=== PATIENT | female | born 1985 | race Caucasian/White ===

== ENCOUNTER 2019-09-21 09:35 | Outpatient (CLI) | payer OTHER, SELFPAY ==
--- NOTE | ~2019-09-21 | US_ITS ---
EXAMINATION: US pelvic complete w TV DATE: 09/21/2019 10:19 INDICATION: Possible ovarian cyst. Right pelvic pain. Mass seen on the right ovary on outside facilit y in 2008. Comparison:No prior studies for comparison. TECHNIQUE: Multiple transabdominal and endovaginal sonographic images of the pelvis performed. FINDINGS: The uterus is surgically absent. The left ovary is surgically absent. Right ovary measures 5.4 x 3.6 x 2.3 cm with normal vascularity. There is a complex mass of the right ovary with areas of increased echogenicity measuring 2.6 x 2.2 x 2.1 cm. There is no free fluid in the pelvis. There are no abnormal masses seen on either side. IMPRESSION: 1. Complex 2.6 cm right ovarian mass. Differential diagnosis includes complicated/hemorrhagic cyst, d ermoid, fibroma/thecoma and less likely malignant serous epithelial tumor. Reviewed, dictated and finalized at location A. IMPRESSION: 1. Complex 2.6 cm right ovarian mass. Differential diagnosis includes complicat ed/hemorrhagic cyst, dermoid, fibroma/thecoma and less likely malignant serous epithelial tumor.
== END 2019-09-21 09:36 | disposition home or self-care (01) ==
LOC: CHSIMG 09:42
PROVIDERS: PCP Physician Assistant
DX: N83.209 Unspecified ovarian cyst, unspecified side (principal)
CPT/HCPCS: 76830; 76856

== ENCOUNTER 2020-01-06 11:56 | Observation (INO) | payer OTHER, SELFPAY ==
--- NOTE | ~2020-01-06 | CT_ITS ---
EXAMINATION: CT chest abdomen pelvis wo con DATE: 01/07/2020 08:38 INDICATION: Cough. Nausea and vomiting. TECHNIQUE: Computed tomography (CT) of the chest, abdomen, and pelvis was performed without intraveno us contrast. Automated exposure control and iterative reconstruction technique were employed. The dos e-length product was 624.72 mGy-cm. COMPARISON: CT abdomen and pelvis 05/08/2018 FINDINGS: CHEST CT: There is mild atelectasis in right lower lobe. There is a 3 mm nodule left lower lobe, likely benign. Calcified left hilar lymph nodes are consistent with old granulomatous disease. No pleural effusion. The heart size is normal. No pericardial effusion. There is a small volume of pneumomediastinum. The re are nodules in the thyroid measuring up to 9 mm, likely not clinically significant. Peripherally c alcified masses in the breasts are likely benign. ABDOMEN/PELVIS CT: The liver and gallbladder are normal. Calcifications in the spleen are consistent with old granulomat ous disease. The pancreas, adrenal glands, and kidneys are normal. There is no urolithiasis. There ar e no dilated loops of bowel. The appendix is normal. There are no pathologically enlarged lymph nodes . There is no free intraperitoneal fluid. 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 There is mild lumba r spondylosis. Lumbar levoscoliosis is noted. IMPRESSION: 1. Small volume of pneumomediastinum. Reviewed, dictated and finalized at location A.
[2020-01-06 12:10] VITALS: BP 108/90; PULSE 84; RESP 18; TEMP 36.4; O2SAT 100
[2020-01-06 12:34] LABS: Hematocrit 40.1 % (35.0-49.0); Hemoglobin 13.7 g/dL (12.0-15.0); Mean Corpuscular HGB Conc 34.2 g/dL (32.0-36.0); Mean Corpuscular Hemoglobin 30.3 pg (27.0-31.0); Mean Corpuscular Volume 88.7 fL (78.0-102.0); Mean Platelet Volume 10.5 fl (9.2-11.8); Platelet Count Result 555 K/mm3 (150-420); Red Blood Count 4.52 M/mm3 (4.20-5.40); Red Cell Distribution Width 12.8 % (11.6-14.4); White Blood Count 13.3 K/mm3 (4.8-10.8)
[2020-01-06] MEDS: ONDANSETRON INJ 4 MG/2 ML VIAL IV PUSH (12:38)
[2020-01-06] MEDS: KETOROLAC 30 MG/ML VIAL (*BKC) IV PUSH (12:38)
[2020-01-06] MEDS: SODIUM CHLORIDE 0.9% IV 1,000 ML 999 ML IV CONT (12:38)
[2020-01-06 12:51] LABS: Alanine Aminotransferase 13 U/L (14-59); Albumin Level 4.3 g/dL (3.4-5.0); Alkaline Phosphatase 46 U/L (46-116); Anion Gap 19.4 mmol/L (7-16); Aspartate Amino Transferase 12 U/L (15-37); Bilirubin,Total 0.4 mg/dL (0.00-1.00); Blood Urea Nitrogen 59 mg/dL (7-18); Calcium 10.1 mg/dL (8.5-10.1); Carbon Dioxide 22 mmol/L (21-32); Chloride 98 mmol/L (98-108); Estimated CRCL calculation 25 ml/min; Estimated Glomerular Filt Rate 22; Glucose 110 mg/dL (70-99); Osmolality Calculated 297 mOsm/kg (285-295); Potassium 4.4 mmol/L (3.5-5.1); Sodium 135 mmol/L (136-145); Total Protein 8.6 g/dL (6.4-8.2)
--- NOTE | 2020-01-06 13:04 | ED.NAVMDI ---
HPI - Nausea/Vomiting/Diarrhea General Chief complaint: Nausea/Vomiting/Diarrhea Stated complaint: vomiting Source: patient Mode of arrival: ambulatory Limitations: no limitations History of Present Illness HPI Narrative: this is a 34-year-old female that presents with a 2 week history of nausea with vomiting has increased over the last 2 to 3 days with decreased oral intake secondary to the vomiting, has been vomiting more which is more mucus and watery emesis, with some epigastric discomfort secondary to retching and vomiting. The patient currently has chills with no fever, has a history of fibromyalgia. Has a not been able to drink in and eat that well over the last 2 to 3 days with the nausea and vomiting persisting for the last 2 weeks. Currently there is no diarrhea no fever chills no chest pain no shortness of breath no abdominal pain no dysuria. Patient also has a history of hypertension, currently blood pressure 108/90. MD elicited complaint: nausea and vomiting Onset (ago): week(s) Description of vomiting: watery Associated nausea: Yes Associated abdominal pain: No Location of pain: none Related Data Home Medications Medication Instructions Recorded Confirmed alprazolam 1 mg PO TID 06/16/19 01/06/20 diclofenac sodium 75 mg PO BID 06/16/19 01/06/20 gabapentin 600 mg PO TID 06/16/19 01/06/20 lisinopril 20 mg PO DAILY 06/16/19 01/06/20 nadolol 40 mg PO DAILY 06/16/19 01/06/20 tramadol 50 mg PO TID PRN 06/16/19 01/06/20 Allergies Allergy/AdvReac Type Severity Reaction Status Date / Time ampicillin Allergy Unknown Rash Verified 06/16/19 16:36 morphine Allergy Unknown Rash Verified 06/16/19 16:36 amoxicillin [From Augmentin] Allergy Rash Verified 06/16/19 16:36 clavulanic acid Allergy Rash Verified 06/16/19 16:36 [From Augmentin] metoclopramide [From Reglan] Allergy Unknown Verified 01/06/20 12:09 Review of Systems Review of Systems: All systems reviewed & are unremarkable except as noted in HPI and below PMFSH Past Medical History Medical History Fibromyalgia HTN (hypertension) Family History Family History Father Family history of cardiovascular disease Sibling Family history of malignant neoplasm of bone Social History Social History Smoking status: Never smoker Alcohol intake: never Exam Const: General: no acute distress Orientation/consciousness: patient oriented x3 HENMT: Head: normal to inspection Eyes: Pupils: Equal, round and reactive pupils present EOM: EOMs intact bilaterally Neck: Neck: normal visual inspection, no lymphadenopathy and no meningeal signs Chest: Chest palpation & inspection: normal inspection of the chest Resp: Effort & Inspection: normal respiratory effort Cardio: Rate: regular rate Rhythm: regular rhythm GI: GI Palp: Yes Soft to palpation : General: Yes no CVA tenderness Back/Spine/Pelvis: Back: no CVA tenderness Skin: General skin exam: normal color Rashes: no rashes Neuro: General: patient oriented x3 and moves all extremities Extrem: General: normal to inspection Psych: Mental Status: mental status grossly normal Course Course Emergency Course: reassessment of patient after she received IV Zofran and IV Toradol patient continues to have some retching vomiting has improved patient feels chilled, and advised that her creatinine is elevated showing that she has acute renal insufficiency on top of a dehydration and will admit patient under observation. With hydration and nausea and vomiting control. Vital Signs Vital signs: Vital Signs Temperature 36.4 C L 01/06/20 12:10 Pulse Rate 84 01/06/20 12:10 Respiratory Rate 18 01/06/20 12:10 Blood Pressure 108/90 01/06/20 12:10 Pulse Oximetry 100 01/06/20 12:10 Temperature 36.4 C L 01/06/20 12:10 P
[2020-01-06 13:13] VITALS: BP 139/78; PULSE 67; RESP 16; O2SAT 99
[2020-01-06 13:14] LABS: Add Urine Microscopic? YES; Appearance Urine Clear (Clear); Bilirubin Urine 2+ (Negative); Blood Urine Negative (Negative); Color Urine Yellow (Yellow); Glucose Urine UA Negative (Negative); Ketones Urine 1+ (Negative); Leukocyte Esterase Ur Negative (Negative); Nitrate Urine Negative (Negative); Protein Urine Trace (Negative); Specific Grav Ur >= 1.030 (1.010-1.020); Urobilinogen Urine 0.2 mg/dL (0.2-1.0)
[2020-01-06 13:19] LABS: Bacteria Urine 4+ /hpf; RBC Urine 0-2 /hpf (0-2); Squamous Epithelial Cell Urine Few /hpf (Few); WBC Urine 0-3 /hpf (0-3)
[2020-01-06 13:20] LABS: Mucus Urine Few /lpf
[2020-01-06 13:35] LABS: Lactic Acid Reflex 1.6 mmol/L (0.4-2.0)
[2020-01-06 13:50] VITALS: BMI 26.1
[2020-01-06 14:00] VITALS: BP 143/86; PULSE 63; RESP 18; TEMP 36.6; O2SAT 99
--- NOTE | 2020-01-06 14:09 | ADMGEN ---
This patient, Rubi Huber, was admitted to 2nd Floor Room 227-2. Patient/family oriented to hospital policies and general routines including ID bracelet, bed and alarms, visiting hours, pain management, procedures, bathroom and other care routines, personal items, smoking policy, room service/diet, and visiting hours. Valuables list has been completed. Information on how to activate the Rapid Response Team has been discussed. Patient/Family are encouraged to report perceived risks to care and to ask questions if they do not understand what they are told or what they should do.
[2020-01-06] MEDS: SODIUM CHLORIDE 0.9% IV 1,000 ML 100 ML IV CONT (15:11)
[2020-01-06] MEDS: GABAPENTIN 300 MG CAPSULE 600 MG PO (17:41)
[2020-01-06] MEDS: traMADol HCL 50 MG TABLET PO (17:41)
[2020-01-06] MEDS: ALPRAZolam 0.5 MG TABLET 1 MG PO (17:41)
--- NOTE | 2020-01-06 19:32 | PC.NURSE ---
Patient in bed resting. Alert and oriented x3. Call light in reach. Drinking water and eating saltine crackers.
[2020-01-06 20:00] VITALS: BP 105/67; PULSE 63; RESP 14; TEMP 36.3; O2SAT 98
--- NOTE | 2020-01-06 20:30 | PC.NURSE ---
Patient reports pain level at 2-acceptable level. Able to eat saltine crackers without nausea occuring.
--- NOTE | 2020-01-06 22:27 | PC.NURSE ---
Patient in bed. Pain level at 1 call light in reach.
--- NOTE | 2020-01-06 23:56 | PC.NURSE ---
Pt asleep and no signs of discomfort noted.
[2020-01-07] VITALS (9 sets, daily range): BP systolic 84–118; BP diastolic 50–76; PULSE 56–78; RESP 18–20; TEMP 36.3–37.2; O2SAT 96–99
--- NOTE | 2020-01-07 00:33 | PC.NURSE ---
Pt up to the bathroom and voided 100 ml of clear, yellow urine. Pt back to bed per self.
[2020-01-07] MEDS: SODIUM CHLORIDE 0.9% IV 1,000 ML 100 ML IV CONT ×2 (01:40→16:24)
--- NOTE | 2020-01-07 02:09 | PC.NURSE ---
0140 New bag of IV fluid hung and infusing as ordered.
--- NOTE | 2020-01-07 03:04 | PC.NURSE ---
Pt asleep and no signs of discomfort noted. IV fluid continues to infuse as ordered.
--- NOTE | 2020-01-07 04:39 | PC.NURSE ---
Pt asleep and no signs of nausea noted. IV fluid continues to infuse as ordered.
--- NOTE | 2020-01-07 04:59 | PC.NURSE ---
Notified Dr. Quijano of pt's low blood pressure; Orders received and noted.
[2020-01-07] MEDS: SODIUM CHLORIDE 0.9% IV 500 ML IV CONT (05:28)
[2020-01-07 05:55] LABS: Basophils Absolute Auto 0.04 K/mm3 (0.00-0.10); Basophils Percent Auto 0.6 % (0.0-1.0); Eosinophils Absolute Auto 0.26 K/mm3 (0.02-0.50); Eosinophils Percent Auto 3.6 % (1.0-6.0); Hematocrit 28.9 % (35.0-49.0); Hemoglobin 9.5 g/dL (12.0-15.0); Immature Granulocyte Absolute 0.02 K/mm3 (0.00-0.00); Immature Granulocyte Percent A 0.3 % (0.0-0.0); Lymphocytes Absolute Auto 2.68 K/mm3 (1.10-4.50); Lymphocytes Percent Auto 37.4 % (18.0-42.0); Mean Corpuscular HGB Conc 32.9 g/dL (32.0-36.0); Mean Corpuscular Hemoglobin 30.3 pg (27.0-31.0); Mean Platelet Volume 9.9 fl (9.2-11.8); Monocytes Absolute Auto 0.41 K/mm3 (0.10-0.90); Monocytes Percent Auto 5.7 % (2.0-11.0); Neutrophils Absolute Auto 3.8 K/mm3 (1.7-7.2); Neutrophils Percent Auto 52.4 % (50.0-70.0); Platelet Count Result 249 K/mm3 (150-420); Red Blood Count 3.14 M/mm3 (4.20-5.40); White Blood Count 7.2 K/mm3 (4.8-10.8)
[2020-01-07 06:11] LABS: Alanine Aminotransferase 8 U/L (14-59); Albumin Level 2.9 g/dL (3.4-5.0); Alkaline Phosphatase 32 U/L (46-116); Anion Gap 12.9 mmol/L (7-16); Aspartate Amino Transferase 12 U/L (15-37); Bilirubin,Total 0.3 mg/dL (0.00-1.00); Blood Urea Nitrogen 51 mg/dL (7-18); Carbon Dioxide 25 mmol/L (21-32); Chloride 103 mmol/L (98-108); Estimated CRCL calculation 32 ml/min; Estimated Glomerular Filt Rate 30; Glucose 79 mg/dL (70-99); Osmolality Calculated 296 mOsm/kg (285-295); Potassium 3.9 mmol/L (3.5-5.1); Sodium 137 mmol/L (136-145)
--- NOTE | 2020-01-07 06:28 | PC.NURSE ---
Pt resting quietly in bed and watching t.v. Pt voided 250 ml of clear, yellow urine. Pt doesnt voice any c/o nausea and IV fluid continues to infuse as ordered.
[2020-01-07] MEDS: ONDANSETRON INJ 4 MG/2 ML VIAL IV PUSH (07:20)
--- NOTE | 2020-01-07 07:24 | ECG_ITS ---
Measurements Intervals [place] Rate: 64 P: 79 [place]: 162 QRS: 62 QRSD: 92 T: 29 QT: 424 QTc: 440 Interpretive Statements SINUS RHYTHM BORDERLINE ST ABNORMALITY- INFERIOR LEADS BORDERLINE ECG Electronically Signed On 01-07-2020 8:23:05 CDT by Arthur Nick D.O.
[2020-01-07 07:46] LABS: Creatine Kinase 32 U/L (26-192); Lipase 203 U/L (73-393); Phosphorus 3.4 mg/dL (2.6-4.7)
[2020-01-07 07:47] LABS: Lactate Dehydrogenase 112 U/L (81-234); Magnesium 1.7 mg/dL (1.8-2.4)
[2020-01-07 07:48] LABS: Thyroid Stimulating Hormone Reflex 0.44 u/IU/mL (0.36-3.74); Troponin I < 0.02 ng/mL (0.00-0.056)
[2020-01-07] MEDS: PANTOPRAZOLE SODIUM IV 40 MG VIAL IV PUSH ×2 (08:09→21:33)
[2020-01-07] MEDS: diphenhydrAMINE HCl INJ 50 MG/ML VIAL IV PUSH (09:45)
[2020-01-07] MEDS: MAGNESIUM SULF 2 GM/WATER 50ML 2 GM/50 ML BAG IVPB (10:47)
[2020-01-07 11:19] LABS: Amphetamine Screen Urine Negative (Negative); Barbiturate Screen Urine Negative (Negative); Benzodiazepines Screen Urine Negative (Negative); Cannabinoid Screen Urine Negative (Negative); Cocaine Screen Urine Negative (Negative); Methadone Screen Urine Negative (Negative); Opiate Screen Urine Negative (Negative); Phencyclidine Screen Urine Negative (Negative)
--- NOTE | 2020-01-07 12:24 | PM.IMHP ---
H&P: HPI History of Present Illness Chief complaint: vomiting <Lisha Machuca, LINE FISHER - Last Filed: 01/07/20 15:25> Narrative: Rubi Huber is a 34 year old female admitted with Acute renal failure, dehydration, Nausea, and Vomiting. She has had a 2 week history of nausea with vomiting; increased over the last 2 to 3 days with decreased oral intake secondary to the vomiting. Her vomiting is more mucus and watery emesis, with some epigastric discomfort secondary to retching and vomiting. The patient currently has chills with no fever, has a history of fibromyalgia. She has not been able to drink or eat that well over the last 2 to 3 days. The nausea and vomiting persisted for the last 2 weeks. Today, she denies, diarrhea, fever, chills, chest pain , shortness of breath, abdominal pain, but did admit to dysuria. Patient also has a history of hypertension, currently blood pressure 108/90 at admission. She takes lisinopril and nadolol for HTN. Rubi has been taking oral Cipro for the last week due to her having a tooth abscessed. She had phoned in to her dentist and received a prescription for the oral Cipro. She stated that she probably got in about 4-5 days of the oral Cipro without vomiting it back up, but doubted that she absorbed the last 2-3 days of her Cipro. She did state that the few days she could keep her Cipro down did bring her great relief to her to his. She stated that the pain and swelling was much reduced and improved. She now only has jaw or gum or dental pain with deep palpation or biting down on the tooth. She stated that she was unable to get an appointment with her dentist because of the backup of appointments due to COVID. In the ED, she received IV Zofran, and IV Toradol. Her PCP is RADHA Carlin. This morning she continued to have strong retching and vomiting episodes. Ordered her to have an NPO except meds diet. She denies any anxiety at this time, denies chest pain or shortness of breath or nausea, denies any back pain or persistent abdominal pain. She states that she feels a squeezing-type pressure near her belly button area and feels like the only way she can get relief is to vomit. She does not get any relief with bowel movements or with passing gas or with burping. She is not having any excessive flatulence or burping at this time. She is not having diarrhea at this time. She states that she did have 1 episode of emesis with a very small amount of coffee-grounds, and 1 episode of a stool that had been darkened. We have ordered occult stool sample. Her hemoglobin and hematocrit on her CBC is stable and she is currently not having an active GI bleed per assessment, upper or lower. I have ordered Continuous cardiac telemetry monitoring, IV Benadryl, IV Ativan p.r.n., IV Protonix b.i.d., IV bactrim, and IV Zofran. Her CT scan Chest/abd/pelvis did show Small volume of pneumomediastinum. I did telephone and speak to the radiologist Dr. Travis, Aidan Cain MD and he stated that he would not transfer this patient due to that finding. Dr. Travis stated the pneumomediastinum was mild and a small amount, and would resolve spontaneously on his own without any intervention, and that it was likely from her prolonged and multiple episodes of retching and vomiting over the last many days. Both Dr. Boyle and I examined the patient extensively for any concerns that might be related to pneumomediastinum, she is not having any difficulty swallowing pills or medications or breathing, she is not having any dyspnea or shortness of breath or chest pain or hypotension or tachycardia or fever, she does not have any subcutaneous air in her neck or upper chest or shoulders , no distended neck veins, and no abnormal heart sounds at this time. I educated the patient about the urgency of letting us know if anything changes. This afternoon her nausea and vomiting had improved enough that she was requesting some crackers. Changed h
[2020-01-07] MEDS: GABAPENTIN 300 MG CAPSULE 600 MG PO ×2 (13:48→17:09)
[2020-01-07] MEDS: traMADol HCL 50 MG TABLET PO ×2 (13:48→21:39)
--- NOTE | 2020-01-07 16:26 | PM.EVENT ---
Event Note Event Note Event Note: Nausea and vomiting for several weeks, recently worse assoc. with intermittent lower abdominal pain. Has been on Cipro for a tooth abscess. About 3 weeks ago was on nitrofurantoin for UTI and dysuria. Pt. states dysuria recurred today. Pt developed hypotenstion this AM which has resolved. She has pyuria, acute kidney disease, and drop in hgb from 13.7 to 9.[address] abdomen gives no clues on etiology. I spoke with patient who states she had one episode of dark emesis and one episode of dark stools. Pt. has epigastric tenderness without guarding or rebound. I reviewed case with Lisha Hsu NP. and reviewed note. UTI: Will tx with IV Bactrim (If UTI organism sens. to fluoroquinolone Cipro should have treated it). Abd pain: treat for gastritis. Could be ms. tenderness from vomiting; possibly g.b. sludge and biliary colic. Acute kidney disease: suspect prerenal azotemia. Will follow BUN/Cr. Continue po and IV fluids. Drop in hemoglobin likely related to hemoconcentration and fluid replacement. Cause of anemia has not been identified. May need upper endoscopy.Follow stool for blood. Tx. with PPI, follow CBC.
[2020-01-07] MEDS: PHENAZOPYRIDINE HCL 100 MG TABLET 200 MG PO (17:08)
--- NOTE | 2020-01-07 18:20 | PC.NURSE ---
Patient resting in bed with hob elevated. IV fluids cont. per order. Patient states pyridium is helping with bladder spasms/pain. Reports no needs at this time. call light at side.
--- NOTE | 2020-01-07 19:35 | PC.NURSE ---
pt resting in bed watching tv, denies any pain or needs at this time, iv fluids infusing per order
--- NOTE | 2020-01-07 21:30 | PC.NURSE ---
pt resting in bed watching tv, c/o bladder pain, medication given see MAR, iv fluids infusing per order, denies any other needs at this time.
--- NOTE | 2020-01-07 22:46 | PC.NURSE ---
pt sleeping, no evidence of distress noted at this time, iv fluids infusing per order
--- NOTE | 2020-01-08 00:47 | PC.NURSE ---
pt sleeping, no evidence of distress noted at this time, iv fluids infusing per order
--- NOTE | 2020-01-08 02:24 | PC.NURSE ---
pt sleeping, no evidence of distress noted at this time
[2020-01-08] MEDS: SODIUM CHLORIDE 0.9% IV 1,000 ML 100 ML IV CONT (04:29)
[2020-01-08 04:45] VITALS: BP 92/48; PULSE 58; RESP 18; TEMP 36.5; O2SAT 97
--- NOTE | 2020-01-08 04:45 | PC.NURSE ---
pt resting in bed, denies any pain, iv fluids infusing per order
[2020-01-08 06:04] LABS: Basophils Absolute Auto 0.04 K/mm3 (0.00-0.10); Basophils Percent Auto 0.7 % (0.0-1.0); Eosinophils Absolute Auto 0.22 K/mm3 (0.02-0.50); Eosinophils Percent Auto 3.8 % (1.0-6.0); Hematocrit 27.2 % (35.0-49.0); Hemoglobin 9.1 g/dL (12.0-15.0); Immature Granulocyte Absolute 0.02 K/mm3 (0.00-0.00); Immature Granulocyte Percent A 0.3 % (0.0-0.0); Lymphocytes Percent Auto 37.8 % (18.0-42.0); Mean Corpuscular HGB Conc 33.5 g/dL (32.0-36.0); Mean Corpuscular Hemoglobin 30.5 pg (27.0-31.0); Mean Corpuscular Volume 91.3 fL (78.0-102.0); Monocytes Absolute Auto 0.33 K/mm3 (0.10-0.90); Monocytes Percent Auto 5.7 % (2.0-11.0); Neutrophils Percent Auto 51.7 % (50.0-70.0); Platelet Count Result 210 K/mm3 (150-420); Red Blood Count 2.98 M/mm3 (4.20-5.40); Red Cell Distribution Width 12.9 % (11.6-14.4); White Blood Count 5.8 K/mm3 (4.8-10.8)
[2020-01-08 06:22] LABS: Alanine Aminotransferase 8 U/L (14-59); Albumin Level 2.6 g/dL (3.4-5.0); Alkaline Phosphatase 27 U/L (46-116); Aspartate Amino Transferase 11 U/L (15-37); Bilirubin,Total 0.2 mg/dL (0.00-1.00); Blood Urea Nitrogen 25 mg/dL (7-18); Calcium 7.9 mg/dL (8.5-10.1); Carbon Dioxide 23 mmol/L (21-32); Chloride 106 mmol/L (98-108); Estimated CRCL calculation 38 ml/min; Estimated Glomerular Filt Rate 36; Glucose 82 mg/dL (70-99); Osmolality Calculated 289 mOsm/kg (285-295); Sodium 138 mmol/L (136-145); Total Protein 5.6 g/dL (6.4-8.2)
[2020-01-08 08:00] VITALS: BP 106/64; PULSE 70; RESP 18; TEMP 36.7; O2SAT 96
--- NOTE | 2020-01-08 08:39 | PM.DS ---
DS: Admitting Diagnosis Admitting Diagnosis Admitting Diagnosis: Acute kidney failure, unspecified DS: Discharge Diagnosis Discharge Diagnosis (1) Acute renal failure: Qualifiers: Acute renal failure type: unspecified Qualified Code(s): N17.9 - Acute kidney failure, unspecified Code(s): N17.9 - Acute kidney failure, unspecified Status: Acute Assessment and Plan: slowly improving creatinine level Creatinine level now 1.6 patient stated that a history of having renal insufficiency before. her May 2019 creatinine was 1.25 at her last ER visit when she had a UTI at that time. Her creatinine at ER admission for this visit was 2.48, with an improved creatinine this morning of 1.92. she is able to keep fluids down and has been instructed to continue oral hydration at home continue to monitor with lab work she was also educated about avoiding nephrotoxic medications she will need to follow-up with her primary care physician for further lab work and monitoring (2) Nausea & vomiting: Qualifiers: Vomiting Intractability: non-intractable Vomiting type: unspecified Qualified Code(s): R11.2 - Nausea with vomiting, unspecified Code(s): R11.2 - Nausea with vomiting, unspecified Status: Acute Assessment and Plan: resolved retching and vomiting episodes. bland diet ordered denies any anxiety at this time, denies abdominal pain now, states its more like bladder cramps with urination not having diarrhea at this time. ordered occult stool sample. hemoglobin and hematocrit on her CBC is stable and she is currently not having an active GI bleed per assessment, upper or lower. D/C'd continuous IV fluids PRN IV Benadryl, IV Ativan p.r.n., IV Protonix b.i.d., IV bactrim, and IV Zofran. NO s/s of Concerns of pneumomediastinum on Exam. Nausea and vomiting has much improved overnight and this morning. (3) UTI (urinary tract infection): Code(s): N39.0 - Urinary tract infection, site not specified Status: Acute Assessment and Plan: her May 2019 creatinine was 1.25 at her last ER visit when she had a UTI at that time. Her creatinine at ER admission for this visit was 2.48, with an improved creatinine this morning of 1.92. Improved further to 1.61 urinalysis shows evidence of a urinary tract infection but urine culture and blood cultures show no growth (possible colonizers) checked for Trichamonas - negative. continued her Bactrim from IV to oral at discharge for a full course her creatinine clearance has improved since her admission adquately rehydrated will need to f/u with PCP may get urine culture AFTER all antibiotics are done DS: Summary Time Spent with Patient Time attestation: Total time spent providing and/or coordinating discharge services:>90 Exam Const: General: no acute distress; No confusion Orientation/consciousness: patient oriented x3 and No confusion HENMT: Head: normal to inspection Eyes: Pupils: Equal, round and reactive pupils present EOM: EOMs intact bilaterally Direct Ophthalmoscopy: No photophobia Neck: Neck: normal visual inspection, no lymphadenopathy and no meningeal signs Chest: Chest palpation & inspection: normal inspection of the chest Resp: Effort & Inspection: normal respiratory effort Cardio: Rate: regular rate Rhythm: regular rhythm : General: Yes no CVA tenderness Back/Spine/Pelvis: Back: no CVA tenderness Skin: General skin exam: normal color Rashes: no rashes Neuro: General: patient oriented x3, moves all extremities, no meningeal signs and No confusion Cranial nerves: Yes Equal, round and reactive pupils present and Yes Normal hearing present Speech: No Abnormal speech present Extrem: General: normal to inspection Psych: Mental Status: mental status grossly normal DS: Data Data Completed and Pending Labs on day of discharge: Labs from last 24 hours 01/08/20 0
[2020-01-08 08:46] LABS: Magnesium 1.8 mg/dL (1.8-2.4)
[2020-01-08] MEDS: PHENAZOPYRIDINE HCL 100 MG TABLET 200 MG PO ×2 (10:15→13:14)
[2020-01-08] MEDS: GABAPENTIN 300 MG CAPSULE 600 MG PO ×2 (10:15→13:48)
[2020-01-08] MEDS: PANTOPRAZOLE SODIUM IV 40 MG VIAL IV PUSH (10:16)
[2020-01-08] MEDS: ONDANSETRON INJ 4 MG/2 ML VIAL IV PUSH (11:39)
[2020-01-08 12:00] VITALS: BP 110/77; PULSE 70; PULSE 72; RESP 18; TEMP 36.8; O2SAT 100
[2020-01-08 13:05] VITALS: BP 110/77; PULSE 70
[2020-01-08 13:06] VITALS: BP 138/81; PULSE 72
[2020-01-08 13:07] VITALS: BP 121/92; PULSE 80
[2020-01-08 15:40] LABS: Occult Blood Negative (Negative)
[2020-01-08 15:46] LABS: Trichomonas Negative (Negative); Trichomonas Source Vaginal (Female)
== END 2020-01-08 16:40 | disposition home or self-care (01) ==
LOC: CHSED 13:32 → CHS2ND 13:33
PROVIDERS: Nurse Practitioner; Admitting Provider Emergency Medicine; Emergency Provider Emergency Medicine; PCP Physician Assistant; Visit Provider Emergency Medicine
DX: E86.0 Dehydration (principal); R11.2 Nausea with vomiting, unspecified; N17.9 Acute kidney failure, unspecified; N39.0 Urinary tract infection, site not specified; M79.7 Fibromyalgia; I10 Essential (primary) hypertension
CPT/HCPCS: 36415; 71250; 74176; 80053; 80307; 81001; 82272; 82550; 82553; 83605; 83615; 83690; 83735; 84100; 84443; 84484; 85025; 85027; 87040; 87086; 87088; 87210; 93005; 96361; 96365; 96366; 96367; 96374; 96375; 96376; 99283; 99285; A9270; C9113; G0378; G0379; J1200; J1885; J1956; J2060; J2405; J3475; J7030; J7040; J7060

== ENCOUNTER 2020-04-04 14:22 | Emergency (ER) | payer OTHER, SELFPAY ==
--- NOTE | ~2020-04-04 | CT_ITS ---
EXAMINATION: CT abdomen pelvis w con INDICATION: Nausea, vomiting, and diarrhea TECHNIQUE: Computed tomographic images of the abdomen and pelvis were obtained after the administrati on of 100 cc of Omnipaque 350 intravenous contrast. The dose-length product (DLP) was 695.87 mGy-cm. Automated exposure control and iterative reconstruction technique were employed. COMPARISON: 01/07/2020, 05/08/2018 FINDINGS: The lung bases are clear. The heart size is normal. Peripherally calcified masses of the ri ght breast with fat necrosis. Punctate calcification of the otherwise normal spleen is consistent wit h old granulomatous disease. The liver, pancreas, gallbladder, and adrenal glands are normal. The kid neys are unremarkable. No pathologically enlarged abdominal or pelvic lymph nodes are identified. The re is no free intraperitoneal gas or evidence of bowel obstruction. The appendix is normal. IMPRESSION: 1. No CT correlate for the patient's symptoms. Reviewed, dictated and finalized at location A.
--- NOTE | 2020-04-04 14:26 | ED.NAVMDI ---
HPI - Nausea/Vomiting/Diarrhea General Chief complaint: Nausea/Vomiting/Diarrhea Stated complaint: nausea vomiting diarrhea Source: patient and RN notes reviewed Mode of arrival: ambulatory Limitations: no limitations History of Present Illness MD elicited complaint: nausea, vomiting and diarrhea Onset (ago): hour(s) (8) Description of vomiting: food contents and bilious Description of diarrhea: watery Associated nausea: Yes Associated abdominal pain: No Exacerbating factors: eating Relieving factors: none Associated symptoms: denies other symptoms Treatment prior to arrival: other ( Reglan) Related Data Home Medications Medication Instructions Recorded Confirmed alprazolam 1 mg PO TID 06/16/19 04/04/20 diclofenac sodium 75 mg PO BID 06/16/19 04/04/20 gabapentin 600 mg PO TID 06/16/19 04/04/20 lisinopril 20 mg PO DAILY 06/16/19 04/04/20 nadolol 40 mg PO DAILY 06/16/19 04/04/20 tramadol 50 mg PO TID PRN 06/16/19 04/04/20 ondansetron 8 mg PO TID PRN 04/04/20 04/04/20 Allergies Allergy/AdvReac Type Severity Reaction Status Date / Time ampicillin Allergy Unknown Rash Verified 04/04/20 14:52 morphine Allergy Unknown Rash Verified 04/04/20 14:52 amoxicillin [From Augmentin] Allergy Rash Verified 04/04/20 14:52 clavulanic acid Allergy Rash Verified 04/04/20 14:52 [From Augmentin] metoclopramide [From Reglan] Allergy Unknown Verified 04/04/20 14:52 sulfamethoxazole Allergy Unknown Verified 04/04/20 14:52 [From Septra] trimethoprim [From Septra] Allergy Unknown Verified 04/04/20 14:52 Review of Systems Review of Systems: All systems reviewed & are unremarkable except as noted in HPI and below PMFSH Past Medical History Medical History Fibromyalgia HTN (hypertension) Family History Family History Father Family history of cardiovascular disease Sibling Family history of malignant neoplasm of bone Social History Social History Years smoked: 8 Smoking status: Former smoker Tobacco type: cigarettes Smoking end date: 06/30/11 Alcohol intake: never Substance use: never Gender identity (if verbalized by the patient): Female Spiritual care concerns: No Exam Const: General: no acute distress and ill appearing acutely Nutritional Appearance: well nourished Other: female nurse in room during examination. HENMT: Head: normal to inspection Ears: external ears normal Eyes: Cornea: corneas normal Pupils: Equal, round and reactive pupils present EOM: EOMs intact bilaterally Resp: Effort & Inspection: normal respiratory effort Auscultation: clear to auscultation bilaterally Cardio: Rate: regular rate Rhythm: regular rhythm GI: GI Palp: Yes Soft to palpation, Yes Tenderness to palpation present (GI) ( Mild, generalized), No Guarding due to palpation present (GI) and No Rebound tenderness present Auscultation: normal bowel sounds : General: Yes no CVA tenderness Back/Spine/Pelvis: Cervical Spine: cervical ROM normal Thoracic/Lumbar Spine: thoraco-lumbar ROM normal Skin: General skin exam: normal color Rashes: no rashes Neuro: General: patient oriented x3, moves all extremities and no focal motor deficits Speech: normal speech Gait exam (Neuro): Normal gait present Extrem: General: normal to inspection and no clubbing, cyanosis or edema Psych: Appearance: grossly normal and well kempt Mental Status: mental status grossly normal Affect: normal affect Attitude: cooperative Thought content: Yes Normal thought content present Course Vital Signs Vital signs: Vital Signs Temperature 36.4 C 04/04/20 14:41 Pulse Rate 77 04/04/20 14:41 Respiratory Rate 20 04/04/20 14:41 Blood Pressure 125/91 H 04/04/20 14:41 Pulse Oximetry 97 04/04/20 14:41 Temperature 36.4 C 04/04/20 14:41 Pulse Rate 72 10
[2020-04-04 14:41] VITALS: BP 125/91; PULSE 77; RESP 20; TEMP 36.4; O2SAT 97
[2020-04-04 14:48] LABS: Basophils Absolute Auto 0.06 K/mm3 (0.00-0.10); Basophils Percent Auto 0.4 % (0.0-1.0); Eosinophils Absolute Auto 0.56 K/mm3 (0.02-0.50); Eosinophils Percent Auto 3.8 % (1.0-6.0); Hematocrit 42.4 % (35.0-49.0); Hemoglobin 14.6 g/dL (12.0-15.0); Immature Granulocyte Absolute 0.05 K/mm3 (0.00-0.00); Immature Granulocyte Percent A 0.3 % (0.0-0.0); Lymphocytes Absolute Auto 2.32 K/mm3 (1.10-4.50); Lymphocytes Percent Auto 15.9 % (18.0-42.0); Mean Corpuscular HGB Conc 34.4 g/dL (32.0-36.0); Mean Corpuscular Hemoglobin 30.5 pg (27.0-31.0); Mean Corpuscular Volume 88.5 fL (78.0-102.0); Monocytes Percent Auto 3.4 % (2.0-11.0); Neutrophils Absolute Auto 11.1 K/mm3 (1.7-7.2); Neutrophils Percent Auto 76.2 % (50.0-70.0); Platelet Count Result 471 K/mm3 (150-420); Red Blood Count 4.79 M/mm3 (4.20-5.40); Red Cell Distribution Width 12.3 % (11.6-14.4); White Blood Count 14.6 K/mm3 (4.8-10.8)
[2020-04-04 14:50] LABS: Add Urine Microscopic? YES; Appearance Urine Clear (Clear); Bilirubin Urine 1+ (Negative); Blood Urine Negative (Negative); Color Urine Yellow (Yellow); Glucose Urine UA Negative (Negative); Ketones Urine Negative (Negative); Leukocyte Esterase Ur Negative LEU/UL (Negative); Nitrate Urine Negative (Negative); Protein Urine Trace (Negative); Specific Grav Ur >= 1.030 (1.010-1.020); Urobilinogen Urine 0.2 mg/dL (0.2-1.0)
[2020-04-04] MEDS: PROMETHAZINE HCL 25 MG/ML AMPUL IM (14:55)
[2020-04-04 14:56] LABS: Bacteria Urine 3+ /hpf; RBC Urine 0-2 /hpf (0-2); Squamous Epithelial Cell Urine Moderate /hpf (Few); WBC Urine 0-3 /hpf (0-3)
[2020-04-04 15:04] LABS: Alanine Aminotransferase 27 U/L (14-59); Albumin Level 4.2 g/dL (3.4-5.0); Alkaline Phosphatase 62 U/L (46-116); Anion Gap 11 mmol/L (8-16); Aspartate Amino Transferase 14 U/L (15-37); Bilirubin,Total 0.4 mg/dL (0.00-1.00); Blood Urea Nitrogen 16 mg/dL (7-18); CRP 0.7 mg/dL (0.0-0.9); Calcium 9.4 mg/dL (8.5-10.1); Carbon Dioxide 24 mmol/L (21-32); Chloride 103 mmol/L (98-108); Estimated CRCL calculation 51 ml/min; Estimated Glomerular Filt Rate 52; Glucose 110 mg/dL (70-99); Lipase 117 U/L (73-393); Osmolality Calculated 288 mOsm/kg (285-295); Potassium 4.3 mmol/L (3.5-5.1); Sodium 138 mmol/L (136-145); Total Protein 8.3 g/dL (6.4-8.2)
[2020-04-04 16:51] VITALS: PULSE 72; RESP 20; O2SAT 98
== END 2020-04-04 16:53 | disposition home or self-care (01) ==
PROVIDERS: Emergency Provider Emergency Medicine; PCP Physician Assistant
DX: K52.9 Noninfective gastroenteritis and colitis, unspecified (principal)
CPT/HCPCS: 36415; 74177; 80053; 81001; 83690; 85025; 86140; 96372; 99283; 99284; J2550; Q9965

== ENCOUNTER 2020-10-04 09:11 | Outpatient (CLI) | payer OTHER, SELFPAY ==
--- NOTE | ~2020-10-04 | US_ITS ---
EXAMINATION: US pelvic complete w TV EXAM DATE: 10/04/2020 10:26 INDICATION: Cyst of ovary . TECHNIQUE: Pelvic transabdominal and transvaginal sonogram was performed. There are multiple graysca le and Doppler images available for interpretation. Comparison is made to prior examination from 09/20. FINDINGS: Uterus is not identified. The vaginal cuff is unremarkable. Left ovary not identified. No f ree pelvic fluid. Right ovary measures 4.0 x 2.0 x 2.1 cm with low resistance vascular flow confirmed. Scattered small follicles are present up to 1.9 cm in size. These measurements are smaller than on previous examinati on. IMPRESSION: Unremarkable right ovary. Reviewed, dictated and finalized at location A. IMPRESSION: Unremarkable right ovary.
== END 2020-10-04 09:12 | disposition home or self-care (01) ==
PROVIDERS: PCP Physician Assistant; Visit Provider Nurse Practitioner Family
DX: N83.209 Unspecified ovarian cyst, unspecified side (principal)
CPT/HCPCS: 76830; 76856

== ENCOUNTER 2021-06-21 16:25 | Outpatient (CLI) | payer OTHER, SELFPAY ==
[2021-06-21 16:42] LABS: Basophils Percent Auto 0.8 % (0.0-1.0); Eosinophils Absolute Auto 0.94 K/mm3 (0.02-0.50); Eosinophils Percent Auto 7.2 % (1.0-6.0); Hematocrit 44.8 % (35.0-49.0); Hemoglobin 15.2 g/dL (12.0-15.0); Immature Granulocyte Absolute 0.04 K/mm3 (0.00-0.00); Immature Granulocyte Percent A 0.3 % (0.0-0.0); Lymphocytes Absolute Auto 4.05 K/mm3 (1.10-4.50); Mean Corpuscular HGB Conc 33.9 g/dL (32.0-36.0); Mean Corpuscular Hemoglobin 30.8 pg (27.0-31.0); Mean Corpuscular Volume 90.7 fL (78.0-102.0); Mean Platelet Volume 9.5 fl (9.2-11.8); Monocytes Absolute Auto 1.01 K/mm3 (0.10-0.90); Monocytes Percent Auto 7.7 % (2.0-11.0); Neutrophils Absolute Auto 6.9 K/mm3 (1.7-7.2); Platelet Count Result 331 K/mm3 (150-420); Red Blood Count 4.94 M/mm3 (4.20-5.40); Red Cell Distribution Width 13.7 % (11.6-14.4); White Blood Count 13.1 K/mm3 (4.8-10.8)
[2021-06-21 16:50] LABS: Monoscreen Negative (Negative); Negative Monotest Control Negative (Negative); Positive Monotest Control Positive (Positive)
== END 2021-06-21 16:26 | disposition home or self-care (01) ==
LOC: CHSIMG 16:27 → CHSLAB 16:31
PROVIDERS: PCP Physician Assistant; Visit Provider Physician Assistant
DX: B27.90 Infectious mononucleosis, unspecified without complication (principal)
CPT/HCPCS: 36415; 85025; 86308

== ENCOUNTER 2021-09-15 08:52 | Outpatient (CLI) | payer OTHER, SELFPAY ==
--- NOTE | ~2021-09-15 | MR_ITS ---
EXAMINATION: MR hip LT wo con DATE: 09/15/2021 09:46 INDICATION: Left hip pain TECHNIQUE: Magnetic resonance imaging (MRI) of the affected hip was performed without intravenous co ntrast. Sequences included full-field axial PD-weighted FS FSE and T1-weighted FSE, coronal of the pe lvis with PD-weighted FS FSE, small field of view of the affected hip with axial PD-weighted FS FSE, sagittal PD-weighted FS FSE and coronal PD weighted FS FSE. COMPARISON: None FINDINGS: Bones/labrum/cartilage: Partially visualized mild lumbar levocurvature and severe disc height loss at L5-S1. Alignment is oth erwise normal. No fracture, avascular necrosis or pathologic marrow replacing process. Labrum is norm al. Articular cartilage is normal. Fluid: Symmetric physiologic amount of fluid within both hip joints. Asymmetric mild increased fluid signal overlying the left greater trochanter cyst with mild trochanteric bursitis. Soft tissues: Normal and symmetric muscle bulk and signal in the pelvis and visualized proximal thighs. Mild tendin opathy of the left gluteus medius tendon. The right gluteus medius and bilateral gluteus minimus tend ons are normal. The iliopsoas and proximal hamstring tendons are normal. 2.3 cm right ovarian cyst. T he uterus and left ovary are not identified and have likely been surgically resected. No pathological ly enlarged pelvic/inguinal lymphadenopathy. IMPRESSION: 1. Mild left trochanteric bursitis and mild left gluteus medius tendinopathy without discrete tear. 2. Mild lumbar levocurvature with severe disc height loss at L5-S1. Reviewed, dictated and finalized at location A. IMPRESSION: 1. Mild left trochanteric bursitis and mild left gluteus medius tendinopathy wi thout discrete tear. 2. Mild lumbar levocurvature with severe disc height loss at L5-S1.
== END 2021-09-15 08:53 | disposition home or self-care (01) ==
LOC: CHSIMG 08:55
PROVIDERS: PCP Physician Assistant; Visit Provider Physician Assistant
DX: M25.552 Pain in left hip (principal)
CPT/HCPCS: 73721

== ENCOUNTER 2022-02-27 10:58 | Outpatient (RCR) | payer OTHER, SELFPAY ==
--- NOTE | 2022-02-27 12:53 | PTOPEVAL1 ---
Evaluation Information Assessment Status Evaluation Diagnosis lumbar, bilateral shoulder, bilateral hip pain Onset 01/29/22 Subjective Information Pt. has been experiences pain at multiple joints. She reports that her main area of pain is her low back. She states that she can general inspector 1 location or sit in one location for extended periods of time. She reports that she has been through physical therapy multiple times. She reports that she does not do much physical activity. She currently works from home and sit the majority of the day. She reports that she can walk for a couple of blocks or approximately 15 minutes before having to sit. She has young daughters and is not able to participate in much physical activity due to pain. She reports that her goal is to decrease her low back pain. Reported Pain Level Pain Score 5: Self Report Assessment PT Clinical Summary Pt. is a 37 year old female who enters the clinic due to multiple areas of pain. She presents with indication of core/lumbar instability. She currently presents with impaired trunk mobility, impaired u.e. and l.e. strength, impaired postural awareness, and functional decline. Continued treatment is indicated in order to improve these areas to allow the pt. to be able to complete all IADL's and particpate in recreational activities with family with improved comfort and efficiency. Plan of Care Interventions Electrical Stimulation,Hot Pack/Cold Pack,Manual Therapy,Therapeutic Activities,Therapeutic Exercise PT Services Indicated Yes Treatment Frequency and 1x/week x 6 visits Duration These treatments will address the objective and functional deficits as defined above. The patient will be advanced safely and appropriately in order for the patient to progress towards his/her prior level of function. Additional exercises will be introduced and as well as a comprehensive home exercise program upon discharge, if needed, ?to ensure carryover of functional gains achieved in the clinic. This treatment plan has been reviewed and agreement upon by the patient.
--- NOTE | 2022-04-17 16:12 | PTOPPROG ---
Assessment and note entered by JT File, PT Evaluation Information Assessment Status Progress Diagnosis lumbar, bilateral shoulder, bilateral hip pain Onset 01/29/22 Subjective Information patient reports she has been doing her exercises independently at home. however, she did take a 4.5 mile hike in hey dud tennis shoes this past weekend and her legs and back have been sore and tight since. Assessment PT Clinical Summary mrs. nelson presents to skilled PT with increased pain in the lower back and soreness/ tightness in ther LE's. she has had a flare up of pain since a long walk a few days ago. she continues to display weakness in the hips, core, and decreased flexibility of the LE's. she would do well to continue skilled PT to achieve her objective/functional goals. Plan of Care Interventions Electrical Stimulation,Gait Training,Manual Therapy,Neuro Re-education,Patient/Caregiver Educati,Therapeutic Activities,Therapeutic Exercise Treatment Frequency and 2x weekly for 4 more visits after today. Duration These treatments will address the objective and functional deficits as defined above. The patient will be advanced safely and appropriately in order for the patient to progress towards his/her prior level of function. Additional exercises will be introduced and as well as a comprehensive home exercise program upon discharge, if needed, ?to ensure carryover of functional gains achieved in the clinic. This treatment plan has been reviewed and agreement upon by the patient.
--- NOTE | 2022-05-31 17:20 | BUPTOPEVAL1 ---
Assessment and note entered by JT File, PT Evaluation Information Assessment Status Re-evaluation Diagnosis lumbar, bilateral shoulder, bilateral hip pain Onset 01/29/22 Subjective Information patient reports she has been away from therapy due to illness this past month. she reports she is better now, and will be more consistent as she is bringing her daughter to therapy as well. she reports she continues to have pain in the lower back, but no pain down the legs. nshe reports she has not been as consistent with her HEP as she has been sick, and her whole family has been sick. Reported Pain Level Pain Score 6: Self Report Assessment PT Clinical Summary mrs. nelson presents to skilled PT roughly 1 month since her last re-evaluation. she has not been able to attend therapy due to illness of herself and family. she continues to display deficits in hip strength, core stability, and funcitonal activity performance. she would do well to continue skilled PT with new POC below. she will be increased in frequency to allow for greater attention to objective/funcitonal deficits with more frequent skilled education to achieve goals. Plan of Care Interventions Electrical Stimulation,Gait Training,Manual Therapy,Neuro Re-education,Patient/Caregiver Educati,Therapeutic Activities,Therapeutic Exercise PT Services Indicated Yes Treatment Frequency and 2x weekly for 6 more visits Duration These treatments will address the objective and functional deficits as defined above. The patient will be advanced safely and appropriately in order for the patient to progress towards his/her prior level of function. Additional exercises will be introduced and as well as a comprehensive home exercise program upon discharge, if needed, ?to ensure carryover of functional gains achieved in the clinic. This treatment plan has been reviewed and agreement upon by the patient.
== END 2022-05-14 23:59 | disposition home or self-care (01) ==
LOC: CHSPT 10:58
PROVIDERS: Visit Provider Nurse Practitioner Family
DX: R10.2 Pelvic and perineal pain (principal)
CPT/HCPCS: 97014; 97110; 97140; 97161; 97530; G0283

== ENCOUNTER 2022-06-10 11:57 | Outpatient (CLI) | payer OTHER, SELFPAY ==
[2022-06-10 12:43] LABS: Basophils Absolute Auto 0.11 K/mm3 (0.00-0.10); Basophils Percent Auto 0.7 % (0.0-1.0); Eosinophils Absolute Auto 0.32 K/mm3 (0.02-0.50); Hematocrit 49.3 % (35.0-49.0); Immature Granulocyte Absolute 0.04 K/mm3 (0.00-0.00); Immature Granulocyte Percent A 0.2 % (0.0-0.0); Lymphocytes Absolute Auto 4.54 K/mm3 (1.10-4.50); Mean Corpuscular HGB Conc 34.5 g/dL (32.0-36.0); Mean Corpuscular Hemoglobin 31.3 pg (27.0-31.0); Mean Corpuscular Volume 90.8 fL (78.0-102.0); Mean Platelet Volume 9.6 fl (9.2-11.8); Monocytes Absolute Auto 0.81 K/mm3 (0.10-0.90); Neutrophils Absolute Auto 10.4 K/mm3 (1.7-7.2); Neutrophils Percent Auto 64.1 % (50.0-70.0); Platelet Count Result 371 K/mm3 (150-420); Red Blood Count 5.43 M/mm3 (4.20-5.40); Red Cell Distribution Width 13.6 % (11.6-14.4); White Blood Count 16.2 K/mm3 (4.8-10.8)
[2022-06-10 12:56] LABS: Add Urine Microscopic? YES; Appearance Urine Clear (Clear); Bilirubin Urine 1+ (Negative); Blood Urine Negative (Negative); Color Urine Yellow (Yellow); Glucose Urine UA Negative (Negative); Ketones Urine Negative (Negative); Leukocyte Esterase Ur Negative LEU/UL (Negative); Nitrate Urine Negative (Negative); Protein Urine 2+ (Negative); Specific Grav Ur >= 1.030 (1.010-1.020); Urobilinogen Urine 0.2 mg/dL (0.2-1.0)
[2022-06-10 13:02] LABS: Bacteria Urine 2+ /hpf; RBC Urine None seen /hpf (0-2); Squamous Epithelial Cell Urine Occasional /hpf (Few); WBC Urine 0-3 /hpf (0-3)
[2022-06-10 15:24] LABS: Alanine Aminotransferase 30 U/L (14-59); Alkaline Phosphatase 75 U/L (46-116); Anion Gap 10 mmol/L (8-16); Aspartate Amino Transferase 18 U/L (15-37); Bilirubin,Total 0.4 mg/dL (0.00-1.00); Blood Urea Nitrogen 8 mg/dL (7-18); Calcium 9.3 mg/dL (8.5-10.1); Carbon Dioxide 26 mmol/L (21-32); Chloride 101 mmol/L (98-108); Estimated Glomerular Filt Rate > 60; Glucose 78 mg/dL (70-99); Osmolality Calculated 281 mOsm/kg (285-295); Potassium 4.3 mmol/L (3.5-5.1); Sodium 137 mmol/L (136-145); Total Protein 7.8 g/dL (6.4-8.2)
[2022-06-10 15:41] LABS: Erythrocyte Sedimentation Rate 1 mm/hr (0-15)
[2022-06-10 16:14] LABS: Rheumatoid Factor Screen Negative (Negative)
[2022-06-12 12:13] LABS: NIL 0.02 IU/mL; Quantiferon TB Plus, 1T NEGATIVE (NEGATIVE)
[2022-06-13 21:46] LABS: Cyclic Citrullinated Peptide <16 Units (<20)
[2022-06-14 15:01] LABS: SS-A <1.0; SS-B <1.0
[2022-06-16 03:15] LABS: Hepatitis B Core Ab Total Nonreactive (Nonreactive)
[2022-06-16 19:44] LABS: Hepatitis B Surface Antigen Nonreactive (Nonreactive); Hepatitis C Signal to Cutoff 0.01 ratio (<1.00); Hepatitis C Virus Antibody Nonreactive (Nonreactive)
[2022-06-17 22:55] LABS: Estradiol, Ultrasensitive 293 pg/mL
[2022-06-18 06:05] LABS: HLA B27 Negative (Negative)
== END 2022-06-10 11:58 | disposition home or self-care (01) ==
LOC: CHSLAB 12:10
DX: M13.0 Polyarthritis, unspecified (principal); R23.2 Flushing; R30.0 Dysuria
CPT/HCPCS: 36415; 80053; 81001; 82670; 85025; 85652; 86038; 86140; 86235; 86430; 86480; 86704; 86812

== ENCOUNTER 2022-06-17 08:07 | Outpatient (CLI) | payer OTHER, SELFPAY ==
--- NOTE | ~2022-06-17 | XR_ITS ---
Right Hand Technique: PA, oblique, and lateral views were obtained. Clinical History: Polyarthritis Findings: No acute fracture or dislocation is seen. Osseous alignment is anatomic. Joint spaces are p reserved. Soft tissues are unremarkable. Impression: Unremarkable right hand. Reviewed, dictated and finalized at location [] INE OPERATIONS SUPERVISOR Impression: Unremarkable right hand.
--- NOTE | ~2022-06-17 | XR_ITS ---
AP and oblique views of the SI joints CLINICAL HISTORY: Polyarthritis FINDINGS: SI joints are unremarkable. No sclerosis, erosive change, or joint space narrowing. Visuali zed hip joints are unremarkable. Soft tissues are unremarkable. IMPRESSION: Unremarkable exam. Reviewed, dictated and finalized at location [] ALLMENT LOAN COLLECTOR IMPRESSION: Unremarkable exam.
--- NOTE | ~2022-06-17 | XR_ITS ---
Left foot Technique: AP, oblique, and lateral weightbearing views were obtained. Clinical History: Polyarthritis Findings: No acute fracture or dislocation is seen. Osseous alignment is anatomic. Joint spaces are p reserved without erosive or degenerative change. Soft tissues are unremarkable. Impression: Unremarkable left foot radiographs. Reviewed, dictated and finalized at location [] HYSICS PROFESSOR Impression: Unremarkable left foot radiographs.
--- NOTE | ~2022-06-17 | XR_ITS ---
Left Hand Technique: PA, oblique, and lateral views were obtained. Clinical History: Polyarthritis Findings: No acute fracture or dislocation is seen. Osseous alignment is anatomic. Joint spaces are p reserved. Soft tissues are unremarkable. Impression: Unremarkable left hand. Reviewed, dictated and finalized at location [] SEALER Impression: Unremarkable left hand.
--- NOTE | ~2022-06-17 | XR_ITS ---
Right wrist Technique: PA, oblique, lateral, and ulnar deviation views were obtained. Clinical History: Arthritis Findings: No acute fracture or dislocation is seen. Osseous alignment is anatomic. Joint spaces are p reserved. Soft tissues are unremarkable. Impression: Unremarkable right wrist radiographs. Reviewed, dictated and finalized at location [] CT CONTROL AIDE Impression: Unremarkable right wrist radiographs.
--- NOTE | ~2022-06-17 | XR_ITS ---
Right foot Technique: AP, oblique, and lateral weightbearing views were obtained. Clinical History: Polyarthritis Findings: No acute fracture or dislocation is seen. Osseous alignment is anatomic. Joint spaces are p reserved without erosive or degenerative change. Soft tissues are unremarkable. Impression: Unremarkable right foot radiographs. Reviewed, dictated and finalized at location [] TAL SERVICE ENGINEER Impression: Unremarkable right foot radiographs.
--- NOTE | ~2022-06-17 | XR_ITS ---
Left wrist Technique: PA, oblique, lateral, and ulnar deviation views were obtained. Clinical History: Polyarthritis Findings: No acute fracture or dislocation is seen. Osseous alignment is anatomic. Joint spaces are p reserved. Soft tissues are unremarkable. Impression: Unremarkable left wrist radiographs. Reviewed, dictated and finalized at location [] H SHEARER Impression: Unremarkable left wrist radiographs.
[2022-06-17 09:21] LABS: Cholesterol 180 mg/dL (0-200); HDL Direct 33 mg/dL (40-60); LDL Cholesterol Calculated 108 mg/dL (<130); Thyroid Stimulating Hormone 2.96 uIU/mL (0.36-3.74); Triglycerides 193 mg/dL (0-150)
[2022-06-21 11:52] LABS: Insulin Level Total 5.8 uIU/mL (<=19.6)
[2022-06-24 06:45] LABS: C-Peptide 3.28 ng/mL (0.80-3.85); FSH 5.6 mIU/mL (***)
== END 2022-06-17 08:08 | disposition home or self-care (01) ==
LOC: CHSIMG 08:16
DX: Z00.00 Encounter for general adult medical examination without abnormal findings (principal); R63.5 Abnormal weight gain; R23.2 Flushing; M13.0 Polyarthritis, unspecified
CPT/HCPCS: 36415; 72202; 73110; 73130; 73630; 80061; 83001; 83525; 84443; 84681

== ENCOUNTER 2023-09-03 14:00 | Outpatient (RCR) | payer OTHER, SELFPAY ==
--- NOTE | 2023-09-03 15:00 | OPREHPOC ---
Outpatient Therapy Plan of Care This is a Multidisciplinary Plan of Care that may contain components documented by all disciplines (PT, OT, and ST.) PT Problem 1 PT Problem #1 Knowledge Deficit PT Goal 1 Goal 1. independent and compliant with HEP Target Visit 6 PT Problem 2 PT Problem #2 Pain PT Goal 1 Goal 1. decrease pain at worst to 3/10 or less in the lower back 2. centralization of all radicular symptoms in the L LE to not past the hip. Target Visit 12 PT Problem 3 PT Problem #3 Impaired Strength PT Goal 1 Goal 1. patient to hold bridge in neutral spine position for 30 seconds 2. improve bilateral hip strength to 5/5 without pain Target Visit 12 PT Problem 4 PT Problem #4 Impaired Range of Motion PT Goal 1 Goal 1. patient to achieve active flexion to the mid rodriguez or lower 2. patient to achieve equal side bending to 30 degrees or better bilat Target Visit 12 PT Problem 5 PT Problem #5 Impaired Functional Mobil PT Goal 1 Goal 1. oswestry to display less than 30% functional decline 2. patient to squat and safely lift 30lbs from floor to waist without pain 3. patient to tolerate sitting in chair for 2 hours at a time without pain to tolerate work 4. patient to stand and walk for 1 hour or more without pain to allow for participation in functional activities/workout regimen Target Visit 12
--- NOTE | 2023-09-03 15:00 | PTOPEVAL1 ---
Assessment and note entered by JT File, PT Evaluation Information Assessment Status Evaluation Diagnosis low back pain Onset 07/16/23 Subjective Information patient reports she pinched a nerve at L5/S1. she reports it has gotten better since it began in June. she reports she can walk now, but she still gets pinching/severe pain with changing positions. she reports she has been seeing [facility] since injury. she reports she was told she cannot have an MRI until she tried PT due to having one 2 years ago. she reports she has also not had any recent xrays. she reports she also has increased pain with standing and walking. she reports she does get pain down the L LE. she reports it was initially all the way down to the ankle, but now is to the knee. she reports she developed this pain after sitting on a hard chair for 5 hours. she reports this was not an injury related to bending or lifting. Reported Pain Level Pain Score 7: Self Report Assessment PT Clinical Summary mrs. nelson is a 38 yo woman who presents to skilled PT services for evaluation and treatment of lower back pain. she presents this date with signs and symptoms consistent with a discoid injury of the lower back. she presents with decreased lumbar rom, core weakness, pain, and special test indicating a flexion injury of the lumbar spine. she would benefit from continued skilled PT to address her objective/functional deficits and return to her prior level functional activity performance and quality of life. Plan of Care Interventions Electrical Stimulation,Gait Training,Hot Pack/Cold Pack,Manual Therapy,Mechanical Traction,Neuro Re- education,Patient/Caregiver Educati,Therapeutic Activities,Therapeutic Exercise PT Services Indicated Yes Treatment Frequency and 3x weekly for 12 visits Duration These treatments will address the objective and functional deficits as defined above. The patient will be advanced safely and appropriately in order for the patient to progress towards his/her prior level of function. Additional exercises will be introduced and as well as a comprehensive home exercise program upon discharge, if needed, ?to ensure carryover of functional gains achieved in the clinic. This treatment plan has been reviewed and agreement upon by the patient.
--- NOTE | 2023-09-09 16:36 | PCPTNOTE ---
no call no show
--- NOTE | 2023-09-10 09:09 | PCPTNOTE ---
09/10/23: Pt cancelled today's appointment due to a conflict with a doctor's appointment. -Elena Rahman, PT
--- NOTE | 2023-10-08 14:30 | OPREHPOC ---
Outpatient Therapy Plan of Care This is a Multidisciplinary Plan of Care that may contain components documented by all disciplines (PT, OT, and ST.) PT Problem 1 PT Problem #1 Knowledge Deficit PT Goal 1 Goal 1. independent and compliant with HEP Target Visit 6 Progress Met PT Problem 2 PT Problem #2 Pain PT Goal 1 Goal 1. decrease pain at worst to 3/10 or less in the lower back 2. centralization of all radicular symptoms in the L LE to not past the hip. Target Visit 12 Progress Partially Met Comment progressing, continue PT Problem 3 PT Problem #3 Impaired Strength PT Goal 1 Goal 1. patient to hold bridge in neutral spine position for 30 seconds. met 2. improve bilateral hip strength to 5/5 without pain. met Target Visit 12 Progress Met PT Problem 4 PT Problem #4 Impaired Range of Motion PT Goal 1 Goal 1. patient to achieve active flexion to the mid rodriguez or lower 2. patient to achieve equal side bending to 30 degrees or better bilat Target Visit 12 Progress Met PT Problem 5 PT Problem #5 Impaired Functional Mobil PT Goal 1 Goal 1. oswestry to display less than 30% functional decline 2. patient to squat and safely lift 30lbs from floor to waist without pain 3. patient to tolerate sitting in chair for 2 hours at a time without pain to tolerate work 4. patient to stand and walk for 1 hour or more without pain to allow for participation in functional activities/workout regimen Target Visit 12 Progress Not Met
--- NOTE | 2023-10-08 14:30 | PTOPREEVAL ---
Assessment and note entered by JT File, PT Evaluation Information Assessment Status Re-evaluation Diagnosis low back pain Onset 07/16/23 Subjective Information patient reports she is a bit better. she reports she stood at a track meet yesterday for 2.5 hours and had pain with movement out of this position. she reports she has not had severe pain for nearly 3 weeks. she reports this is the first time PT has made a significant improvement. she reports she has symptoms down the back of the L LE still, but only now to the back of the mid thigh and not down to the knee. she reports it is no as constant either, and is now more of a quick jolt. she would like to continue therapy as it is helping her this time. Reported Pain Level Pain Score 3: Self Report Assessment PT Clinical Summary mrs. nelson presents to skilled PT services for her 10th skilled PT visit. she displays decreased pain at rest and at worst in the past week. she displays improve hip and core strength, and less radicular symptoms. as of this date, she has met goals for HEP performance, LE and core strength, and rom. however, she continues to have not met her goals for pain and functional performance. she reports this being the best therapy has ever helped her with back pain, and she would like to continue. due to her significant objective/ functional improvements, but continued lack of achievement of goals, patient would benefit from continued skilled PT. Plan of Care Interventions Electrical Stimulation,Gait Training,Hot Pack/Cold Pack,Manual Therapy,Mechanical Traction,Neuro Re- education,Patient/Caregiver Educati,Therapeutic Activities,Therapeutic Exercise PT Services Indicated Yes Treatment Frequency and continue skilled PT 3x weekly for 9 more visits Duration These treatments will address the objective and functional deficits as defined above. The patient will be advanced safely and appropriately in order for the patient to progress towards his/her prior level of function. Additional exercises will be introduced and as well as a comprehensive home exercise program upon discharge, if needed, ?to ensure carryover of functional gains achieved in the clinic. This treatment plan has been reviewed and agreement upon by the patient.
--- NOTE | 2023-10-24 17:18 | PTOPDC ---
Assessment and note entered by Xochitl Ríos DPT Evaluation Information Assessment Status Re-evaluation Diagnosis low back pain Onset 07/16/23 Subjective Information patient reports she is changing insurance and is not sure if she will have a lapse in coverage. she reports she is able to sit in a chair for about 25 minutes before pain sets in. she reports overall since starting PT her pain has decreased and that has never happened with PT. standing in one place increases pain but does report increased ability to walk. Reported Pain Level Pain Score 8: Self Report Assessment PT Clinical Summary Mrs. Navarrete attended 12 visits of skilled PT with some progress towards goals. Overall she reports she has decreased pain levels. She reports improvement in ability to walk prolonged distances. She reports continued pain with sitting and standing for long periods of time. She reports she is needing to stop therapy at this time due to change in insurance. She is independent with HEP and is agreeable to DC at this time. Plan of Care PT Services Indicated No
== END 2023-12-02 23:59 | disposition home or self-care (01) ==
LOC: CHSPT 14:00
PROVIDERS: Visit Provider Nurse Practitioner Family
DX: M54.50 Low back pain, unspecified (principal)
CPT/HCPCS: 97014; 97110; 97140; 97161; G0283

== ENCOUNTER 2023-11-13 08:11 | Outpatient (CLI) | payer OTHER, SELFPAY ==
--- NOTE | ~2023-11-13 | MR_ITS ---
MRI of the lumbar spine Clinical History: Back pain Technique: Axial T2-weighted images, and sagittal T1-weighted, T2-weighted, and T2 fat-sat images wer e acquired. Findings: There is no fracture or subluxation of the lumbar spine. Vertebral bodies maintain normal h eight and alignment. No suspicious bone marrow signal abnormality seen. At L1-L2, there is no disc bulge or herniation. There is mild facet arthropathy. No central canal kellen nosis or neural foraminal narrowing. At L2-L3 and L3-L4, there is minimal degenerative disc change with moderate facet arthropathy but no disc bulge or herniation. No spinal canal stenosis or neural foraminal narrowing at these levels. At L4-L5, there is left paracentral disc protrusion with moderate facet arthropathy. There may be foc al impingement of the descending left-sided L5-S1 level nerve root. No alecia spinal canal stenosis. T here is minimal left neural foraminal narrowing. Right neural foramen preserved. At L5-S1, there is moderate degenerative disc narrowing. There is a left paracentral disc protrusion with moderate facet arthropathy. No alecia central canal stenosis. Neural foramina are preserved. Paravertebral soft tissues are unremarkable. Impression: Left paracentral to foraminal disc protrusion at L4-L5, which may focally impinge the descending left -sided L5-S1 level nerve root. Additional mild degenerative changes, as above. Reviewed, dictated and finalized at [facility]. Impression: Left paracentral to foraminal disc protrusion at L4-L5, which may focally impin ge the descending left-sided L5-S1 level nerve root. Additional mild degenerative changes, as above.
== END 2023-11-13 08:12 | disposition home or self-care (01) ==
PROVIDERS: Visit Provider Nurse Practitioner Family
DX: M51.26 Other intervertebral disc displacement, lumbar region (principal); M47.896 Other spondylosis, lumbar region; M47.897 Other spondylosis, lumbosacral region
CPT/HCPCS: 72148

== ENCOUNTER 2024-04-29 07:26 | Outpatient (CLI) | payer OTHER, SELFPAY ==
--- NOTE | ~2024-04-29 | MR_ITS ---
EXAMINATION: MR thoracic spine wo con DATE: 04/29/2024 08:25 INDICATION: Thoracic spine pain. TECHNIQUE: Magnetic resonance imaging (MRI) of the thoracic spine was performed without intravenous c ontrast. COMPARISON: None FINDINGS: There is 4 degrees dextrocurvature of thoracic spine. Vertebral body heights are normal. In tervertebral disc heights are normal. The discs do not extend beyond the endplate margins. There is m ultilevel mild facet joint osteoarthritis. At T10-T11, there is mild bilateral neural foraminal steno sis. No central canal stenosis. The spinal cord signal intensity is normal. IMPRESSION: 1. Mild thoracic spondylosis. Reviewed, dictated and finalized at location B.
== END 2024-04-29 07:27 | disposition home or self-care (01) ==
PROVIDERS: Visit Provider Nurse Practitioner Family
DX: M54.6 Pain in thoracic spine (principal); M43.04 Spondylolysis, thoracic region
CPT/HCPCS: 72146

== ENCOUNTER 2025-04-20 09:16 | Emergency (ER) | payer MEDICAID, SELFPAY ==
[2025-04-20 09:16] VITALS: BP 150/102; PULSE 94; RESP 18; TEMP 36.6; O2SAT 100
--- NOTE | 2025-04-20 09:26 | ED.WOUNDLAC ---
HPI - Wound/Laceration General Chief Complaint: Skin/Abscess/Foreign Body Stated Complaint: wound check Time Seen by Provider: 04/20/25 09:21 Source: patient Mode of arrival: ambulatory Limitations: no limitations History of Present Illness HPI narrative: 40 year old female presents to the Emergency Department for wound check. Patient had a neurostimulator placed 04/08/25. She had suture pop yesterday. Here for wound check. Denies any purulent drainage, no fever, no pain. Onset (ago): day(s) (1) Location: back Place: home Patient tetanus UTD: Yes Context: other (post op wound ) Associated symptoms: none Treatments prior to arrival: bandage Related Data Home Medications ?Medication ?Instructions ?Recorded ?Confirmed ?Last Taken ?Type diclofenac sodium 75 mg 75 mg PO BID 06/16/19 04/20/25 Unknown History tablet,delayed release gabapentin 300 mg capsule 600 mg PO TID 06/16/19 04/20/25 Unknown History lisinopril 20 mg tablet 20 mg PO DAILY 06/16/19 04/20/25 04/04/20 History Held on 01/08/20. Instructions: Resume on 01/28/20. Hold per Discharge instructions and/or until you see your Primary Care Provider. tramadol 50 mg tablet 50 mg PO TID PRN Pain 06/16/19 04/20/25 04/04/20 History ondansetron 8 mg disintegrating 8 mg PO TID PRN Nausea 04/04/20 04/20/25 04/04/20 History tablet atorvastatin 10 mg tablet mg 04/20/25 Unknown History baclofen 10 mg tablet mg 04/20/25 Unknown History bupropion HCl 300 mg 24 hr tablet, mg PO 04/20/25 Unknown History extended release ergocalciferol (vitamin D2) 1,250 04/20/25 Unknown History mcg (50,000 unit) capsule escitalopram oxalate 10 mg tablet mg 04/20/25 Unknown History famotidine 20 mg tablet mg 04/20/25 Unknown History hydrocodone 5 mg-acetaminophen 325 tablet 04/20/25 Unknown History mg tablet meclizine 12.5 mg tablet mg 04/20/25 Unknown History montelukast 10 mg tablet mg 04/20/25 Unknown History nebivolol 10 mg tablet mg 04/20/25 Unknown History nortriptyline 10 mg capsule mg 04/20/25 Unknown History ropinirole 0.5 mg tablet mg 04/20/25 Unknown History tofacitinib 11 mg tablet,extended mg PO 04/20/25 Unknown History release 24 hr (Xeljanz XR) varenicline tartrate 0.5 mg (11)-1 ea 04/20/25 Unknown History mg (42) tablets in a dose pack Allergies Allergy/AdvReac Type Severity Reaction Status Date / Time ampicillin Allergy Unknown Rash Verified 04/20/25 09:19 morphine Allergy Unknown Rash Verified 04/20/25 09:19 amoxicillin (From Augmentin) Allergy Rash Verified 04/20/25 09:19 clavulanic acid (From Allergy Rash Verified 04/20/25 09:19 Augmentin) metoclopramide (From Reglan) Allergy Unknown Verified 04/20/25 09:19 sulfamethoxazole (From Allergy Unknown Verified 04/20/25 09:19 Septra) trimethoprim (From Septra) Allergy Unknown Verified 04/20/25 09:19 Review of Systems Review of Systems: All systems reviewed & are unremarkable except as noted in HPI and below Constitutional: Constitutional: Reports as per HPI Eyes: Eyes: Reports as per HPI ENT: Reports as per HPI Cardiovascular: Cardiovascular: Reports as per HPI Respiratory: Respiratory: Reports as per HPI Gastrointestinal: Gastrointestinal: Reports as per HPI Genitourinary: Genitourinary: Reports as per HPI Musculoskeletal: Musculoskeletal: Reports no additional musculoskeletal complaints and Reports as per HPI Integumentary/Breasts: Skin/Breast: Reports system reviewed and no additional complaints, except as docu and Reports as per HPI Neurologic: Reports as per HPI Psychiatric: Psychiatric: Reports as per HPI Endocrine: Endocrine: Reports as per HPI Hematologic/Lymphatic: Hematologic/Lymphatic: Reports as per HPI Allergic/Immunologic: Allergic/Immunologic: Reports as per HPI PMFSH Past Medical History Medical History (Updated 04/20/25 @ 09:34 by Trev Smith MD) HTN (hypertension) Fibromyalgia Family History Family History Father Family history of cardiovascular disease Sibling Family history of malignant neoplasm of bone Social History Social History Years smoked: 8 Smoking status: Former smoker Tobacco type: cigarettes Smoking end date: 06/30/11 Alcohol intake: never Substance use: never Gender identity (if verbalized by the patient): Female Spiritual care concerns: No Exam Const: General: healthy appearing Nutritional Appearance: well nourished Orientation/consciousness: patient oriented x3 Limitations: no limitations HENMT: Head: normal to inspection Ears: external ears normal Face/Nose/Sinus: Normal external nose present Face and sinus: normal facial exam Eyes: Pupils: Equal, round and reactive pupils present EOM: EOMs intact bilaterally Direct Ophthalmoscopy: no photophobia Neck: Neck: normal visual inspection Chest: Chest palpation & inspection: normal inspection of the chest Resp: Effort & Inspection: normal respiratory effort Cardio: Rate: regular rate GI: Inspection: non-distended Back/Spine/Pelvis: Back: no CVA tenderness Skin: General skin exam: normal color Rashes: no rashes Other: 2 post operative incision sites to back. No evidence of infection. Sutures in place and wounds healing well. No drainage. Neuro: General: patient oriented x3 Other: grossly normal Extrem: General: normal to inspection Psych: Mental Status: mental status grossly normal Course Course Emergency Course: 40 y/o female presents to the ED for post op wound check. Patient had neurostimulator placed 04/08/25. Had suture pop yesterday. PE: wound appear clean, healing well, no evidence of infection Instructions Vital Signs Vital signs: Vital Signs Temperature 36.6 C 04/20/25 09:16 Pulse Rate 94 04/20/25 09:16 Respiratory Rate 18 04/20/25 09:16 Blood Pressure 150/102 H 04/20/25 09:16 Pulse Oximetry 100 04/20/25 09:16 Oxygen Delivery Room Air 04/20/25 09:16 Temperature 36.6 C 04/20/25 09:16 Pulse Rate 94 04/20/25 09:16 Respiratory Rate 18 04/20/25 09:16 Blood Pressure 150/102 H 04/20/25 09:16 Pulse Oximetry 100 04/20/25 09:16 Oxygen Delivery Room Air 04/20/25 09:16 Discharge Plan Discharge Clinical Impression: Encounter for post surgical wound check Patient Disposition: Home Condition: Stable Instructions: Cellulitis (ED) Additional Instructions: Monitor wounds for signs of infection Follow up your surgeon as directed Return as needed Patient Language: Guamanian Prescriptions: No Action lidocaine [Lidoderm] 5 % Adhesive Patch,Medicated 3 patch transdermal DAILY PRN (Reason: aches) 14 Days 0RF sucralfate [Carafate] 1 gram tablet 1 gm PO QID PRN (Reason: Gastric erosion) 14 Days Qty: 56 0RF Rx Instructions: Take approximately 1 hour BEFORE meals. pantoprazole [Protonix] 40 mg tablet,delayed release (DR/EC) 40 mg PO QAM 28 Days Qty: 28 0RF ondansetron 8 mg tablet,disintegrating 8 mg PO TID PRN (Reason: Nausea) metronidazole 500 mg tablet 500 mg PO Q8H Qty: 30 0RF lisinopril 20 mg tablet 20 mg PO DAILY tramadol 50 mg tablet 50 mg PO TID PRN (Reason: Pain) gabapentin 300 mg capsule 600 mg PO TID diclofenac sodium 75 mg tablet,delayed release (DR/EC) 75 mg PO BID atorvastatin 10 mg tablet hydrocodone-acetaminophen 5-325 mg tablet meclizine 12.5 mg tablet famotidine 20 mg tablet baclofen 10 mg tablet nortriptyline 10 mg capsule ropinirole 0.5 mg tablet montelukast 10 mg tablet ergocalciferol (vitamin D2) 1,250 mcg (50,000 unit) capsule escitalopram oxalate 10 mg tablet bupropion HCl 300 mg tablet extended release 24 hr PO varenicline tartrate 0.5 mg (11)- 1 mg (42) tablets,dose pack nebivolol 10 mg tablet Xeljanz XR 11 mg tablet extended release 24 hr PO Follow-up/Referrals: UNKNOWN,DOCTOR [Primary Care Provider] Time of Disposition: 09:34
--- OUTSIDE RECORDS SUMMARY | 2025-04-20 10:16 | XMS_ITS | Clinical Summary ---
Author Organization [facility] Address [address] [place] [address] Phone Care Team Providers Care Account Executive Healthcare Name Role Phone LIN PATEL MD Unavailable Unavailable Reason for Visit and Chief Complaint NO SHOW Problems Includes: Problems addressed during this encounter and other active Problems All Visits Onset Date Resolved Date Provider Condition S tatus History of Tubal Ligation 02/07/2015 DAVID GOLDEN RN [facility] Active Last Documented On 02/07/2015 1:11PM ; [facility] Note: Unchanged Essential Hypertension 02/07/2015 DAVID GOLDEN RN [facility] Active Last Documented On 02/07/2015 1:11PM ; [facility] Note: Unchanged Dysfunctional Uterine Bleeding 02/07/2015 ADVID GOLDEN RN [facility] Active Last Documented On 02/07/2015 1:11PM ; [facility] Note: Unchanged Plan of Treatment No Plan of Treatment Recorded Assessments Includes: Assessments from this encounter No Assessments Recorded Medical Equipment - Implanted Devices Includes: Current Devices No Medical Equipment Recorded Medications Includes: Medications discussed during this encounter and other current Medications Current Medications (continue as prescribed) Reglan 10MG Oral Tablet 03/20/2018 Provider: Diagnosis: 1 tab QID prn Last Documented On 8 11:25AM By QUAN COYLE ; [facility] BuPROPion HCl ER (XL) 150MG Oral Tablet Extended Release 24 Hour 03/20/2018 Provider: Diagnosis: 1 tab BID Last Documented On 8 11:25AM By QUAN COYLE ; [facility] CloNIDine HCl 0.2MG Oral Tablet 03/20/2018 Provider: Diagnosis: 1 tab daily Last Documented On 8 11:25AM By QUAN COYLE ; [facility] Citalopram Hydrobromide 20MG Oral Tablet 03/20/2018 Provider: Diagnosis: 1 tab daily Last Documented On 8 11:25AM By QUAN COYLE ; [facility] gabapentin 300mg Oral Capsule 03/20/2018 Provider: Diagnosis: 2 pills TID Last Documented On 8 11:23AM By QUAN COYLE ; [facility] Diclofenac Sodium 75MG Oral Tablet Delayed Release Provider: Diagnosis: 1 pill BID Last Documented On 8 11:23AM By QUAN COYLE ; [facility] Lisinopril 20MG Oral Tablet 03/20/2018 Provider: Diagnosis: 1 tab once daily Last Documented On 8 11:24AM By QUAN COYLE ; [facility] TiZANidine HCl 4MG Oral Tablet 03/20/2018 Provider: Diagnosis: 1 tab TID prn Last Documented On 8 11:24AM By QUAN COYLE ; [facility] Nadolol 40MG Oral Tablet 03/20/2018 Provider: Diagnosis: 1 tab once daily Last Documented On 8 11:24AM By QUAN COYLE ; [facility] ALPRAZolam 0.5MG Oral Tablet 03/20/2018 Provider: Diagnosis: 1 tab TID Last Documented On 8 11:24AM By QUAN COYLE ; [facility] clonazePAM 1 MG OR TABS 08/10/2014 Provider: Diagnosis: Last Documented On 08/19/2014 9:18AM By KARI COYLE ; [facility] TraMADol HCl 50 MG Tablet 05/24/2014 Provider: Diagnosis: Last Documented On 11/10/2014 8:26AM By KARI COYLE ; [facility] Medications Administered Includes: Administered Medications from this encounter No Administered Medications Recorded Results Includes: Results discussed during this encounter No Results Recorded For Specified Dates History of Present Illness Includes: History of Present Illness from this encounter No History of Present Illness Recorded Social History No Social History Recorded - Smoking Status Unknown Medical History Includes: Medical History addressed during this encounter No Medical History Recorded Family History Includes: Family History addressed during this encounter No Family History Recorded Review of Systems Includes: Review of Systems from this encounter No Review of Systems Recorded Mental Status Includes: Mental Status from this encounter No Mental Status Recorded Functional Status Includes: Functional Status from this encounter No Functional Status Recorded Physical Exam Includes: Physical Exam from this encounter No Physical Exam Recorded Allergies Includes: Active Allergies Substance Type Reaction Onset Date Resolved Date Statu s Morphine Sulfate Allergy Nausea, Vomitin g, Diarrhea / Diarrheal disorder 08/19/2014 Active Last Documented On 8 11:22AM ; [facility] Encounters Encounter Provider Location Date Check-In Time Check-Out Time Diagnosis NO SHOW LEILA DE LA CRUZ-ROBINSON [facility] 04/30/2018 2:53PM 11:59PM Insurance Includes: Active Insurance Policies Plan Name Member ID Group # Subscriber Relationship Effect demetra Dates - [facility] [id number] JOSE FERRELL Self Clinical Notes Includes: Clinical Notes from this encounter No Clinical Notes Recorded
--- OUTSIDE RECORDS SUMMARY | 2025-04-20 10:16 | XMS_ITS | Clinical Summary ---
Author Organization [facility] Address [address] [place] [address] Phone Care Team Providers Care Time Analysis Clerk Name Role Phone Danish Gibbs Primary Care Provider [phone] Airam Simpson PAC Unavailable [phone] Bhargav Jefferson MD Unavailable [phone] Manish Hassan DO Unavailable Unavailabl e Allergies Active Allergy Reactions Criticality Noted Date Comments Adhesive Tape Hives High 06/05/2016 Ampicillin Hives,Rash,Itching 06/05/2016 Morphine Vomiting 05/24/2015 Wound Dressing Adhesive Hives High 06/05/2016 Medications diclofenac (VOLTAREN) 75 MG Tablet Delayed Response Take 75 mg by mouth 2 times daily. Active traMADol (ULTRAM) 50 MG Tablet Take 50 mg by mouth every 6 hours. Reported on 06/28/2016 Active ALPRAZolam (XANAX) 0.25 MG Tablet Take 0.25 mg by mouth 3 times daily as needed for Anxiety. Active gabapentin (NEURONTIN) 300 MG Capsule Take 300 mg by mouth 3 times daily. Active Active Problems Problem Noted Date Diagnosed Date Lumbosacral radiculopathy 06/16/2017 Open wound of left female breast 05/31/2016 Acute mastitis of left breast 05/28/2016 Psoriasis 05/19/2016 Protein calorie malnutrition 05/19/2016 Leukocytosis 05/19/2016 Cellulitis of left breast 05/18/2016 Hypokalemia 05/18/2016 Acute kidney injury 05/18/2016 Generalized anxiety disorder 08/02/2015 Lumbar degenerative disc disease 07/26/2015 Lumbar facet arthropathy 07/26/2015 Fibromyalgia affecting multiple sites 07/26/2015 Essential hypertension 05/24/2015 Immunizations Immunization Administration Dates Next Due Influenza Vaccine, Quadrivalent, PF 05/19/2016 Family History Medical History Relation Name Comments Cancer Brother TJ Diabetes Father Stew Attention Deficit Hyperactivity Disorder Maternal Aunt Jeremi Breast Cancer Maternal Aunt Jeremi Breast Cancer Maternal Grandmother Asthma Mother Lilia Depression Mother Lilia Relation Name Status Comments Brother TJ Alive Father Stew Alive Maternal Aunt Jeremi Alive Maternal Grandmother Mother Lilia Alive Social History Tobacco Use Types Packs/Day Years Used Date Smoking Tobacco: Former Cigarettes 1 15 1 07/24/2000 - 05/23/2016 Smokeless Tobacco: Former Tobacco Cessation:Counseling Given: No Alcohol Use Standard Drinks/Week Comments Yes 0 (1 standard drink = 0.6 oz pur e alcohol) Once a year Sexually Active Control Partners Comments Not Currently Male Comments No Sex and Gender Information Value Date Recorded Sex Assigned at Not on file Legal Sex Female 10:38 PM CDT Gender Identity Not on file Sexual Orientation Not on file Last Filed Vital Signs Vital Sign Reading Time Taken Comments Blood Pressure 132/89 06/05/2017 8:15 AM HUMIDIFIER OPERATOR Pulse 60 06/05/2017 8:15 AM HUMIDIFIER OPERATOR Temperature 36.9 C (98.4 F) 06/05/2017 8:15 AM HUMIDIFIER OPERATOR Respiratory Rate 17 06/05/2017 8:15 AM HUMIDIFIER OPERATOR Oxygen Saturation 100% 06/05/2017 8:15 AM HUMIDIFIER OPERATOR Inhaled Oxygen Concentration - - Weight 83 kg (183 lb) 12/17/2016 9:47 AM CDT Height 162.6 cm (5' 4) 12/17/2016 9:47 AM CDT Body Mass Index 31.41 12/17/2016 9:47 AM CDT Plan of Treatment Health Maintenance Due Date Last Done Comments Hepatitis C Virus (HCV) Screening 1984 TdaP Immunization 1984 Hepatitis B Immunization (1 of 3 - 19+ 3-dose series) 02/02/2003 Human Papillomavirus (HPV) Immunization (1 - 3-dose SCDM series) 02/02/2011 Influenza Immunization (#1) 2025 05/19/2016 SARS-COV-2 Immunization ( season) 2025 07/27/2021, 10/05/2020 Respiratory Syncytial Virus (RSV) Immunization (Adult) (1 - 1-dose 75+ series) 02/02/2059 Discussion re Starting/Frequency of Mammograms Discontinued 06/04/2017, 12/09/2016, 11/19/2016 Mammogram Discontinued 06/04/2017, 11/19/2016 Meningococcal Immunization (ACWY) Aged Out No longer eligible based on patient's age to complete this topic Pneumococcal Immunization Combined Aged Out No longer eligible based on patient's age to complete this topic Rotavirus Immunization Aged Out No lo nger eligible based on patient's age to complete this topic Procedures Procedure Name Priority Date/Time Associated Diagnosis Comments JERRELL SCREENING BILATERAL DIGITAL W CAD Routine 06/04/2017 Encounter for screening mammogram for malignant neoplasm of breast from Last 3 Months or Most Recently Relevant to Health Maintenance Results * JERRELL SCREENING BILATERAL DIGITAL W CAD (06/04/2017) Anatomical Region Laterality Modality breast Bilateral Mammography Hawa Villarreal APRN, FOUNTAIN CLERK IMG MAMMO ORDERABLES Ana l Result from Last 3 Months or Most Recently Relevant to Health Maintenance Insurance MEDICAID [employer] Advance Directives * Full Code (Latest Code Status on File) Date Activated Date Inactivated Comments 06/06/2016 2:23 PM * Full Code Date Activated Date Inactivated Comments 05/27/2016 11:26 AM 05/29/2016 7:51 PM CPR-Full Treatment: FULL ARREST: Attempt Resuscitation/CPR wit intubation and mechanical ventilation. PRE-ARREST: Use entire range of life support measures to stabilize the patient. * Full Code Date Activated Date Inactivated Comments 05/18/2016 12:23 PM 05/19/2016 4:31 PM CPR-Full Treatment: FULL ARREST: Attempt Resuscitation/CPR wit intubation and mechanical ventilation. PRE-ARREST: Use entire range of life support measures to stabilize the patient. Care Teams Time Analysis Clerk Relationship Specialty Start Date End Date Danish Gibbs, [facility] [address] [place] [id number] PCP - General Physician Diesel Locomotive Firer/Fireman 05/24/15 Airam Simpson PAC [address] [place] [address] Physician Diesel Locomotive Firer/Fireman Physician Diesel Locomotive Firer/Fireman 05/24/15 Bhargav Jefferson MD [address] [place] [address] General Surgery 05/22/16 Manish Hassan DO [address] [place] [address] Undersea & Hyperbaric Medicine 06/04/16
--- OUTSIDE RECORDS SUMMARY | 2025-04-20 10:16 | XMS_ITS | Clinical Summary ---
Author Organization [facility] Address [address] [place] [address] Phone Care Team Providers Care Associate Professor Physician Name Role Phone LIN PATEL MD Unavailable Unavailable Reason for Visit and Chief Complaint [Patient Encounter] Problems Includes: Problems addressed during this encounter and other active Problems All Visits Onset Date Resolved Date Provider Condition S tatus History of Tubal Ligation 02/07/2015 DAVID GOLDEN RN [facility] Active Last Documented On 02/07/2015 1:11PM ; [facility] Note: Unchanged Essential Hypertension 02/07/2015 DAVID GOLDEN RN [facility] Active Last Documented On 02/07/2015 1:11PM ; [facility] Note: Unchanged Dysfunctional Uterine Bleeding 02/07/2015 DAVID GOLDEN RN [facility] Active Last Documented On 02/07/2015 1:11PM ; [facility] Note: Unchanged Plan of Treatment No [...] On 8 11:25AM By QUAN COYLE ; [facility] BuPROPion HCl ER (XL) 150MG Oral Tablet Extended Release 24 Hour 03/20/2018 Provider: Diagnosis: 1 tab BID Last Documented On 8 11:25AM By QUAN COYLE ; [facility] CloNIDine HCl 0.2MG Oral Tablet 03/20/2018 Provider: Diagnosis: 1 tab daily Last Documented On 8 11:25AM By QUAN COYLE ; [facility] Citalopram Hydrobromide 20MG Oral Tablet 03/20/2018 Provider: Diagnosis: 1 tab daily Last Documented On 8 11:25AM By QUAN COYLE ; [facility] gabapentin 300mg Oral Capsule 03/20/2018 Provider: Diagnosis: 2 pills TID Last Documented On 8 11:23AM By QUAN COYLE ; [facility] Diclofenac Sodium 75MG Oral Tablet Delayed Release Provider: Diagnosis: 1 pill BID Last Documented On 8 11:23AM By QUAN COYLE ; [facility] Lisinopril 20MG Oral Tablet 03/20/2018 Provider: Diagnosis: 1 tab once daily Last Documented On 8 11:24AM By QUAN COYLE ; [facility] TiZANidine HCl 4MG Oral Tablet 03/20/2018 Provider: Diagnosis: 1 tab TID prn Last Documented On 8 11:24AM By QUAN COYLE ; [facility] Nadolol 40MG Oral Tablet 03/20/2018 Provider: Diagnosis: 1 tab once daily Last Documented On 8 11:24AM By QUAN COYLE ; [facility] ALPRAZolam 0.5MG Oral Tablet 03/20/2018 Provider: Diagnosis: 1 tab TID Last Documented On 8 11:24AM By QUAN COYLE ; [facility] clonazePAM 1 MG OR TABS 08/10/2014 Provider: Diagnosis: Last Documented On 08/19/2014 9:18AM By KARI COYLE ; [facility] TraMADol HCl 50 MG Tablet 05/24/2014 Provider: Diagnosis: Last Documented On 11/10/2014 8:26AM By KARI COYLE ; [facility] Medications Administered Includes: Administered Medications [...] Active Last Documented On 8 11:22AM ; [facility] Encounters Encounter Provider Location Date Check-In Time Check- Out Time Diagnosis [Patient Encounter] BREA MG MD [facility] MECHANIC FOREMAN 5 3:54PM 11:59PM Insurance Includes: Active Insurance Policies Plan Name Member ID Group # Subscriber Relationship Effect demetra Dates - [facility] [id number] JOSE Yoon Clinical Notes Includes: Clinical Notes from this encounter No Clinical Notes Recorded
--- OUTSIDE RECORDS SUMMARY | 2025-04-20 10:17 | XMS_ITS | Clinical Summary ---
Author Organization [facility] Address [address] [place] [address] Phone Care Team Providers Care Box Maker Wood Name Role Phone LIN PATEL MD Unavailable Unavailable Reason for Visit and Chief Complaint NO SHOW Problems Includes: Problems addressed during this encounter and other active Problems All Visits Onset Date Resolved Date Provider Condition S tatus History of Tubal Ligation 02/07/2015 DAVID GOLDEN RN [facility] Active Last Documented On 02/07/2015 1:11PM ; [facility] Note: Unchanged Essential Hypertension 02/07/2015 DAVID GOLDEN RN [facility] Active Last Documented On 02/07/2015 1:11PM ; [facility] Note: Unchanged Dysfunctional Uterine Bleeding 02/07/2015 DAVID GOLDEN RN [facility] Active Last Documented On 02/07/2015 1:11PM ; [facility] Note: Unchanged Plan of Treatment No Plan [...] On 8 11:25AM By QUAN COYLE ; [facility] BuPROPion HCl ER (XL) 150MG Oral Tablet Extended Release 24 Hour 03/20/2018 Provider: Diagnosis: 1 tab BID Last Documented On 8 11:25AM By QUAN COYLE ; [facility] CloNIDine HCl 0.2MG Oral Tablet 03/20/2018 Provider: Diagnosis: 1 tab daily Last Documented On 8 11:25AM By QUAN COYLE ; [facility] Citalopram Hydrobromide 20MG Oral Tablet 03/20/2018 Provider: Diagnosis: 1 tab daily Last Documented On 8 11:25AM By QUAN COYLE ; [facility] gabapentin 300mg Oral Capsule 03/20/2018 Provider: Diagnosis: 2 pills TID Last Documented On 8 11:23AM By QUAN COYLE ; [facility] Diclofenac Sodium 75MG Oral Tablet Delayed Release Provider: Diagnosis: 1 pill BID Last Documented On 8 11:23AM By QUAN COYLE ; [facility] Lisinopril 20MG Oral Tablet 03/20/2018 Provider: Diagnosis: 1 tab once daily Last Documented On 8 11:24AM By QUAN COYLE ; [facility] TiZANidine HCl 4MG Oral Tablet 03/20/2018 Provider: Diagnosis: 1 tab TID prn Last Documented On 8 11:24AM By QUAN COYLE ; [facility] Nadolol 40MG Oral Tablet 03/20/2018 Provider: Diagnosis: 1 tab once daily Last Documented On 8 11:24AM By QUAN COYLE ; [facility] ALPRAZolam 0.5MG Oral Tablet 03/20/2018 Provider: Diagnosis: 1 tab TID Last Documented On 8 11:24AM By QUAN COYLE ; [facility] clonazePAM 1 MG OR TABS 08/10/2014 Provider: Diagnosis: Last Documented On 08/19/2014 9:18AM By KARI COYLE ; [facility] TraMADol HCl 50 MG Tablet 05/24/2014 Provider: Diagnosis: Last Documented On 11/10/2014 8:26AM By KARI COYLE ; [facility] Medications Administered Includes: Administered Medications [...] Active Last Documented On 8 11:22AM ; [facility] Insurance Includes: Active Insurance Policies Plan Name Member ID Group # Subscriber Relationship Effect demetra Dates 1 - [facility] [id number] JOSE FERRELL Self Clinical Notes Includes: Clinical Notes from this encounter No Clinical Notes Recorded
--- OUTSIDE RECORDS SUMMARY | 2025-04-20 10:17 | XMS_ITS ---
Author Organization [facility] Address [address] [place] [address] Phone Care Team Providers Care Entomology Professor Name Role Phone LIN PATEL MD Unavailable Unavailable Problems Includes: Active, inactive, and resolved Problems All Visits Onset Date Resolved Date Provider Condition S tatus History of Tubal Ligation 02/07/2015 DAVID GOLDEN RN [facility] Active Last Documented On 02/07/2015 1:11PM ; [facility] Note: Unchanged Essential Hypertension 02/07/2015 DAVID GOLDEN RN [facility] Active Last Documented On 02/07/2015 1:11PM ; [facility] Note: Unchanged Dysfunctional Uterine Bleeding 02/07/2015 DAVID GOLDEN RN [facility] Active Last Documented On 02/07/2015 1:11PM ; [facility] Note: Unchanged Plan of Treatment Findings Encounter Date Ordered Clinical summary pro vided to patient CONSULTATION with DAVID GOLDEN RN [facility] 04/20/2015 Last Documented On 5 2:39PM ; [facility] Ordered Clinical summary pro vided to patient PROBLEM VISIT with DAVID GOLDEN RN [facility] 02/07/2015 Last Documented On 5 1:12PM ; [facility] Instructions to patient Instructions for patient : B reast Self Exam discussed Last Documented On 5 8:36AM ; [facility] Education and Decision Aids were provided during visit for: Patient education :DISCUSSED NEED FOR SEROLOGY AND U/S AFTER PT IS EVALUATED IN [facility] TODAY FOR HTN. PT STATES B/P FLUCTUATES SO MUCH THAT PCP WON'T TX. CV PRECAUTIONS GIVEN AND PT AGREES TO GO TO ER FOR EVAL. AND MGT OF HTN. PT WILL BE CONTACTED AFTER SEROLOGY AND U/S REVIEW FOR PLAN OF CARE. PT HAS BEEN INSTRUCTED TO DC COCP IMMEDIATELY AND ALL QUESTIONS ANSWERED. REPORT CALLED TO TRIAGE NURSE KUNAL AT [facility] Last Documented On 5 1:10PM ; [facility] Patient counseling : Use of oral contraceptives discussed in detail including rare occurrence of heart attack, stroke, and leg clots. Patient understands that smoking increases the risk of serious side effects with any steroid-based contraceptive method Last Documented On 5 8:47AM ; [facility] STD screening offered and de clined Last Documented On 5 8:36AM ; [facility] Patient counseling : Use of oral contraceptives discussed in detail including rare occurrence of heart attack, stroke, and leg clots. 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 03/08/2015 Last Documented On 5 4:39PM ; [facility] Dysfunctional uterine bleeding PROBLEM VISIT wit h DAVID GOLDEN RN [facility] 02/07/2015 Last Documented On 5 1:12PM ; [facility] Essential hypertension PROBLEM VISIT with DAVID GOLDEN RN [facility] 02/07/2015 Last Documented On 5 1:12PM ; [facility] Routine pelvic exam AUTOMATION TENDER EXAM with BREA MG MD 11/10/2014 Last Documented On 5 8:48AM ; [facility] POST OP VISIT POST OP VISIT with BREA MG MD 09/27/2014 Last Documented On 5 2:55PM ; [facility] Female pelvic pain NEW AUTOMATION TENDER EXAM with BREA OLIVERA MD 08/19/2014 Last Documented On 5 10:07AM ; [facility] Ovarian cyst NEW AUTOMATION TENDER EXAM with BREA MG MD 08/19/2014 Last Documented On 5 10:07AM ; [facility] Instructions Includes: Instructions for all patient encounters Instructions to patient Instructions for patient : B reast Self Exam discussed Last Documented On 5 8:36AM ; [facility] Education and Decision Aids were provided during visit for: Patient education :DISCUSSED NEED FOR SEROLOGY AND U/S AFTER PT IS EVALUATED IN [facility] ER TODAY FOR HTN. PT STATES B/P FLUCTUATES SO MUCH THAT PCP WON'T TX. CV PRECAUTIONS GIVEN AND PT AGREES TO GO TO ER FOR EVAL. AND MGT OF HTN. PT WILL BE CONTACTED AFTER SEROLOGY AND U/S REVIEW FOR PLAN OF CARE. PT HAS BEEN INSTRUCTED TO DC COCP IMMEDIATELY AND ALL QUESTIONS ANSWERED. REPORT CALLED TO TRIAGE NURSE KUNAL AT [facility] Last Documented On 5 1:10PM ; [facility] Patient counseling : Use of oral contraceptives discussed in detail including rare occurrence of heart attack, stroke, and leg clots. Patient understands that smoking increases the risk of serious side effects with any steroid-based contraceptive method Last Documented On 5 8:47AM ; [facility] STD screening offered and de clined Last Documented On 5 8:36AM ; [facility] Patient counseling : Use of oral contraceptives discussed in detail including rare occurrence of heart attack, stroke, and leg clots. Patient understands that smoking increases the risk of serious side effects with any steroid-based contraceptive method Last Documented On 5 2:55PM ; [facility] Medical Equipment - Implanted Devices Includes: Current and historical Devices No Medical Equipment Recorded Medications Includes: Current and historical Medications Current Medications (continue as prescribed) Reglan 10MG Oral Tablet 03/20/2018 Provider: Diagnosis: 1 tab QID prn Last Documented On 8 11:25AM By QUAN COYLE ; [facility] BuPROPion HCl ER (XL) 150MG Oral Tablet Extended Release 24 Hour 03/20/2018 Provider: Diagnosis: 1 tab BID Last Documented On 8 11:25AM By QUAN COYLE ; [facility] CloNIDine HCl 0.2MG Oral Tablet 03/20/2018 Provider: Diagnosis: 1 tab daily Last Documented On 8 11:25AM By QUAN COYLE ; [facility] Citalopram Hydrobromide 20MG Oral Tablet 03/20/2018 Provider: Diagnosis: 1 tab daily Last Documented On 8 11:25AM By QUAN COYLE ; [facility] gabapentin 300mg Oral Capsule 03/20/2018 Provider: Diagnosis: 2 pills TID Last Documented On 8 11:23AM By QUAN COYLE ; [facility] Diclofenac Sodium 75MG Oral Tablet Delayed Release Provider: Diagnosis: 1 pill BID Last Documented On 8 11:23AM By QUAN COYLE ; [facility] Lisinopril 20MG Oral Tablet 03/20/2018 Provider: Diagnosis: 1 tab once daily Last Documented On 8 11:24AM By QUAN COYLE ; [facility] TiZANidine HCl 4MG Oral Tablet 03/20/2018 Provider: Diagnosis: 1 tab TID prn Last Documented On 8 11:24AM By QUAN COYLE ; [facility] Nadolol 40MG Oral Tablet 03/20/2018 Provider: Diagnosis: 1 tab once daily Last Documented On 8 11:24AM By QUAN COYLE ; [facility] ALPRAZolam 0.5MG Oral Tablet 03/20/2018 Provider: Diagnosis: 1 tab TID Last Documented On 8 11:24AM By QUAN COYLE ; [facility] clonazePAM 1 MG OR TABS 08/10/2014 Provider: Diagnosis: Last Documented On 08/19/2014 9:18AM By KARI COYLE ; [facility] TraMADol HCl 50 MG Tablet 05/24/2014 Provider: Diagnosis: Last Documented On 11/10/2014 8:26AM By KARI COYLE ; [facility] Past Medications on file CloNIDine HCl 0.1 MG Tablet 04/20/2015 - 03/20/2018 Pr ovider: Diagnosis: Last Documented On 8 11:23AM By QUAN COYLE ; [facility] Aviane 0.1-20 MG-MCG Tablet 11/10/2014 - 02/07/2015 Pr ovider: BREA MG MD Diagnosis: One tablet daily Last Documented On 5 12:17PM By DAVID PALM ; [facility] Gabapentin 600 MG Tablet 10/19/2014 - 03/20/2018 Provi aashish: Diagnosis: Last Documented On 8 11:23AM By QUAN COYLE ; [facility] Bactrim DS 800-160 MG Tablet 10/03/2014 - 11/10/2014 P rovider: Diagnosis: Last Documented On 11/10/2014 8:25AM By KARI COYLE ; [facility] Aviane 0.1-20 MG-MCG Tablet 09/27/2014 - 11/10/2014 Pr ovider: BREA MG MD Diagnosis: One tablet daily Last Documented On 11/10/2014 8:47AM By BREA MG MD ; [facility] Clarinex-D 12 Hour 2.5-120 M G Tablet, extended-release 12 hour 09/27/2014 - 11/10/2014 Provider: Diagnosis: Last Documented On 11/10/2014 8:25AM By KARI COYLE ; [facility] Hydrocodone-Acetaminophen 5- 325 MG Tablet 09/22/2014 - 09/29/2014 Provider: BREA MG MD Diagnosis: 1 every 4 - 6 hours as needed Last Documented On 09/22/2014 11:46AM By BREA MG MD ; [facility] HYDROcodone-Acetaminophen 5- 325 MG OR TABS 09/01/2014 - 09/04/2014 Provider: BREA MG MD Diagnosis: Last Documented On 09/01/2014 5:01PM By BREA MG MD ; [facility] Amoxicillin 250 MG OR CAPS 08/19/2014 - 09/27/2014 Pro vider: Diagnosis: Last Documented On 09/27/2014 2:38PM By KARI COYLE ; [facility] Sudafed PE Severe Cold 12.5-5-325 MG OR TABS 5 - 11/10/2014 Provider: Diagnosis: Last Documented On 11/10/2014 8:25AM By KARI COYLE ; [facility] Gabapentin 600 MG OR TABS 08/02/2014 - 09/27/2014 Prov ider: Diagnosis: Last Documented On 09/27/2014 2:39PM By KARI COYLE ; [facility] Medications Administered Includes: Administered Medications in patient's chart No Administered Medications Recorded Results Includes: Results from 04/20/2024 through 04/20/2025 No Results Recorded For Specified Dates History of Present Illness History of Present Illness not supported for this document type No History of Present Illness Recorded Social History Description Last Updated Currently 03/20/2018 Last Documented On 8 9:10AM ; [facility] No consumption of alcohol 03/20/2018 Last Documented On 8 9:10AM ; [facility] No tobacco use 03/20/2018 Last Documented On 8 9:10AM ; [facility] Not using drugs 03/20/2018 Last Documented On 8 9:10AM ; [facility] In monogamous relationship 04/20/2015 Last Documented On 5 2:39PM ; [facility] Sexually active 04/20/2015 Last Documented On 5 2:39PM ; [facility] Smoking status : Former smoker 5 Last Documented On 5 2:39PM ; [facility] Procedures and Surgical History Surgical History Last Updated History of tubal ligation 09/27/2014 Last Documented On 5 2:55PM ; [facility] Surgical / procedural history knee surge ry -2000 ~breast reduction -200608/19/2014 Last Documented On 5 10:07AM ; [facility] Medical History Includes: Medical History in patient's chart Description Last Updated 1 miscarriage(s) 03/20/2018 Last Documented On 8 9:10AM ; [facility] Currently wearing eyeglasses 03/20/2018 Last Documented On 8 9:10AM ; [facility] Previously 3 time(s) 03/20/2018 Last Documented On 8 9:10AM ; [facility] History of arthritis 03/20/2018 Last Documented On 8 9:10AM ; [facility] History of hypertension 03/20/2018 Last Documented On 8 9:10AM ; [facility] Reported recurrent infections 03/20/2018 Last Documented On 8 9:10AM ; [facility] Status post tubal ligation 02/07/2015 Last Documented On 5 1:12PM ; [facility] L OOPHORECTOMY/LYSIS OF ADHESIONS 09/11 O VARIAN CYSTS 02/07/2015 Last Documented On 5 1:12PM ; [facility] Contraception: pt says she hasn't been t aking correctly 02/07/2015 Last Documented On 5 1:12PM ; [facility] Para 2 twins 11/10/2014 Last Documented On 5 8:48AM ; [facility] LMP: 10/23/2014 11/10/2014 Last Documented On 5 8:48AM ; [facility] Last pap smear date 201211/10/2014 Last Documented On 5 8:48AM ; [facility] Result: normal 11/10/2014 Last Documented On 5 8:48AM ; [facility] Aborta 2 11/10/2014 Last Documented On 5 8:48AM ; [facility] 4 11/10/2014 Last Documented On 5 8:48AM ; [facility] Family History Includes: Family History in patient's chart Description Last Updated Family history of cancer 03/20/2018 Last Documented On 8 9:10AM ; [facility] Family history of heart disease 03/20/20 18 Last Documented On 8 9:10AM ; [facility] Maternal history of malignant female amee ast neoplasm 11/10/2014 Last Documented On 5 8:48AM ; [facility] Family history of diabetes mellitus dad 08/19/2014 Last Documented On 5 10:07AM ; [facility] Family history of malignant female breas t neoplasm maternal grandma 08/19/2014 Last Documented On 5 10:07AM ; [facility] Review of Systems Review of Systems not supported for this document type No Review of Systems Recorded Mental Status No Mental Status Recorded Functional Status No Functional Status Recorded Physical Exam Physical Exam not supported for this document type No Physical Exam Recorded Allergies Includes: Active, inactive, and resolved Allergies Substance Type Reaction Onset Date Resolved Date Statu s Morphine Sulfate Allergy Nausea, Vomitin g, Diarrhea / Diarrheal disorder 08/19/2014 Active Last Documented On 8 11:22AM ; [facility] Insurance Includes: Active Insurance Policies Plan Name Member ID Group # Subscriber Relationship Effect demetra Dates 1 - [facility] [id number] JOSE Yoon Clinical Notes Includes: Signed Clinical Notes starting from 07/19/2022 No Clinical Notes Recorded
--- OUTSIDE RECORDS SUMMARY | 2025-04-20 10:17 | XMS_ITS | Clinical Summary ---
Author Organization [facility] Address [address] [place] [address] Phone Care Team Providers Care Harness Tier Name Role Phone LIN PATEL MD Unavailable Unavailable Reason for Visit and Chief Complaint NO SHOW Problems Includes: Problems addressed during this encounter and other active Problems All Visits Onset Date Resolved Date Provider Condition S tatus History of Tubal Ligation 02/07/2015 DAVID GOLDEN RN [facility] Active Last Documented On 02/07/2015 1:11PM ; [facility] Note: Unchanged Essential Hypertension 02/07/2015 DAVID GOLDEN RN [facility] Active Last Documented On 02/07/2015 1:11PM ; [facility] Note: Unchanged Dysfunctional Uterine Bleeding 02/07/2015 DAVID GOLDEN RN [facility] Active Last Documented On 02/07/2015 1:11PM ; [facility] Note: Unchanged Plan of Treatment No Plan [...] On 8 11:25AM By QUAN COYLE ; [facility] BuPROPion HCl ER (XL) 150MG Oral Tablet Extended Release 24 Hour 03/20/2018 Provider: Diagnosis: 1 tab BID Last Documented On 8 11:25AM By QUAN COYLE ; [facility] CloNIDine HCl 0.2MG Oral Tablet 03/20/2018 Provider: Diagnosis: 1 tab daily Last Documented On 8 11:25AM By QUAN COYLE ; [facility] Citalopram Hydrobromide 20MG Oral Tablet 03/20/2018 Provider: Diagnosis: 1 tab daily Last Documented On 8 11:25AM By QUAN COYLE ; [facility] gabapentin 300mg Oral Capsule 03/20/2018 Provider: Diagnosis: 2 pills TID Last Documented On 8 11:23AM By QUAN COYLE ; [facility] Diclofenac Sodium 75MG Oral Tablet Delayed Release Provider: Diagnosis: 1 pill BID Last Documented On 8 11:23AM By QUAN COYLE ; [facility] Lisinopril 20MG Oral Tablet 03/20/2018 Provider: Diagnosis: 1 tab once daily Last Documented On 8 11:24AM By QUAN COYLE ; [facility] TiZANidine HCl 4MG Oral Tablet 03/20/2018 Provider: Diagnosis: 1 tab TID prn Last Documented On 8 11:24AM By QUAN COYLE ; [facility] Nadolol 40MG Oral Tablet 03/20/2018 Provider: Diagnosis: 1 tab once daily Last Documented On 8 11:24AM By QUAN COYLE ; [facility] ALPRAZolam 0.5MG Oral Tablet 03/20/2018 Provider: Diagnosis: 1 tab TID Last Documented On 8 11:24AM By QUAN COYLE ; [facility] clonazePAM 1 MG OR TABS 08/10/2014 Provider: Diagnosis: Last Documented On 08/19/2014 9:18AM By KARI COYLE ; [facility] TraMADol HCl 50 MG Tablet 05/24/2014 Provider: Diagnosis: Last Documented On 11/10/2014 8:26AM By KARI COYLE ; [facility] Medications Administered Includes: Administered [...] Active Last Documented On 8 11:22AM ; [facility] Insurance Includes: Active Insurance Policies Plan Name Member ID Group # Subscriber Relationship Effect demetra Dates 1 - [facility] [id number] JOSE FERRELL Self Clinical Notes Includes: Clinical Notes from this encounter No Clinical Notes Recorded
--- OUTSIDE RECORDS SUMMARY | 2025-04-20 10:17 | XMS_ITS | Clinical Summary ---
Author Organization [facility] Address [address] [place] [address] Phone Care Team Providers Care Control System Manager Name Role Phone LIN PATEL MD Unavailable Unavailable Reason for Visit and Chief Complaint referred by Danish Gibbs - The Chief Complaint is: Low back pain, L hip. Physical therapy- doesn't help. Pain management- [place]'s injections did not help Problems Includes: Problems addressed during this encounter and other active Problems Current Visit Onset Date Resolved Date Provider Conditio n Status History of Tubal Ligation 02/07/2015 DAVID GOLDEN RN [facility] Active Last Documented On 02/07/2015 1:11PM ; [facility] Note: Unchanged Past Visits Onset Date Resolved Date Provider Condition Status Essential Hypertension 02/07/2015 DAVID GOLDEN RN [facility] Active Last Documented On 02/07/2015 1:11PM ; [facility] Note: Unchanged Dysfunctional Uterine Bleeding 02/07/2015 DAVID GOLDEN RN [facility] Active Last Documented On 02/07/2015 1:11PM ; [facility] Note: Unchanged Plan of Treatment Pending Tests Order Diagnosis Results Due Ordering Roberto myers Lab PAIN MGMT, TRAMADOL, QN,W/medMATCH,U 03/27/18 LEILA L RYAN ANP - Last Documented On 8 1:59PM ; [facility] Lab PAIN MANAGEMENT, PROFILE 6 WITH CONFIRMATION 03/27/18 LEILA L RYAN ANP- Last Documented On 8 1:59PM ; [facility] In office procedures - *Clia Waived Labs Urine Drug Screen Chronic pain syndrome 04/03/18 LEILA L RYAN ANP- Last Documented On 8 9:10AM ; [facility] Assessments Includes: Assessments from this encounter Findings - Localized lumbar osteoarthritis [M47.816 - Spondylosis without myelopathy or radiculopathy, lumbar region] - Last Documented On 04/06/2018 9:10AM ; [facility] - Lumbosacral spinal stenosis [M48.07 - Spinal stenosis, lumbosacral region] - Last Documented On 04/06/2018 9:10AM ; [facility] - Lumbar radiculopathy [M54.16 - Radiculopathy, lumbar region] - Last Documented On 04/06/2018 9:10AM ; [facility] - Chronic pain syndrome [G89.4 - Chronic pain syndrome] - Last Documented On 04/06/2018 9:10AM ; [facility] - vermin exterminator use of opiate analgesic [Z79.891 - correction (current) use of opiate analgesic] - Last Documented On 04/06/2018 9:10AM ; [facility] Medical Equipment - Implanted Devices Includes: Current Devices No Medical Equipment Recorded Medications Includes: Medications discussed during this encounter and other current Medications Discontinued / Stopped on this date on 04/20/2015 CloNIDine HCl 0.1 MG Tablet Provider: Diagnosis: Last Documented On 8 11:23AM By QUAN COYLE ; [facility] Gabapentin 600 MG Tablet Provider: Diagnosis: Last Documented On 8 11:23AM By QUAN COYLE ; [facility] Current Medications (continue as prescribed) Reglan 10MG Oral Tablet 03/20/2018 Provider: Diagnosis: 1 tab QID prn Last Documented On 8 11:25AM By QUAN COYLE ; [facility] BuPROPion HCl ER (XL) 150MG Oral Tablet Extended Release 24 Hour 03/20/2018 Provider: Diagnosis: 1 tab BID Last Documented On 8 11:25AM By QUAN COYLE ; [facility] CloNIDine HCl 0.2MG Oral Tablet 03/20/2018 Provider: Diagnosis: 1 tab daily Last Documented On 8 11:25AM By QUAN COYLE ; [facility] Citalopram Hydrobromide 20MG Oral Tablet 03/20/2018 Provider: Diagnosis: 1 tab daily Last Documented On 8 11:25AM By QUAN COYLE ; [facility] gabapentin 300mg Oral Capsule 03/20/2018 Provider: Diagnosis: 2 pills TID Last Documented On 8 11:23AM By QUAN COYLE ; [facility] Diclofenac Sodium 75MG Oral Tablet Delayed Release Provider: Diagnosis: 1 pill BID Last Documented On 8 11:23AM By QUAN COYLE ; [facility] Lisinopril 20MG Oral Tablet 03/20/2018 Provider: Diagnosis: 1 tab once daily Last Documented On 8 11:24AM By QUAN COYLE ; [facility] TiZANidine HCl 4MG Oral Tablet 03/20/2018 Provider: Diagnosis: 1 tab TID prn Last Documented On 8 11:24AM By QUAN COYLE ; [facility] Nadolol 40MG Oral Tablet 03/20/2018 Provider: Diagnosis: 1 tab once daily Last Documented On 8 11:24AM By QUAN COYLE ; [facility] ALPRAZolam 0.5MG Oral Tablet 03/20/2018 Provider: Diagnosis: 1 tab TID Last Documented On 8 11:24AM By QUAN COYLE ; [facility] clonazePAM 1 MG OR TABS 08/10/2014 Provider: Diagnosis: Last Documented On 08/19/2014 9:18AM By KARI COYLE ; [facility] TraMADol HCl 50 MG Tablet 05/24/2014 Provider: Diagnosis: Last Documented On 11/10/2014 8:26AM By KARI COYLE ; [facility] Past Medications on file Hydrocodone-Acetaminophen 5- 325 MG Tablet 09/22/2014 - 09/29/2014 Provider: BREA MG MD Diagnosis: 1 every 4 - 6 hours as needed Last Documented On 09/22/2014 11:46AM By BREA MG MD ; [facility] HYDROcodone-Acetaminophen 5- 325 MG OR TABS 09/01/2014 - 09/04/2014 Provider: BREA MG MD Diagnosis: Last Documented On 09/01/2014 5:01PM By BREA MG MD ; [facility] Medications Administered Includes: Administered Medications from this encounter No Administered Medications Recorded Vital Signs Includes: Vital Signs from this encounter Vital Name 03/20/2018 11:26A Blood Pressure Sitting L 136/100 BP Cuff Size Large Pulse Rate-Sitting (bpm) 70 Pulse Rhythm Regular Respiration Rate (breaths/min) 16 Height (in) 64 Weight (lb) 180 Body Mass Index (kg/m2) 30.9 Body Surface Area (m2) 1.9 Pain Level 6 Last Documented: On 03/20/2018 11:27A M ; [facility] Results Includes: Results discussed during this encounter Drugs of abuse screen [facility] Ordered by LEILA RICH on Collected: Reported: 03/20/2018 14:38 Last Documented On 8 2:38PM ; [facility] Reviewed on 03/20/2018; All test results are final unless otherwise noted. Internal QC Acceptable neg (neg) N (Normal) Last Documented On 8 2:38PM ; [facility] Lot # & Exp. Date [id number] 06/17 (neg) N (Normal) Last Documented On 8 2:38PM ; [facility] Amphetamines neg (NEG) N (Normal) Last Documented On 8 2:38PM ; [facility] Barbiturates neg (neg) N (Normal) Last Documented On 8 2:38PM ; [facility] Benzodiazepines pos (neg) A (Abnormal) Last Documented On 8 2:38PM ; [facility] Cocaine neg (neg) N (Normal) Last Documented On 8 2:38PM ; [facility] Ecstasy neg (Neg) N (Normal) Last Documented On 8 2:38PM ; [facility] Methamphetamines neg (neg) N (Normal) Last Documented On 8 2:38PM ; [facility] Methadone neg (Neg) N (Normal) Last Documented On 8 2:38PM ; [facility] Morphine neg (Neg) N (Normal) Last Documented On 8 2:38PM ; [facility] Oxycodone neg (Neg) N (Normal) Last Documented On 8 2:38PM ; [facility] Phencyclidine neg (NEG) N (Normal) Last Documented On 8 2:38PM ; [facility] TCA/Tricyclic Antidepressants neg (neg) N (Normal) Last Documented On 8 2:38PM ; [facility] Cannabis neg (neg) N (Normal) Last Documented On 8 2:38PM ; [facility] History of Present Illness Includes: History of Present Illness from this encounter HPI JOSE FERRELL is a 33 year old female. Patient is referred for evaluation and treatment. She describes chronic low back pain for 6 years with pain radiating to the left lateral thigh. There is intermittent numbness and tingling. She finished therapy 6 weeks ago and is scheduled for surgery in late March. Injections [address] with no benefit. SI injection in August was not helpful. She does believe RF ablation done about 2 years ago provided a degree of relief, but symptoms were different at the time. Gabapentin 600mg TID, Tizanidine qhs, Diclofenac BID and Tramadol 100mg TID helps some. Lyrica caused swelling in past. We discussed increasing Gabapentin to address leg symptoms. - Medication list reviewed - Prescription Drug Monitoring Program website checked. - Last dose of medication? this morning Social History Description Last Updated Currently 03/20/2018 Last Documented On 8 9:10AM ; [facility] No consumption of alcohol 03/20/2018 Last Documented On 8 9:10AM ; [facility] No tobacco use 03/20/2018 Last Documented On 8 9:10AM ; [facility] Not using drugs 03/20/2018 Last Documented On 8 9:10AM ; [facility] In monogamous relationship 04/20/2015 Last Documented On 8 11:20AM ; [facility] Sexually active 04/20/2015 Last Documented On 8 11:20AM ; [facility] Smoking status : Former smoker 5 Last Documented On 8 11:20AM ; [facility] Procedures and Surgical History Includes: Procedures from this encounter Procedures Code Diagnosis Performing Provider Service L ocation Service Date education and instructions provided Last Documented On 8 9:02AM ; [facility] Surgical History Last Updated History of tubal ligation 09/27/2014 Last Documented On 8 11:20AM ; [facility] Surgical / procedural history knee surge ry 7-2000 ~breast reduction -200608/19/2014 Last Documented On 8 11:20AM ; [facility] Medical History Includes: Medical History addressed during this encounter Description Last Updated 1 miscarriage(s) 03/20/2018 Last Documented On 8 9:10AM ; [facility] Currently wearing eyeglasses 03/20/2018 Last Documented On 8 9:10AM ; [facility] Previously 3 time(s) 03/20/2018 Last Documented On 8 9:10AM ; [facility] History of arthritis 03/20/2018 Last Documented On 8 9:10AM ; [facility] History of hypertension 03/20/2018 Last Documented On 8 9:10AM ; [facility] Reported recurrent infections 03/20/2018 Last Documented On 8 9:10AM ; [facility] Status post tubal ligation 02/07/2015 Last Documented On 8 11:20AM ; [facility] L OOPHORECTOMY/LYSIS OF ADHESIONS 09/11 O VARIAN CYSTS 02/07/2015 Last Documented On 8 11:20AM ; [facility] Contraception: pt says she hasn't been t aking correctly 02/07/2015 Last Documented On 8 11:20AM ; [facility] Para 2 twins 11/10/2014 Last Documented On 8 11:20AM ; [facility] LMP: 10/23/2014 11/10/2014 Last Documented On 8 11:20AM ; [facility] Last pap smear date 201211/10/2014 Last Documented On 8 11:20AM ; [facility] Result: normal 11/10/2014 Last Documented On 8 11:20AM ; [facility] Aborta 2 11/10/2014 Last Documented On 8 11:20AM ; [facility] 4 11/10/2014 Last Documented On 8 11:20AM ; [facility] Family History Includes: Family History addressed during this encounter Description Last Updated Family history of cancer 03/20/2018 Last Documented On 8 9:10AM ; [facility] Family history of heart disease 03/20/20 Last Documented On 8 9:10AM ; [facility] Maternal history of malignant female amee ast neoplasm 11/10/2014 Last Documented On 8 11:20AM ; [facility] Family history of diabetes mellitus dad 08/19/2014 Last Documented On 8 11:20AM ; [facility] Family history of malignant female breas t neoplasm maternal grandma 08/19/2014 Last Documented On 8 11:20AM ; [facility] Review of Systems Includes: Review of Systems from this encounter Systemic: General overall feeling and feeling tired (fatigue). No fever, no chills, and no recent weight change. Head: No headache. Eyes: Blurry vision. Otolaryngeal: Hearing loss. Breasts: Breast lump and pain in breast. Cardiovascular: Chest pain or discomfort. No chest pain or discomfort. Palpitations and cold hands or feet. Pulmonary: No dyspnea. Shortness of breath and expressed as feeling short of breath. Gastrointestinal: Nausea. No nausea and no vomiting. Abdominal pain, bowel movement frequency has recently changed, and constipation. Genitourinary: No dysuria. Endocrine: Temperature intolerance and muscle weakness. Hematologic: A tendency for easy bruising. No tendency for easy bruising. Musculoskeletal: Lower back pain, muscle aches, pain localized to one or more joints, and joint swelling localized to one or more joints. Neurological: Dizziness. No dizziness and no vertigo. Memory lapses or loss. No motor disturbances and no sensory disturbances. Numbness. Psychological: Feeling nervous. No anxiety and no depression. Insomnia. No sleep apnea. Skin: Dry skin, pruritus which is generalized, change in skin color, and skin lesion: No rash. A skin wound is slow to heal. Mental Status Includes: Mental Status from this encounter Description Oriented to time, place, and person Memory lapses or loss No anxiety Functional Status Includes: Functional Status from this encounter No Functional Status Recorded Physical Exam Includes: Physical Exam from this encounter Allergies Includes: Active Allergies Substance Type Reaction Onset Date Resolved Date Statu s Morphine Sulfate Allergy Nausea, Vomitin g, Diarrhea / Diarrheal disorder 08/19/2014 Active Last Documented On 8 11:22AM ; [facility] Encounters Encounter Provider Location Date Check-In Time Check-Out Time Diagnosis PAIN MANAGEMENT NEW CONSULT LEILA DAVIS ANP-[facility]MD 03/20/20 18 11:15AM 12:14PM Lumbar Radiculopathy ,Spinal Stenosis Lumbosacral,C hronic Pain Syndrome,Oste oarthritis Localized Vertebral Lumbar,Curriculum Writer Use of Opiate Analgesic Insurance Includes: Active Insurance Policies Plan Name Member ID Group # Subscriber Relationship Effect demetra Dates 1 - [facility] [id number] JOSE FERRELL Self Clinical Notes Includes: Clinical Notes from this encounter No Clinical Notes Recorded
--- OUTSIDE RECORDS SUMMARY | 2025-04-20 10:18 | XMS_ITS ---
Care Plan - [facility] [place] [facility] Created on: April 20, 2025 JOSE FERRELL : 1985 Sex: Female Author Organization [facility] [place] [facility] Address [address] [place] [address] Phone Care Team Providers Care Welt Drawer Name Role Phone JORGE OSULLIVAN, LIN Arteaga Unavailable
--- OUTSIDE RECORDS SUMMARY | 2025-04-20 10:40 | XMS_ITS | Clinical Summary ---
Author Organization [facility] Address [address] [place] [address] Phone Care Team Providers Care Lawn Care Worker Name Role Phone Danish Gibbs Primary Care Provider [phone] Airam Simpson PAC Unavailable [phone] Bhargav Jefferson MD Unavailable [phone] Manish Hassan DO Unavailable Unavailabl e [...] Comments Blood Pressure 132/89 06/05/2017 8:15 AM [facility] Pulse 60 06/05/2017 8:15 AM [facility] Temperature 36.9 C (98.4 F) 06/05/2017 8:15 AM [facility] Respiratory Rate 17 06/05/2017 8:15 AM [facility] Oxygen Saturation 100% 06/05/2017 8:15 AM [facility] Inhaled Oxygen Concentration - - Weight 83 [...] Modality breast Bilateral Mammography Hawa Villarreal APRN, ARC CUTTER IMG MAMMO ORDERABLES Ana l Result from [...] measures to stabilize the patient. Care Teams Lawn Care Worker Relationship Specialty Start Date End Date Danish Gibbs, [facility] [address] [place] [id number] PCP - General Physician Children'S Entertainer 05/24/15 Airam Simpson PAC [address] [place] [address] Physician Children'S Entertainer Physician Children'S Entertainer 05/24/15 Bhargav Jefferson MD [address] [place] [address] General Surgery 05/22/16 Manish Hassan DO [address] [place] [address] Undersea & Hyperbaric Medicine 06/04/16
--- OUTSIDE RECORDS SUMMARY | 2025-04-20 10:40 | XMS_ITS | Encounter Summary ---
Author Organization [facility] Address [address] [facility] [place] [address] Care Team Providers Care Wirer Name Role Phone Ramirez Ama Floyd FAMILY LIFE COUNSELOR-COMFORT STATION SUPERVISOR Primary Care Provider [phone] Clifton Moreno MD Unavailable Hawa Villarreal FAMILY LIFE COUNSELOR-COMFORT STATION SUPERVISOR Unavailable [phone] Rissa Mercer MD Unavailable Encounter Details Date Type Department Care Team (Late st Contact Info) Description 09/18/2023 Telephone [facility] - Allergy [address] [facility] [place] [id number] Debby Wright MD [address] [place] [address] Social History Tobacco Use Types Packs/Day Years Used Date Smoking Tobacco: Former Cigarettes 0.5 11 2 005 - 2016 Smokeless Tobacco: Never Comments:quit 3 years ago, r estarted Alcohol Use Standard Drinks/Week Comments No 0 (1 standard drink = 0.6 oz pur e alcohol) AUDIT-C Answer Date Recorded Q1: How often do you have a drink containing alc ohol? Never 09/12/2021 Average Number of Drinks Not on file 022 Q3: How often do you have si x or more drinks on one occasion? Never 09/12/2021 PHQ-2 Answer Date Recorded Patient Health Questionnaire-2 Score 4 09/10/2023 Comments No Sex and Gender Information Value Date Recorded Sex Assigned at Female 10/16/2020 9:09 AM CDT Legal Sex Female 12:38 PM ADMISSIONS EVALUATOR Gender Identity Female 10/16/2020 9:09 AM CDT Sexual Orientation Straight 10/16/2020 9: 09 AM CDT documented as of this encounter Functional Status * Is person deaf or have serious hearing difficulty? Answer Date of Assessment Author No 02/25/2023 8:56 AM CDT Cornelio Preston RN * Is person blind or have serious difficulty seeing? Answer Date of Assessment Author No 02/25/2023 8:56 AM CDT Cornelio Preston RN * Does person have serious difficulty walking/climbing stairs? Answer Date of Assessment Author No 02/25/2023 8:56 AM CDT Cornelio Preston RN * Does person have difficulty dressing/bathing? Answer Date of Assessment Author No 02/25/2023 8:56 AM [place] Cornelio Preston RN * Does person have difficulty doing errands alone? Answer Date of Assessment Author No 02/25/2023 8:56 AM Cornelio Padilla RN documented as of this encounter Mental Status * Does person have difficulty concentrating/remembering/making decisions? Answer Entry Date Author No 02/25/2023 8:56 AM Cornelio Padilla RN documented in this encounter Miscellaneous Notes * Telephone Encounter - Debby Wright MD - 09/18/2023 12:45 PM CDT Lab review [facility] work up - urinary aircraft mechanic structures studies: 24 hr n-methylhistamine, 24 hr leukotriene E4, 24 hr 2,3-dinor prostaglandin f2 alpha - need to be obtained 09/10/23 tryptase 8.2 CKIT mutation negative Debby Wright MD Allergy & Immunology Fellow documented in this encounter Plan of Treatment Upcoming Encounters Date Type Department Care Team (Late st Contact Info) Description 05/02/2025 8:00 AM ADMISSIONS EVALUATOR Office Visit [facility] - Neurosurgery [address] [facility] [place] [address] Prabhu Estevez MD [address] [facility] [address] [place] [address] documented as of this encounter Goals Goal Patient Goal Type Associated Problems Recent Progress Patient-Stated? Author Medication Management General On track( 023 9:21 AM CDT) Helen Santana, OMAR Note: Expected end date: ongoing Interventions: Take all medications as prescribed Let your doctor know right away about any changes in your medications Make sure to request a refill of your medication at least one week prior to your last dose documented as of this encounter Visit Diagnoses Not on filedocumented in this encounter Care Teams Wirer Relationship Specialty Start Date End Date Ama Ramirez, FAMILY LIFE COUNSELOR-COMFORT STATION SUPERVISOR [address] [facility] [address] [place] [address] PCP - General Internal Medicine 01/23/23 Clifton Moreno MD [address] [facility] [address] [place] [address] Melangeur Operator Urogynecology 01/31/23 Hawa Villarreal, FAMILY LIFE COUNSELOR-COMFORT STATION SUPERVISOR [address] [place] [address] [address], [address] [place] [address] Nurse Practitioner 01/31/23 Rissa Mercer MD [address] [facility] [address] [place] [address] Metallurgical Engineering Teacher Rheumatology 01/18/25 documented as of this encounter
--- OUTSIDE RECORDS SUMMARY | 2025-04-20 10:40 | XMS_ITS | Clinical Summary ---
Author Organization [facility] Address [address] [place] [address] Phone Care Team Providers Care Hot Pipe Gauger Name Role Phone LIN PATEL MD Unavailable Unavailable Reason for Visit and Chief Complaint NO SHOW Problems Includes: Problems addressed during this encounter and other active Problems All Visits Onset Date Resolved Date Provider Condition S tatus History of Tubal Ligation 02/07/2015 DAVID GOLDEN RN [facility] Active Last Documented On 02/07/2015 1:11PM ; [facility] Note: Unchanged Essential Hypertension 02/07/2015 DAVID GOLDEN RN [facility] Active Last Documented On 02/07/2015 1:11PM ; [facility] Note: Unchanged Dysfunctional Uterine Bleeding 02/07/2015 DAVID GOLDEN RN [facility] Active Last Documented On 02/07/2015 1:11PM ; [facility] Note: Unchanged Plan of Treatment No [...] On 8 11:25AM By QUAN COYLE ; [facility] BuPROPion HCl ER (XL) 150MG Oral Tablet Extended Release 24 Hour 03/20/2018 Provider: Diagnosis: 1 tab BID Last Documented On 8 11:25AM By QUAN COYLE ; [facility] CloNIDine HCl 0.2MG Oral Tablet 03/20/2018 Provider: Diagnosis: 1 tab daily Last Documented On 8 11:25AM By QUAN COYLE ; [facility] Citalopram Hydrobromide 20MG Oral Tablet 03/20/2018 Provider: Diagnosis: 1 tab daily Last Documented On 8 11:25AM By QUAN COYLE ; [facility] gabapentin 300mg Oral Capsule 03/20/2018 Provider: Diagnosis: 2 pills TID Last Documented On 8 11:23AM By QUAN COYLE ; [facility] Diclofenac Sodium 75MG Oral Tablet Delayed Release Provider: Diagnosis: 1 pill BID Last Documented On 8 11:23AM By QUAN COYLE ; [facility] Lisinopril 20MG Oral Tablet 03/20/2018 Provider: Diagnosis: 1 tab once daily Last Documented On 8 11:24AM By QUAN COYLE ; [facility] TiZANidine HCl 4MG Oral Tablet 03/20/2018 Provider: Diagnosis: 1 tab TID prn Last Documented On 8 11:24AM By QUAN COYLE ; [facility] Nadolol 40MG Oral Tablet 03/20/2018 Provider: Diagnosis: 1 tab once daily Last Documented On 8 11:24AM By QUAN COYLE ; [facility] ALPRAZolam 0.5MG Oral Tablet 03/20/2018 Provider: Diagnosis: 1 tab TID Last Documented On 8 11:24AM By QUAN COYLE ; [facility] clonazePAM 1 MG OR TABS 08/10/2014 Provider: Diagnosis: Last Documented On 08/19/2014 9:18AM By KARI COYLE ; [facility] TraMADol HCl 50 MG Tablet 05/24/2014 Provider: Diagnosis: Last Documented On 11/10/2014 8:26AM By KARI COYLE ; [facility] Medications Administered Includes: Administered [...] Active Last Documented On 8 11:22AM ; [facility] Insurance Includes: Active Insurance Policies Plan Name Member ID Group # Subscriber Relationship Effect demetra Dates 1 - [facility] [id number] JOSE FERRELL Self Clinical Notes Includes: Clinical Notes from this encounter No Clinical Notes Recorded
--- OUTSIDE RECORDS SUMMARY | 2025-04-20 10:40 | XMS_ITS | Encounter Summary ---
Author Organization [facility] Address [address] [facility] [place] [address] Care Team Providers Care Content Writer Name Role Phone Ashley Ama Floyd CAREERS ADVISER-COMPOSITION ROOFER Primary Care Provider [phone] Clifton Moreno MD Unavailable [phone] Hawa Villarreal CAREERS ADVISER-COMPOSITION ROOFER Unavailable Rissa Mercer MD Unavailable Encounter Details Date Type Department Care Team (Late st Contact Info) Description 04/08/2025 Lab Requisition [facility] [address] [place] [id number] Leeroy Walters CAREERS ADVISER-COMPOSITION ROOFER [address] [address] Social History Tobacco Use Types Packs/Day Years Used Date Smoking Tobacco: Every Day Cigarettes 0.5 11 Started: 2004; Last attempted to quit: 2015 Smokeless Tobacco: Never Comments:quit 3 years ago, r estarted Alcohol Use Standard Drinks/Week Comments Yes 0 (1 standard drink = 0.6 oz pur e alcohol) occ AUDIT-C Answer Date Recorded Q1: How often do you have a drink containing alc ohol? Never 09/12/2021 Average Number of Drinks Not on file 022 Q3: How often do you have si x or more drinks on one occasion? Never 09/12/2021 PHQ-2 Answer Date Recorded Patient Health Questionnaire-2 Score 2 08/05/2024 Comments No Sex and Gender Information Value Date Recorded Sex Assigned at Female 10/16/2020 9:09 AM CDT Legal Sex Female 12:38 PM INDEPENDENT VIDEO PRODUCER Gender Identity Female 10/16/2020 9:09 AM CDT Sexual Orientation Straight 10/16/2020 9: 09 AM CDT documented as of this encounter Functional Status * Functional and Cognitive Status Question Answer Date of Assessment Author Is person deaf or have hayes us hearing difficulty? No 04/08/2025 4:38 PM [place] Kristie Gay RN Is person blind or have seri ous difficulty seeing? No 04/08/2025 4:38 PM [place] Kristie Gay RN Does person have serious dif ficulty walking/climbing stairs? No 04/08/2025 4:38 PM [place] Kristie Gay RN Does person have difficulty dressing/bathing? No 04/08/2025 4:38 PM [place] Kristie Gay RN Does person have difficulty doing errands alone? No 04/08/2025 4:38 PM Kristie Cramer RN Does person have difficulty concentrating/remembering/making decisions? No 04/08/2025 4:38 PM [place] Kristie Gay RN * Is person deaf or have serious hearing difficulty? Answer Date of Assessment Author No 04/08/2025 4:38 PM Miki Cramer RN * Is person blind or have serious difficulty seeing? Answer Date of Assessment Author No 04/08/2025 4:38 PM Miki Cramer RN * Does person have serious difficulty walking/climbing stairs? Answer Date of Assessment Author No 04/08/2025 4:38 PM Miki Cramer RN * Does person have difficulty dressing/bathing? Answer Date of Assessment Author No 04/08/2025 4:38 PM Miki Cramer RN * Does person have difficulty doing errands alone? Answer Date of Assessment Author No 04/08/2025 4:38 PM CDT Miki Gay, RN documented as of this encounter Mental Status * Does person have difficulty concentrating/remembering/making decisions? Answer Entry Date Author No 04/08/2025 4:38 PM CDT Miki Gay RN documented in this encounter Plan of Treatment Upcoming Encounters Date Type Department Care Team (Late st Contact Info) Description 05/02/2025 8:00 AM INDEPENDENT VIDEO PRODUCER Office Visit [facility] - Neurosurgery [address] [facility], [place] [address] Prabhu Estevez MD [address] [facility] 2L [place] [address] documented as of this encounter Goals Goal Patient Goal Type Associated Problems Recent Progress Patient-Stated? Author Medication Management General On track( 023 9:21 AM CDT) No Helen Boyle RN Note: Expected end date: ongoing Interventions: Take all medications as prescribed Let your doctor know right away about any changes in your medications Make sure to request a refill of your medication at least one week prior to your last dose documented as of this encounter Procedures Procedure Name Priority Date/Time Associated Diagnosis Comments HEPATITIS C AB SCREEN RFLX NAAT QUANT STAT 04/08/2025 2:26 PM CDT HIV-1 HIV-2 ANTIBODY + HIV P24 AG PANEL Routine 04/08/2025 2:26 PM CDT HEPATITIS B SURFACE ANTIGEN W RFLX CONFIRMATION Routine 04/08/2025 2:26 PM CDT documented in this encounter Results * HEPATITIS C AB SCREEN RFLX NAAT QUANT (04/08/2025 2:26 PM CDT) Hepatitis C Antibody Non-react demetra Non-reac tive 04/08/2025 3:46 PM CDT [facility] Comment:Hepatitis C Antibody screen indicates no serologic evidence of past or current infection with Hepatitis C Virus. Patients with unexplained liver disease who are immunocompromised or suspected of having acute Hepatitis C infection may benefit from Nucleic Acid Test (MICHAEL) for Hepatitis C Viral RNA to confirm Hepatitis C status. Blood BLOOD SPECIMEN / Unknown 04/08/2025 2:26 PM CDT 04/08/2025 2:54 PM CDT Leeroy Walters C[facility]ERS [facility] - CHEMISTRY ORDERAB LES Final Result [address] [address], [place] [phone] * HEPATITIS B SURFACE ANTIGEN W RFLX CONFIRMATION (04/08/2025 2:26 PM CDT) Hepatitis B Virus Surface Antigen Non-reacti ve Non-reacti ve 04/08/2025 3:46 PM CDT [facility] Blood BLOOD SPECIMEN / Unknown 04/08/2025 2:26 PM CDT 04/08/2025 2:54 PM CDT Result [facility] Leeroy Walters C[facility]ERS [facility] - CHEMISTRY ORDERAB LES Final Result Performing Organization Address [facility]/ZIP Co de Phone Number [address] [address], [place] [phone] * HIV-1 HIV-2 ANTIBODY + HIV P24 AG PANEL (04/08/2025 2:26 PM CDT) HIV Antigen/Antibod y 1 & 2 Non-reacti ve Non-react demetra 04/08/2025 3:46 PM CDT [facility] Comment:No Laboratory eviden ce of HIV infection. Blood BLOOD SPECIMEN / Unknown 04/08/2025 2:26 PM CDT 04/08/2025 2:54 PM CDT Leeroy Walters [facility] - CHEMISTRY ORDERAB LES Final Result Performing Organization Address City/[facility]/ZIP Co de Phone Number [address] [address], [place] [phone] documented in this encounter Visit Diagnoses Not on filedocumented in this encounter Care Teams Content Writer Relationship Specialty Start Date End Date Ama Ramirez APRN-COMPOSITION ROOFER [address] [place] [address] PCP - General Internal Medicine 01/23/23 Clifton Moreno MD [address] [place] [address] Fashion Marketer Urogynecology 01/31/23 Hawa Villarreal APRN-COMPOSITION ROOFER [address] [facility] [address] [place] [address] Nurse Practitioner 01/31/23 Rissa Mercer MD [address] [place] [phone] Superintendent Production Rheumatology 01/18/25 documented as of this encounter
--- OUTSIDE RECORDS SUMMARY | 2025-04-20 10:40 | XMS_ITS | Encounter Summary ---
Author Organization [facility] Address [address] [place] [address] Care Team Providers Care Centerpuncher Name Role Phone Danish Gibbs Primary Care Provider [phone] Ama Ramirez DIRECTOR AIRPORT-GROUND OPERATIONS CREW MEMBER Primary Care Provider [phone] Clifton Moreno MD Unavailable [phone] Hawa Villarreal DIRECTOR AIRPORT-GROUND OPERATIONS CREW MEMBER Unavailable Rissa Mercer MD Unavailable [phone] Reason for Visit * Reason Onset Date Comments Order 05/04/2021 Encounter Details Date Type Department Care Team (Late st Contact Info) Description 05/04/2021 Telephone [facility] [address] [place], [place] [id number] Drake Mccarty MD [address] [facility] [address] [place], [place] [id number] Order Social History Tobacco Use Types Packs/Day Years Used Date Smoking Tobacco: Former Cigarettes 1 2015 Smokeless Tobacco: Former Comments:quit 3 years ago Alcohol Use Standard Drinks/Week Comments No 0 (1 standard drink = 0.6 oz pur e alcohol) Comments No Sex and Gender Information Value Date Recorded Sex Assigned at Female 10/16/2020 9:09 AM CDT Legal Sex Female 12:38 PM PRESIDENT AND CHIEF OPERATING OFFICER Gender Identity Female 10/16/2020 9:09 AM CDT Sexual Orientation Straight 10/16/2020 9: 09 AM CDT COVID-19 Exposure Response Date Recorded In the last month, have you been in contact with someone who was confirmed or suspected to have Coronavirus / COVID-19? No / Unsure 05/03/2021 2:05 PM CDT documented as of this encounter Functional Status * Is person deaf or have serious hearing difficulty? Answer Date of Assessment Author No 06/25/2018 10:55 PM Rosi French RN * Is person blind or have serious difficulty seeing? Answer Date of Assessment Author No 06/25/2018 10:55 PM Rosi French RN * Does person have serious difficulty walking/climbing stairs? Answer Date of Assessment Author No 06/25/2018 10:55 PM Rosi French RN * Does person have difficulty dressing/bathing? Answer Date of Assessment Author No 06/25/2018 10:55 PM Rosi French RN * Does person have difficulty doing errands alone? Answer Date of Assessment Author No 06/25/2018 10:55 PM Rosi French RN documented as of this encounter Mental Status * Does person have difficulty concentrating/remembering/making decisions? Answer Entry Date Author No 06/25/2018 10:55 PM Rosi French RN documented in this encounter Miscellaneous Notes * Telephone Encounter - Hossein East RN - 05/04/2021 4:09 PM CDT Patient never seen in the [facility] office. Forwarding to [facility] clinic nurse next door. * Telephone Encounter - Latha Roman - 05/04/2021 3:42 PM CDT Joselin from [facility] needs and order for Pelvic Floor PT. Please fax: [phone] documented in this encounter Plan of Treatment Upcoming Encounters Date Type Department Care Team (Late st Contact Info) Description 05/02/2025 8:00 AM PRESIDENT AND CHIEF OPERATING OFFICER Office Visit [facility] - Neurosurgery [address] [place] [address], [place] [address] Prabhu Estevez MD [address] [place] [address] [address] [place] [address] documented as of this encounter Goals Goal Patient Goal Type Associated Problems Recent Progress Patient-Stated? Author Medication Management General On track( 023 9:21 AM CDT) Helen Santana, RN Note: Expected end date: ongoing Interventions: Take all medications as prescribed Let your doctor know right away about any changes in your medications Make sure to request a refill of your medication at least one week prior to your last dose documented as of this encounter Visit Diagnoses Diagnosis Pelvic floor dysfunction in female- Primary documented in this encounter Care Teams Centerpuncher Relationship Specialty Start Date End Date Danish Gibbs PA [address] [place] [address] PCP - General Physician Corporate Law Assistant 04/14/15 01/22/23 Ama Ramirez APRN-GROUND OPERATIONS CREW MEMBER [address] [facility] [address], [place] [phone] PCP - General Internal Medicine 01/23/23 Clifton Moreno MD [address] [place] [id number] Freight Adjuster Urogynecology 01/31/23 Hawa Villarreal APRN-GROUND OPERATIONS CREW MEMBER [address] [place] [address] [address], [address] [place] [address] Nurse Practitioner 01/31/23 Rissa Mercer MD [address] [address] Railroad Accountant Rheumatology 01/18/25 documented as of this encounter
--- OUTSIDE RECORDS SUMMARY | 2025-04-20 10:40 | XMS_ITS | Clinical Summary ---
Author Organization [facility] Address [address] [place] [address] Phone Care Team Providers Care Contract Clerk Automobile Name Role Phone LIN PATEL MD Unavailable Unavailable Reason for Visit and Chief Complaint NO SHOW Problems Includes: Problems addressed during this encounter and other active Problems All Visits Onset Date Resolved Date Provider Condition S tatus History of Tubal Ligation 02/07/2015 DAVID GOLDEN RN [facility] Active Last Documented On 02/07/2015 1:11PM ; [facility] Note: Unchanged Essential Hypertension 02/07/2015 DAVID GOLDEN RN [facility] Active Last Documented On 02/07/2015 1:11PM ; [facility] Note: Unchanged Dysfunctional Uterine Bleeding 02/07/2015 DAVID GOLDEN RN [facility] Active Last Documented On 02/07/2015 1:11PM ; [facility] Note: Unchanged Plan of [...] On 8 11:25AM By QUAN COYLE ; [facility] BuPROPion HCl ER (XL) 150MG Oral Tablet Extended Release 24 Hour 03/20/2018 Provider: Diagnosis: 1 tab BID Last Documented On 8 11:25AM By QUAN COYLE ; [facility] CloNIDine HCl 0.2MG Oral Tablet 03/20/2018 Provider: Diagnosis: 1 tab daily Last Documented On 8 11:25AM By QUAN COYLE ; [facility] Citalopram Hydrobromide 20MG Oral Tablet 03/20/2018 Provider: Diagnosis: 1 tab daily Last Documented On 8 11:25AM By QUAN COYLE ; [facility] gabapentin 300mg Oral Capsule 03/20/2018 Provider: Diagnosis: 2 pills TID Last Documented On 8 11:23AM By QUAN COYLE ; [facility] Diclofenac Sodium 75MG Oral Tablet Delayed Release Provider: Diagnosis: 1 pill BID Last Documented On 8 11:23AM By QUAN COYLE ; [facility] Lisinopril 20MG Oral Tablet 03/20/2018 Provider: Diagnosis: 1 tab once daily Last Documented On 8 11:24AM By QUAN COYLE ; [facility] TiZANidine HCl 4MG Oral Tablet 03/20/2018 Provider: Diagnosis: 1 tab TID prn Last Documented On 8 11:24AM By QUAN COYLE ; [facility] Nadolol 40MG Oral Tablet 03/20/2018 Provider: Diagnosis: 1 tab once daily Last Documented On 8 11:24AM By QUAN COYLE ; [facility] ALPRAZolam 0.5MG Oral Tablet 03/20/2018 Provider: Diagnosis: 1 tab TID Last Documented On 8 11:24AM By QUAN COYLE ; [facility] clonazePAM 1 MG OR TABS 08/10/2014 Provider: Diagnosis: Last Documented On 08/19/2014 9:18AM By KARI COYLE ; [facility] TraMADol HCl 50 MG Tablet 05/24/2014 Provider: Diagnosis: Last Documented On 11/10/2014 8:26AM By KARI COYLE ; [facility] Medications Administered Includes: Administered [...] Active Last Documented On 8 11:22AM ; [facility] Encounters Encounter Provider Location Date Check-In Time Check-Out Time Diagnosis NO SHOW LEILA DE LA CRUZ-ROBINSON [facility]-MD 04/30/2018 2:53PM 11:59PM Insurance Includes: Active Insurance Policies Plan Name Member ID Group # Subscriber Relationship Effect demetra Dates - [facility] [id number] JOSE FERRELL Self Clinical Notes Includes: Clinical Notes from this encounter No Clinical Notes Recorded
--- OUTSIDE RECORDS SUMMARY | 2025-04-20 10:41 | XMS_ITS | Clinical Summary ---
Author Organization [facility] Address [address] [place] [address] Phone Care Team Providers Care Counselor At Law Name Role Phone LIN PATEL MD Unavailable Unavailable Reason for Visit and Chief Complaint NO SHOW Problems Includes: Problems addressed during this encounter and other active Problems All Visits Onset Date Resolved Date Provider Condition S tatus History of Tubal Ligation 02/07/2015 DAVID GOLDEN RN [facility] Active Last Documented On 02/07/2015 1:11PM ; [facility] Note: Unchanged Essential Hypertension 02/07/2015 DAVID GOLDEN RN [facility] Active Last Documented On 02/07/2015 1:11PM ; [facility] Note: Unchanged Dysfunctional Uterine Bleeding 02/07/2015 DAVID GOLDEN RN [facility] Active Last Documented On 02/07/2015 1:11PM ; [facility] Note: Unchanged Plan of Treatment No Plan [...] On 8 11:25AM By QUAN COYLE ; [facility] BuPROPion HCl ER (XL) 150MG Oral Tablet Extended Release 24 Hour 03/20/2018 Provider: Diagnosis: 1 tab BID Last Documented On 8 11:25AM By QUAN CYOLE ; [facility] CloNIDine HCl 0.2MG Oral Tablet 03/20/2018 Provider: Diagnosis: 1 tab daily Last Documented On 8 11:25AM By QUAN COYLE ; [facility] Citalopram Hydrobromide 20MG Oral Tablet 03/20/2018 Provider: Diagnosis: 1 tab daily Last Documented On 8 11:25AM By QUAN COYLE ; [facility] gabapentin 300mg Oral Capsule 03/20/2018 Provider: Diagnosis: 2 pills TID Last Documented On 8 11:23AM By QUAN COYLE ; [facility] Diclofenac Sodium 75MG Oral Tablet Delayed Release Provider: Diagnosis: 1 pill BID Last Documented On 8 11:23AM By QUAN COYLE ; [facility] Lisinopril 20MG Oral Tablet 03/20/2018 Provider: Diagnosis: 1 tab once daily Last Documented On 8 11:24AM By QUAN COYLE ; [facility] TiZANidine HCl 4MG Oral Tablet 03/20/2018 Provider: Diagnosis: 1 tab TID prn Last Documented On 8 11:24AM By QUAN COYLE ; [facility] Nadolol 40MG Oral Tablet 03/20/2018 Provider: Diagnosis: 1 tab once daily Last Documented On 8 11:24AM By QUAN COYLE ; [facility] ALPRAZolam 0.5MG Oral Tablet 03/20/2018 Provider: Diagnosis: 1 tab TID Last Documented On 8 11:24AM By QUAN COYLE ; [facility] clonazePAM 1 MG OR TABS 08/10/2014 Provider: Diagnosis: Last Documented On 08/19/2014 9:18AM By KARI COYLE ; [facility] TraMADol HCl 50 MG Tablet 05/24/2014 Provider: Diagnosis: Last Documented On 11/10/2014 8:26AM By KARI COYLE ; [facility] Medications Administered Includes: [...] Active Last Documented On 8 11:22AM ; [facility] Insurance Includes: Active Insurance Policies Plan Name Member ID Group # Subscriber Relationship Effect demetra Dates 1 - [facility] [id number] JOSE FERRELL Self Clinical Notes Includes: Clinical Notes from this encounter No Clinical Notes Recorded
--- OUTSIDE RECORDS SUMMARY | 2025-04-20 10:41 | XMS_ITS ---
Author Organization [facility] Address [address] [place] [address] Phone Care Team Providers Care Hunter Name Role Phone LIN PATEL MD Unavailable Unavailable Problems Includes: Active, inactive, and resolved Problems All Visits Onset Date Resolved Date Provider Condition S tatus History of Tubal Ligation 02/07/2015 DAVID GOLDEN RN [facility] Active Last Documented On 02/07/2015 1:11PM ; [facility] Note: Unchanged Essential Hypertension 02/07/2015 DAVID GOLDEN RN [facility] Active Last Documented On 02/07/2015 1:11PM ; [facility] Note: Unchanged Dysfunctional Uterine Bleeding 02/07/2015 DAVID GOLDEN RN [facility] Active Last Documented On 02/07/2015 1:11PM ; [facility] Note: Unchanged Plan of Treatment Findings Encounter Date Ordered Clinical summary pro vided to patient CONSULTATION with DAVID GOLDEN RN [facility] 04/20/2015 Last Documented On 5 2:39PM ; [facility] Ordered Clinical summary pro vided to patient PROBLEM VISIT with DAVID GOLDEN RN [facility] 02/07/2015 Last Documented On 5 1:12PM ; [facility] Instructions to patient Instructions for patient : B reast Self Exam discussed Last Documented On 5 8:36AM ; [facility] Education and Decision Aids were provided during [...] REPORT CALLED TO TRIAGE NURSE KUNAL AT [facility] Last Documented On 5 1:10PM ; [facility] Patient counseling : Use of oral contraceptives discussed in detail including rare occurrence of heart attack, stroke, and leg clots. Patient understands that smoking increases the risk of serious side effects with any steroid-based contraceptive method Last Documented On 5 8:47AM ; [facility] STD screening offered and de clined Last Documented On 5 8:36AM ; [facility] Patient counseling : Use of oral contraceptives discussed in detail including rare occurrence of heart attack, stroke, and leg clots. Patient understands that smoking increases the risk of serious side effects with any steroid-based contraceptive method Last Documented On 5 2:55PM ; [facility] Assessments Includes: Assessments for all patient encounters Findings Encounter Date Chronic pain syndrome PAIN MANAGEMENT NE W CONSULT with LEILA DAVIS [facility] 03/20/2018 Last Documented On 8 9:10AM ; [facility] Localized lumbar osteoarthritis PAIN MAN AGEMENT NEW CONSULT with LEILATERESITA DAVIS [facility] 03/20/2018 Last Documented On 8 9:10AM ; [facility] director long term care use of opiate analgesic PAIN M ANAGEMENT NEW CONSULT with LEILATERESITA DAVIS [facility] 03/20/2018 Last Documented On 8 9:10AM ; [facility] Lumbar radiculopathy PAIN MANAGEMENT NEW CONSULT with LEILATERESITA DAVIS [facility] 03/20/2018 Last Documented On 8 9:10AM ; [facility] Lumbosacral spinal stenosis PAIN MANAGEM ENT NEW CONSULT with LEILATERESITA DAVIS [facility] 03/20/2018 Last Documented On 8 9:10AM ; [facility] Cyst on the right ovary PELVIC W/TVT with DAVID GOLDEN RN [facility] 03/08/2015 Last Documented On 5 4:39PM ; [facility] Dysfunctional uterine bleeding PROBLEM VISIT wit h DAVID GOLDEN RN [facility] 02/07/2015 Last Documented On 5 1:12PM ; [facility] Essential hypertension PROBLEM VISIT with DAVID GOLDEN RN [facility] 02/07/2015 Last Documented On 5 1:12PM ; [facility] Routine pelvic exam PRODUCTION POTTER EXAM with BREA MG MD 11/10/2014 Last Documented On 5 8:48AM ; [facility] POST OP VISIT POST OP VISIT with BREA MG MD 09/27/2014 Last Documented On 5 2:55PM ; [facility] Female pelvic pain NEW PRODUCTION POTTER EXAM with BREA OLIVERA MD 08/19/2014 Last Documented On 5 10:07AM ; [facility] Ovarian cyst NEW PRODUCTION POTTER EXAM with BREA MG MD 08/19/2014 Last Documented On 5 10:07AM ; [facility] Instructions Includes: Instructions for all patient encounters Instructions to patient Instructions for patient : B reast Self Exam discussed Last Documented On 5 8:36AM ; [facility] Education and Decision Aids were provided during visit for: Patient education :DISCUSSED NEED FOR SEROLOGY AND U/S AFTER PT IS EVALUATED IN [facility] ER TODAY FOR HTN. PT STATES B/P FLUCTUATES SO MUCH THAT PCP WON'T TX. CV PRECAUTIONS GIVEN AND PT AGREES TO GO TO ER FOR EVAL. AND MGT OF HTN. PT WILL BE CONTACTED AFTER SEROLOGY AND U/S REVIEW FOR PLAN OF CARE. PT HAS BEEN INSTRUCTED TO DC COCP IMMEDIATELY AND ALL QUESTIONS ANSWERED. REPORT CALLED TO TRIAGE NURSE KUNAL AT [facility] Last Documented On 5 1:10PM ; [facility] Patient counseling : Use of oral contraceptives discussed in detail including rare occurrence of heart attack, stroke, and leg clots. Patient understands that smoking increases the risk of serious side effects with any steroid-based contraceptive method Last Documented On 5 8:47AM ; [facility] STD screening offered and de clined Last Documented On 5 8:36AM ; [facility] Patient counseling : Use of oral contraceptives discussed in detail including rare occurrence of heart attack, stroke, and leg clots. Patient understands that smoking increases the risk of serious side effects with any steroid-based contraceptive method Last Documented On 5 2:55PM ; [facility] Medical Equipment - Implanted Devices Includes: Current and historical Devices No Medical Equipment Recorded Medications Includes: Current and historical Medications Current Medications (continue as prescribed) Reglan 10MG Oral Tablet 03/20/2018 Provider: Diagnosis: 1 tab QID prn Last Documented On 8 11:25AM By QUAN COYLE ; [facility] BuPROPion HCl ER (XL) 150MG Oral Tablet Extended Release 24 Hour 03/20/2018 Provider: Diagnosis: 1 tab BID Last Documented On 8 11:25AM By QUAN COYLE ; [facility] CloNIDine HCl 0.2MG Oral Tablet 03/20/2018 Provider: Diagnosis: 1 tab daily Last Documented On 8 11:25AM By QUAN COYLE ; [facility] Citalopram Hydrobromide 20MG Oral Tablet 03/20/2018 Provider: Diagnosis: 1 tab daily Last Documented On 8 11:25AM By QUAN COYLE ; [facility] gabapentin 300mg Oral Capsule 03/20/2018 Provider: Diagnosis: 2 pills TID Last Documented On 8 11:23AM By QUAN COYLE ; [facility] Diclofenac Sodium 75MG Oral Tablet Delayed Release Provider: Diagnosis: 1 pill BID Last Documented On 8 11:23AM By QUAN COYLE ; [facility] Lisinopril 20MG Oral Tablet 03/20/2018 Provider: Diagnosis: 1 tab once daily Last Documented On 8 11:24AM By QUAN COYLE ; [facility] TiZANidine HCl 4MG Oral Tablet 03/20/2018 Provider: Diagnosis: 1 tab TID prn Last Documented On 8 11:24AM By QUAN COYLE ; [facility] Nadolol 40MG Oral Tablet 03/20/2018 Provider: Diagnosis: 1 tab once daily Last Documented On 8 11:24AM By QUAN COYLE ; [facility] ALPRAZolam 0.5MG Oral Tablet 03/20/2018 Provider: Diagnosis: 1 tab TID Last Documented On 8 11:24AM By QUAN COYLE ; [facility] clonazePAM 1 MG OR TABS 08/10/2014 Provider: Diagnosis: Last Documented On 08/19/2014 9:18AM By KARI COYLE ; [facility] TraMADol HCl 50 MG Tablet 05/24/2014 Provider: Diagnosis: Last Documented On 11/10/2014 8:26AM By KARI COYLE ; [facility] Past Medications on file CloNIDine HCl 0.1 MG Tablet 04/20/2015 - 03/20/2018 Pr ovider: Diagnosis: Last Documented On 8 11:23AM By QUAN COYLE ; [facility] Aviane 0.1-20 MG-MCG Tablet 11/10/2014 - 02/07/2015 Pr ovider: BREA MG MD Diagnosis: One tablet daily Last Documented On 5 12:17PM By DAVID PALM ; [facility] Gabapentin 600 MG Tablet 10/19/2014 - 03/20/2018 Provi aashish: Diagnosis: Last Documented On 8 11:23AM By QUAN COYLE ; [facility] Bactrim DS 800-160 MG Tablet 10/03/2014 - 11/10/2014 P rovider: Diagnosis: Last Documented On 11/10/2014 8:25AM By KARI COYLE ; [facility] Aviane 0.1-20 MG-MCG Tablet 09/27/2014 - 11/10/2014 Pr ovider: BREA MG MD Diagnosis: One tablet daily Last Documented On 11/10/2014 8:47AM By BREA MG MD ; [facility] Clarinex-D 12 Hour 2.5-120 M G Tablet, extended-release 12 hour 09/27/2014 - 11/10/2014 Provider: Diagnosis: Last Documented On 11/10/2014 8:25AM By KARI COYLE ; [facility] Hydrocodone-Acetaminophen 5- 325 MG Tablet 09/22/2014 - 09/29/2014 Provider: BREA MG MD Diagnosis: 1 every 4 - 6 hours as needed Last Documented On 09/22/2014 11:46AM By BREA MG MD ; [facility] HYDROcodone-Acetaminophen 5- 325 MG OR TABS 09/01/2014 - 09/04/2014 Provider: BREA MG MD Diagnosis: Last Documented On 09/01/2014 5:01PM By BREA MG MD ; [facility] Amoxicillin 250 MG OR CAPS 08/19/2014 - 09/27/2014 Pro vider: Diagnosis: Last Documented On 09/27/2014 2:38PM By KARI COYLE ; [facility] Sudafed PE Severe Cold 12.5-5-325 MG OR TABS 5 - 11/10/2014 Provider: Diagnosis: Last Documented On 11/10/2014 8:25AM By KARI COYLE ; [facility] Gabapentin 600 MG OR TABS 08/02/2014 - 09/27/2014 Prov ider: Diagnosis: Last Documented On 09/27/2014 2:39PM By KARI COYLE ; [facility] Medications Administered Includes: Administered Medications in patient's chart No Administered Medications Recorded Results Includes: Results from 04/20/2024 through 04/20/2025 No Results Recorded For Specified Dates History of Present Illness History of Present Illness not supported for this document type No History of Present Illness Recorded Social History Description Last Updated Currently 03/20/2018 Last Documented On 8 9:10AM ; [facility] No consumption of alcohol 03/20/2018 Last Documented On 8 9:10AM ; [facility] No tobacco use 03/20/2018 Last Documented On 8 9:10AM ; [facility] Not using drugs 03/20/2018 Last Documented On 8 9:10AM ; [facility] In monogamous relationship 04/20/2015 Last Documented On 5 2:39PM ; [facility] Sexually active 04/20/2015 Last Documented On 5 2:39PM ; [facility] Smoking status : Former smoker 5 Last Documented On 5 2:39PM ; [facility] Procedures and Surgical History Surgical History Last Updated History of tubal ligation 09/27/2014 Last Documented On 5 2:55PM ; [facility] Surgical / procedural history knee surge ry -2000 ~breast reduction -200608/19/2014 Last Documented On 5 10:07AM ; [facility] Medical History Includes: Medical History in patient's chart Description Last Updated 1 miscarriage(s) 03/20/2018 Last Documented On 8 9:10AM ; [facility] Currently wearing eyeglasses 03/20/2018 Last Documented On 8 9:10AM ; [facility] Previously 3 time(s) 03/20/2018 Last Documented On 8 9:10AM ; [facility] History of arthritis 03/20/2018 Last Documented On 8 9:10AM ; [facility] History of hypertension 03/20/2018 Last Documented On 8 9:10AM ; [facility] Reported recurrent infections 03/20/2018 Last Documented On 8 9:10AM ; [facility] Status post tubal ligation 02/07/2015 Last Documented On 5 1:12PM ; [facility] L OOPHORECTOMY/LYSIS OF ADHESIONS 09/11 O VARIAN CYSTS 02/07/2015 Last Documented On 5 1:12PM ; [facility] Contraception: pt says she hasn't been t aking correctly 02/07/2015 Last Documented On 5 1:12PM ; [facility] Para 2 twins 11/10/2014 Last Documented On 5 8:48AM ; [facility] LMP: 10/23/2014 11/10/2014 Last Documented On 5 8:48AM ; [facility] Last pap smear date 201211/10/2014 Last Documented On 5 8:48AM ; [facility] Result: normal 11/10/2014 Last Documented On 5 8:48AM ; [facility] Aborta 2 11/10/2014 Last Documented On 5 8:48AM ; [facility] 4 11/10/2014 Last Documented On 5 8:48AM ; [facility] Family History Includes: Family History in patient's chart Description Last Updated Family history of cancer 03/20/2018 Last Documented On 8 9:10AM ; [facility] Family history of heart disease 03/20/20 18 Last Documented On 8 9:10AM ; [facility] Maternal history of malignant female am[place] ast neoplasm 11/10/2014 Last Documented On 5 8:48AM ; [facility] Family history of diabetes mellitus dad 08/19/2014 Last Documented On 5 10:07AM ; [facility] Family history of malignant female breas t neoplasm maternal grandma 08/19/2014 Last Documented On 5 10:07AM ; [facility] Review of Systems Review of Systems not [...] Active Last Documented On 8 11:22AM ; [facility] Insurance Includes: Active Insurance Policies Plan Name Member ID Group # Subscriber Relationship Effect demetra Dates 1 - [facility] [id number] JOSE Yoon Clinical Notes Includes: Signed Clinical Notes starting from 07/19/2022 No Clinical Notes Recorded
--- OUTSIDE RECORDS SUMMARY | 2025-04-20 10:41 | XMS_ITS | Clinical Summary ---
Author Organization [facility] Address [address] [place] [address] Phone Care Team Providers Care In Shop Service Technician Name Role Phone LIN PTAEL MD Unavailable Unavailable Reason for Visit and Chief Complaint [Patient Encounter] Problems Includes: Problems addressed during this encounter and other active Problems All Visits Onset Date Resolved Date Provider Condition S tatus History of Tubal Ligation 02/07/2015 DAVID GOLDEN RN [facility] Active Last Documented On 02/07/2015 1:11PM ; [...] 8 11:25AM By QUAN COYLE ; [facility] BuPROPion HCl ER (XL) 150MG Oral Tablet Extended Release 24 Hour 03/20/2018 Provider: Diagnosis: 1 tab BID Last Documented On 8 11:25AM By QUAN COYLE ; [facility] CloNIDine HCl 0.2MG Oral Tablet 03/20/2018 Provider: Diagnosis: 1 tab daily Last Documented On 8 11:25AM By QUAN COYLE ; [facility] Citalopram Hydrobromide 20MG Oral Tablet 03/20/2018 Provider: Diagnosis: 1 tab daily Last Documented On 8 11:25AM By QUAN COYLE ; [facility] gabapentin 300mg Oral Capsule 03/20/2018 Provider: Diagnosis: 2 pills TID Last Documented On 8 11:23AM By QUAN COYLE ; [facility] Diclofenac Sodium 75MG Oral Tablet Delayed Release Provider: Diagnosis: 1 pill BID Last Documented On 8 11:23AM By QUAN COYLE ; [facility] Lisinopril 20MG Oral Tablet 03/20/2018 Provider: Diagnosis: 1 tab once daily Last Documented On 8 11:24AM By QUAN COYLE ; [facility] TiZANidine HCl 4MG Oral Tablet 03/20/2018 Provider: Diagnosis: 1 tab TID prn Last Documented On 8 11:24AM By QUAN COYLE ; [facility] Nadolol 40MG Oral Tablet 03/20/2018 Provider: Diagnosis: 1 tab once daily Last Documented On 8 11:24AM By QUAN COYLE ; [facility] ALPRAZolam 0.5MG Oral Tablet 03/20/2018 Provider: Diagnosis: 1 tab TID Last Documented On 8 11:24AM By QUAN COYLE ; [facility] clonazePAM 1 MG OR TABS 08/10/2014 Provider: Diagnosis: Last Documented On 08/19/2014 9:18AM By KARI COYLE ; [facility] TraMADol HCl 50 MG Tablet 05/24/2014 Provider: Diagnosis: Last Documented On 11/10/2014 8:26AM By KARI COYLE ; [facility] Medications Administered Includes: Administered Medications [...] Last Documented On 8 11:22AM ; [facility] Encounters Encounter Provider Location Date Check-In Time Check- Out Time Diagnosis [Patient Encounter] BREA MG MD [facility] INCIDENT ANALYST 5 3:54PM 11:59PM Insurance Includes: Active Insurance Policies Plan Name Member ID Group # Subscriber Relationship Effect demetra Dates - [facility] [id number] JOSE Yoon Clinical Notes Includes: Clinical Notes from this encounter No Clinical Notes Recorded
--- OUTSIDE RECORDS SUMMARY | 2025-04-20 10:41 | XMS_ITS ---
Care Plan - [facility] Created on: April 20, 2025 JOSE FERRELL : 1985 Sex: Female Author Organization [facility] Address [address] [place] [address] Phone Care Team Providers Care Artillery Specialist Name Role Phone JORGE OSULLIVAN, LIN Arteaga Unavailable
--- OUTSIDE RECORDS SUMMARY | 2025-04-20 10:42 | XMS_ITS | Clinical Summary ---
Author Organization [facility] Address [address] [place] [address] Phone Care Team Providers Care Corporate Treasurer Name Role Phone LIN PATEL MD Unavailable Unavailable Reason for Visit and Chief Complaint referred by Danish Gibbs - The Chief Complaint is: Low back pain, L hip. Physical therapy- doesn't help. Pain management- Castalia's injections did not help Problems Includes: Problems addressed during this encounter and other active Problems Current Visit Onset Date Resolved Date Provider Conditio n Status History of Tubal Ligation 02/07/2015 DAVID GOLDEN RN [facility] Active Last Documented On 02/07/2015 1:11PM ; [facility] Note: Unchanged Past Visits Onset Date Resolved Date Provider Condition Status Essential Hypertension 02/07/2015 DAVID GOLDEN RN [facility] Active Last Documented On 02/07/2015 1:11PM ; [facility] Note: Unchanged Dysfunctional Uterine Bleeding 02/07/2015 DAVID GOLDEN RN [facility] Active Last Documented On 02/07/2015 1:11PM ; [facility] Note: Unchanged Plan of Treatment Pending Tests Order Diagnosis Results Due Ordering Roberto myers Lab PAIN MGMT, TRAMADOL, QN,W/medMATCH,U 03/27/18 LEILA L RYAN ANP - Last Documented On 8 1:59PM ; [facility] Lab PAIN MANAGEMENT, PROFILE 6 WITH CONFIRMATION 03/27/18 LEILA L RYAN ANP- Last Documented On 8 1:59PM ; [facility] In office procedures - *Clia Waived Labs Urine Drug Screen Chronic pain syndrome 04/03/18 LEILA L RYAN ANP- Last Documented On 8 9:10AM ; [facility] Assessments Includes: Assessments from this encounter Findings - Localized lumbar osteoarthritis [M47.816 - Spondylosis without myelopathy or radiculopathy, lumbar region] - Last Documented On 04/06/2018 9:10AM ; [facility] - Lumbosacral spinal stenosis [M48.07 - Spinal stenosis, lumbosacral region] - Last Documented On 04/06/2018 9:10AM ; [facility] - Lumbar radiculopathy [M54.16 - Radiculopathy, lumbar region] - Last Documented On 04/06/2018 9:10AM ; [facility] - Chronic pain syndrome [G89.4 - Chronic pain syndrome] - Last Documented On 04/06/2018 9:10AM ; 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 Medical Equipment - Implanted Devices Includes: Current Devices No Medical Equipment Recorded Medications Includes: Medications discussed during this encounter and other current Medications Discontinued / Stopped on this date on 04/20/2015 CloNIDine HCl 0.1 MG Tablet Provider: Diagnosis: Last Documented On 8 11:23AM By QUAN COYLE ; [facility] Gabapentin 600 MG Tablet Provider: Diagnosis: Last Documented On 8 11:23AM By QUAN COYLE ; [facility] Current Medications (continue as prescribed) Reglan 10MG Oral Tablet 03/20/2018 Provider: Diagnosis: 1 tab QID prn Last Documented On 8 11:25AM By QUAN COYEL ; [facility] BuPROPion HCl ER (XL) 150MG Oral Tablet Extended Release 24 Hour 03/20/2018 Provider: Diagnosis: 1 tab BID Last Documented On 8 11:25AM By QUAN COYLE ; [facility] CloNIDine HCl 0.2MG Oral Tablet 03/20/2018 Provider: Diagnosis: 1 tab daily Last Documented On 8 11:25AM By QUAN COYLE ; [facility] Citalopram Hydrobromide 20MG Oral Tablet 03/20/2018 Provider: Diagnosis: 1 tab daily Last Documented On 8 11:25AM By QUAN COYLE ; [facility] gabapentin 300mg Oral Capsule 03/20/2018 Provider: Diagnosis: 2 pills TID Last Documented On 8 11:23AM By QUAN COYLE ; [facility] Diclofenac Sodium 75MG Oral Tablet Delayed Release Provider: Diagnosis: 1 pill BID Last Documented On 8 11:23AM By QUAN COYLE ; [facility] Lisinopril 20MG Oral Tablet 03/20/2018 Provider: Diagnosis: 1 tab once daily Last Documented On 8 11:24AM By QUAN COYLE ; [facility] TiZANidine HCl 4MG Oral Tablet 03/20/2018 Provider: Diagnosis: 1 tab TID prn Last Documented On 8 11:24AM By QUAN COYLE ; [facility] Nadolol 40MG Oral Tablet 03/20/2018 Provider: Diagnosis: 1 tab once daily Last Documented On 8 11:24AM By QUAN COYLE ; [facility] ALPRAZolam 0.5MG Oral Tablet 03/20/2018 Provider: Diagnosis: 1 tab TID Last Documented On 8 11:24AM By QUAN COYLE ; [facility] clonazePAM 1 MG OR TABS 08/10/2014 Provider: Diagnosis: Last Documented On 08/19/2014 9:18AM By KARI COYLE ; [facility] TraMADol HCl 50 MG Tablet 05/24/2014 Provider: Diagnosis: Last Documented On 11/10/2014 8:26AM By KARI COYLE ; [facility] Past Medications on file Hydrocodone-Acetaminophen 5- 325 MG Tablet 09/22/2014 - 09/29/2014 Provider: BREA MG MD Diagnosis: 1 every 4 - 6 hours as needed Last Documented On 09/22/2014 11:46AM By BREA MG MD ; [facility] HYDROcodone-Acetaminophen 5- 325 MG OR TABS 09/01/2014 - 09/04/2014 Provider: BREA MG MD Diagnosis: Last Documented On 09/01/2014 5:01PM By BREA MG MD ; [facility] Medications Administered Includes: Administered [...] Last Documented: On 03/20/2018 11:27A M ; [facility] Results Includes: Results discussed during this encounter Drugs of abuse screen [facility] Ordered by LEILA RICH on Collected: Reported: 03/20/2018 14:38 Last Documented On 8 2:38PM ; [facility] Reviewed on 03/20/2018; All test results are final unless otherwise noted. Internal QC Acceptable neg (neg) N (Normal) Last Documented On 8 2:38PM ; [facility] Lot # & Exp. Date [id number] 06/17 (neg) N (Normal) Last Documented On 8 2:38PM ; [facility] Amphetamines neg (NEG) N (Normal) Last Documented On 8 2:38PM ; [facility] Barbiturates neg (neg) N (Normal) Last Documented On 8 2:38PM ; [facility] Benzodiazepines pos (neg) A (Abnormal) Last Documented On 8 2:38PM ; [facility] Cocaine neg (neg) N (Normal) Last Documented On 8 2:38PM ; [facility] Ecstasy neg (Neg) N (Normal) Last Documented On 8 2:38PM ; [facility] Methamphetamines neg (neg) N (Normal) Last Documented On 8 2:38PM ; [facility] Methadone neg (Neg) N (Normal) Last Documented On 8 2:38PM ; [facility] Morphine neg (Neg) N (Normal) Last Documented On 8 2:38PM ; [facility] Oxycodone neg (Neg) N (Normal) Last Documented On 8 2:38PM ; [facility] Phencyclidine neg (NEG) N (Normal) Last Documented On 8 2:38PM ; [facility] TCA/Tricyclic Antidepressants neg (neg) N (Normal) Last Documented On 8 2:38PM ; [facility] Cannabis neg (neg) N (Normal) Last Documented On 8 2:38PM ; [facility] History of Present Illness [...] in late March. Injections [address] with no benefit. SI [...] 03/20/2018 Last Documented On 8 9:10AM ; [facility] No consumption of alcohol 03/20/2018 Last Documented On 8 9:10AM ; [facility] No tobacco use 03/20/2018 Last Documented On 8 9:10AM ; [facility] Not using drugs 03/20/2018 Last Documented On 8 9:10AM ; [facility] In monogamous relationship 04/20/2015 Last Documented On 8 11:20AM ; [facility] Sexually active 04/20/2015 Last Documented On 8 11:20AM ; [facility] Smoking status : Former smoker 5 Last Documented On 8 11:20AM ; [facility] Procedures and Surgical History Includes: Procedures from this encounter Procedures Code Diagnosis Performing Provider Service L ocation Service Date education and instructions provided Last Documented On 8 9:02AM ; [facility] Surgical History Last Updated History of tubal ligation 09/27/2014 Last Documented On 8 11:20AM ; [facility] Surgical / procedural history knee surge ry 7-2000 ~breast reduction -200608/19/2014 Last Documented On 8 11:20AM ; [facility] Medical History Includes: Medical History addressed during this encounter Description Last Updated 1 miscarriage(s) 03/20/2018 Last Documented On 8 9:10AM ; [facility] Currently wearing eyeglasses 03/20/2018 Last Documented On 8 9:10AM ; [facility] Previously 3 time(s) 03/20/2018 Last Documented On 8 9:10AM ; [facility] History of arthritis 03/20/2018 Last Documented On 8 9:10AM ; [facility] History of hypertension 03/20/2018 Last Documented On 8 9:10AM ; [facility] Reported recurrent infections 03/20/2018 Last Documented On 8 9:10AM ; [facility] Status post tubal ligation 02/07/2015 Last Documented On 8 11:20AM ; [facility] L OOPHORECTOMY/LYSIS OF ADHESIONS 09/11 O VARIAN CYSTS 02/07/2015 Last Documented On 8 11:20AM ; [facility] Contraception: pt says she hasn't been t aking correctly 02/07/2015 Last Documented On 8 11:20AM ; [facility] Para 2 twins 11/10/2014 Last Documented On 8 11:20AM ; [facility] LMP: 10/23/2014 11/10/2014 Last Documented On 8 11:20AM ; [facility] Last pap smear date 201211/10/2014 Last Documented On 8 11:20AM ; [facility] Result: normal 11/10/2014 Last Documented On 8 11:20AM ; [facility] Aborta 2 11/10/2014 Last Documented On 8 11:20AM ; [facility] 4 11/10/2014 Last Documented On 8 11:20AM ; [facility] Family History Includes: Family History addressed during this encounter Description Last Updated Family history of cancer 03/20/2018 Last Documented On 8 9:10AM ; [facility] Family history of heart disease 03/20/20 Last Documented On 8 9:10AM ; [facility] Maternal history of malignant female [place] ast neoplasm 11/10/2014 Last Documented On 8 11:20AM ; [facility] Family history of diabetes mellitus dad 08/19/2014 Last Documented On 8 11:20AM ; [facility] Family history of malignant female breas t neoplasm maternal grandma 08/19/2014 Last Documented On 8 11:20AM ; [facility] Review of Systems Includes: Review of Systems [...] Active Last Documented On 8 11:22AM ; [facility] Encounters Encounter Provider Location Date Check-In Time Check-Out Time Diagnosis PAIN MANAGEMENT NEW CONSULT LEILA DAVIS [facility] 03/20/20 18 11:15AM 12:14PM Lumbar Radiculopathy ,Spinal Stenosis Lumbosacral,C hronic Pain Syndrome,Oste oarthritis Localized Vertebral Lumbar,Wire Machine Operator Use of Opiate Analgesic Insurance Includes: Active Insurance Policies Plan Name Member ID Group # Subscriber Relationship Effect demetra Dates 1 - [facility] [id number] JOSE FERRELL Self Clinical Notes Includes: Clinical Notes from this encounter No Clinical Notes Recorded
--- OUTSIDE RECORDS SUMMARY | 2025-04-20 10:42 | XMS_ITS | Clinical Summary ---
Author Organization [facility] Address [address] [place] [phone] Phone Care Team Providers Care Tax Investigator Name Role Phone Ama Ramirez NP Primary Care Provider [phone] Allergies Active Allergy Reactions Criticality Noted Date Comments Adhesive Urticaria High 06/05/2016 Amoxicillin-Pot Clavulanate Rash Medium 06/12/2020 Ampicillin Hives,Itching,Rash ,Urticaria Medium 06/05/2016 Clavulanic Acid Rash Medium 04/04/2020 Metoclopramide Dystonia,Muscle pain,Shortness of breath,Swelling,Di zziness High 10/19/2018 Morphine Unknown Pt states she is not allergic or intolerant Sulfamethoxazole Unknown 04/04/2020 Sulfamethoxazole-Trimetho prim Urticaria Medium 06/12/2020 Trimethoprim Unknown 04/04/2020 Medications cholecalciferol (VITAMIN D-3) 5,000 unit tablet Take 10 tablets (50,000 Units total) by mouth once a week Active levocetirizine (XYZAL) 5 mg tablet Take 1 tablet (5 mg total) by mouth 2 (two) times a day 180 tablet 03/15/20 24 Active upadacitinib (Rinvoq) 15 mg tablet extended release 24 hr Take 15 mg by mouth daily Active naltrexone (LOW DOSE) 4.5 mg capsule Take 1 capsule (4.5 mg total) by mouth daily 06/01/20 24 025 Active nortriptyline (PAMELOR) 10 mg capsuleIndications :Chronic pain disorder,Cyclical vomiting syndrome,Restless legs syndrome Take 1 capsule (10 mg total) by mouth nightly 30 capsule 11 06/01/20 24 025 Active famotidine (PEPCID) 20 mg tablet TAKE 1 TABLET BY MOUTH TWICE A DAY 120 tablet 06/24/20 24 Active ALPRAZolam (XANAX) 1 mg tablet TAKE 1 TABLET BY MOUTH THREE TIMES A DAY NEEDED FOR ANXIETY 90 tablet 06/28/20 24 Active spironolactone (ALDACTONE) 50 mg tabletIndications: Essential hypertension Take 1 tablet (50 mg total) by mouth daily 100 tablet 1 07/07/19 25 Active escitalopram (LEXAPRO) 10 mg tabletIndications: Moderate episode of recurrent major depressive disorder (HCC),AMY (generalized anxiety disorder) TAKE 1 TABLET BY MOUTH EVERY DAY 100 tablet 1 07/12/19 25 Active buPROPion XL (WELLBUTRIN XL) 300 mg 24 hr tablet TAKE 1 TABLET BY MOUTH EVERY MORNING 100 tablet 1 08/24/19 25 Active rOPINIRole (REQUIP) 0.5 mg tablet TAKE 1 TABLET BY MOUTH NIGHTLY 90 tablet 1 10/05/19 25 Active ondansetron ODT (ZOFRAN-ODT) 8 mg disintegrating tablet TAKE 1 TABLET (8 MG TOTAL) BY MOUTH NEEDED FOR NAUSEA 20 tablet 10/22/19 25 Active celecoxib (CeleBREX) 200 mg capsule TAKE ONE CAPSULE BY MOUTH DAILY 30 capsule 12/16/19 25 Active ascorbic acid (VITAMIN C) 250 mg tablet Take 1 tablet (250 mg total) by mouth daily 90 tablet 3 01/27/20 25 Active vit I-zhsmeyrai-yukmhu v,citrus (Quercetin Complex) 500-225-33 mg capsule Take 1 capsule by mouth daily 90 capsule 3 01/27/20 25 Active ergocalciferol (VITAMIN D) 50,000 unit capsule Take 1 capsule (50,000 Units total) by mouth once a week 12 capsule 3 01/27/20 25 Active nebivoloL (BYSTOLIC) 10 mg tablet Take 1 tablet (10 mg total) by mouth daily 30 tablet 11 01/27/20 25 026 Active atorvastatin (LIPITOR) 10 mg tablet Take 1 tablet (10 mg total) by mouth daily 90 tablet 4 01/28/20 25 026 Active montelukast (SINGULAIR) 10 mg tablet Take 1 tablet (10 mg total) by mouth every evening Active Xeljanz XR 11 mg Take 1 tablet (11 mg total) by mouth daily 01/19/20 25 Active meclizine (ANTIVERT) 12.5 mg tabletIndications: Vertigo TAKE 1 TABLET BY MOUTH 3 TIMES A DAY NEEDED FOR DIZZINESS. 90 tablet 03/23/20 25 Active meclizine (ANTIVERT) 12.5 mg tabletIndications: Vertigo TAKE 1 TABLET BY MOUTH 3 TIMES A DAY NEEDED FOR DIZZINESS. 90 tablet 01/20/20 25 025 Discontinued Active Problems Problem Noted Date Diagnosed Date Psoriatic arthritis 01/26/2025 Circadian rhythm sleep disorder, delayed sleep p hase type 03/23/2024 Assessment & Plan (03/23/2024 11:31 AM CDT): Delayed sleep phase handout with melatonin schedule to get the patient to goal of 10pm sleep onset, for 7am awakening. Wear sunglasses after 7pm in the home. Limit exposure to blue light sources in the evening, ie: TV, iPad, phone etc. Approximately 2 hours before anticipated sleep onset time. Recommend vending route servicer sunlight exposure to help with his circadian timing reset. Should be soon after awakening in the morning for best benefit. Restless legs syndrome 03/03/2024 Assessment & Plan (03/23/2024 11:34 AM CDT): Vs PLMS on the recent HST with leg monitor in the 1st half of the study. This patient does demonstrate early sleep cycle PLMs with arousal. Pre-test history suggests using SSRI, taking it in the evening and may be the cause to early am PLMs and subsequent awakenings. Recommend change in admin time of Prozac to mornings. Also consider SSRIs as etiology of PLMs and may benefit from alternative therapy including bupropion, Buspar or Remeron which do not have these side effects. Consider trial of pramipexole/ropinirole to asssist in control of PLMs. May need to reconsider the lexapro use in the future, can be a side effect. Will trial Requip 0.5mg nightly at 9pm. Iron deficiency 03/03/2024 Insomnia 02/16/2024 Assessment & Plan (03/23/2024 11:31 AM CDT): May be more delayed sleep phase. 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 Continue histamine blockers. Essential hypertension 08/20/2022 Assessment & Plan (01/26/2025 9:25 AM CDT): The blood pressure is elevated at home. Increasing the Bystolic to 10mg and may need 20mg. Salt intake needs to be restricted to keep the sodium level at less than 2000 mg a day. Regular exercise is also important and should be at least four days a week. Continue to manage your stress in a healthy way. Assessment & Plan (05/21/2023 3:13 PM CHEMIST INSTRUMENTATION): The blood pressure is elevated today. Ideally, I want it below 130/80. Will continue Amlodipine and Spironolactone and start Bystolic once daily. Let me know what your blood pressure is in one week. Salt intake needs to be restricted to keep the sodium level at less than 2000 mg a day. Regular exercise is also important and should be at least four days a week. Continue to manage your stress in a healthy way. Assessment & Plan (01/09/2023 10:45 AM CDT): Improved. Continue Spironolactone and Amlodipine. Moderate episode of recurrent major depressive d isorder 07/12/2022 Annual physical exam 06/10/2022 Assessment & Plan (01/26/2025 9:28 AM CDT): Follow-up 1 year for annual physical. Continue eating healthy. Limit processed foods like white starches, fast food, sweets and soda. Increase your vegetable intake and limit red meat. Continue exercising and wearing your seatbelt at all times. No texting and driving. Continue to manage your stress in a healthy manner. Assessment & Plan (06/10/2022 10:09 AM CHEMIST INSTRUMENTATION): Follow-up 1 year for annual physical. Continue eating healthy. Limit processed foods like white starches, fast food, sweets and soda. Increase your vegetable intake and limit red meat. Continue exercising and wearing your seatbelt at all times. No texting and driving. Continue to manage your stress in a healthy manner. Family history of arteriosclerotic cardiovascula r disease 06/10/2022 Overview (06/10/2022): Father had a IN in his thirties DDD (degenerative disc disease), lumbar 06/10/20 Chronic pain disorder 06/10/2022 Overview (06/10/2022): Pain management Jesusita Hannon NP Assessment & Plan (01/09/2023 10:45 AM CDT): Not controlled. Continue Butrans and Tramadol. Cyclical vomiting syndrome 06/10/2022 Overview (06/10/2022): GI Dr. Linton History of acute renal failure 06/10/2022 History of discitis 06/10/2022 History of endometriosis 06/10/2022 Polyarthritis 06/10/2022 Psoriasis 06/10/2022 Interstitial cystitis 06/10/2022 Overview (07/12/2022): She goes to [facility] to have procedures for this every few weeks Assessment & Plan (01/09/2023 10:46 AM CDT): Chronic and unchanged. Continue to monitor. Lumbar radiculopathy 06/10/2022 Assessment & Plan (01/26/2025 9:17 AM CDT): Worse. The left foot is completely numb. She has some loss of mobility in the left leg. Chronic pelvic pain in female 06/10/2022 Class 1 obesity due to exces s calories without serious comorbidity with body mass index (BMI) of 31.0 to 31.9 in adult 06/10/2022 Assessment & Plan (06/10/2022 1:51 PM CHEMIST INSTRUMENTATION): Try to cut back on calories. Most people should eat between 5244-0283 calories to lose weight. Decrease your carbohydrate intake to less than 150 grams per day if possible and increase protein to help with hunger. Increase activity to 30 min 4-5 days a week and add strength training 2 times weekly. If you need further help with weight loss please let me know. I would be happy to help. Former smoker 12/23/2014 Overview (10/03/2016): Ex smoker Arthralgia of hip 12/23/2014 Overview (10/03/2016): Hip pain Low back pain 12/23/2014 Overview (10/03/2016): Low back pain Encounters Date Type Department Care Team Description 03/03/2025 11:41 AM CDT - 03/03/2025 11:59 PM CDT Hospital Encounter [facility] [address] [place] [phone] Dizziness; Tingling sensation; Vision changes; New onset headache Discharge Disposition: Discharge to home or self care 03/03/2025 10:45 AM CDT - 03/03/2025 11:59 PM CDT Hospital Encounter [address] [phone] Jero Castaneda MD Discharge Disposition: Discharge to home or self care 03/03/2025 9:30 AM CDT Office Visit [facility] [address], [place] [phone] Caitlin Vivar NP Dizziness (Primary Dx); Tingling sensation; Vision changes; New onset headache 03/03/2025 Results Follow-Up [facility] [address], [place] [address] Head WO Contrast, CRP (acute phase), Erythrocyte sedimentation rate, Additional followed-up results: 7 01/27/2025 Results Follow-Up [facility] [address], [place] [address] Ama Ramirez NP Vitamin D 25 hydroxy, Hepatitis C antibody Blood, Hepatitis B Surface Antigen Blood, Additional followed-up results: 6 01/26/2025 4:21 PM CDT - 01/26/2025 11:59 PM CDT Hospital Encounter [address] [place] [address] Discharge Disposition: Discharge to home or self care 01/26/2025 9:42 AM CDT - 01/26/2025 11:59 PM CDT Hospital Encounter [address] [phone] Discharge Disposition: Discharge to home or self care 01/26/2025 9:00 AM CDT Office Visit [facility] [address] [place] [phone] Ama Ramirez NP Annual physical exam (Primary Dx); Chronic pain disorder; Degeneration of intervertebral disc of lumbar region with discogenic back pain and lower extremity pain; Essential hypertension; AMY (generalized anxiety disorder); Lumbar radiculopathy; Mast cell activation syndrome; Encounter for hepatitis C screening test for low risk patient; Need for hepatitis B screening test; Psoriatic arthritis (HCC); Moderate episode of recurrent major depressive disorder (HCC); Vitamin D deficiency from Last 3 Months Immunizations Immunization Administration Dates Next Due Influenza, Quadrivalent, Rec ombinant, Egg Free, Preservative Free, Intramuscular 06/05/2022 Influenza, Quadrivalent, Spl it, Preservative Free, Intramuscular 05/21/2023,06/25/2018,05/19/2016 Influenza, Trivalent, Cell C ulture-based MDCK, Preservative Free, Antibiotic Free, Intramuscular 04/22/2020 Influenza, Trivalent, Split, Preservative Free, Intradermal 05/17/2015 Influenza, Unspecified 07/22/2010 Surgical History Surgery Date Site/Laterality Comments SECTION section FL UPPER GI AIR CONTRAST W KUB 06/05/2017 Left BREAST BIOPSY 12/09/2016 Right LUMBAR DISCECTOMY 06/30/2017 - 06/29/2018 L4-L5 PARTIAL HYSTERECTOMY LEFT OOPHORECTOMY KNEE ARTHROSCOPY W/ LATERAL RELEASE 2000- 2013- 2015 COSMETIC SURGERY August 2006 SECTION August 2010 HYSTERECTOMY February 02, 2016 SPINE SURGERY Feb 2018- apr 2018- may 2018 TUBAL LIGATION August 30, 2010 BLADDER SURGERY Twice ABDOMINAL SURGERY 2013 Medical History Medical History Date Comments Hx Other Medical arthoscopic kne e surgrey Hx Other Medical breast reductio n Hx Other Medical Headache, migra ine Hx Other Medical L ovary removed 09-12-14.; Comments: [facility] 12/27/2014 - Hx Other Medical 1; Comments: [facility] 12/27/2014 - Hx Other Medical Tubal ligation 08-30-10.; Comments: [facility] 12/27/2014 - Hx Other Medical Breast reductio n 09-12-06.; Comments: [facility] 12/27/2014 - Hx Other Medical R knee arthrosc opy December 2000.; Comments: [facility] 12/27/2014 - GERD (gastroesophageal reflu x disease) September 2020 Anxiety 2003 Arthritis 2002-knee, 2006-back , hips Osteoporosis 2018 Brain concussion 2001 Depression 2003 Dysmenorrhea 2000 Migraines 2000 Hypertension 2004 on and off Chronic kidney disease 2018 Neuromuscular disorder Always- 2002 Peptic ulceration Found in 2020 Autoimmune disease 2008 Infection [id number] Menstrual problem 1996 Family History Medical History Relation Name Comments Cancer Brother 1 Keith [place] Learning disabilities Brother 1 Keith [place] Cancer Brother 2 Julián [place] Stroke Brother 2 Julián [place] Anemia Daughter 1 Shanice Navarrete Asthma Daughter 1 Shanice Navarrete Learning disabilities Daughter 1 Shanice Navarrete Asthma Daughter 2 Amanda Navarrete Learning disabilities Daughter 3 Madbernadette Navarrete COPD Father David [place] Diabetes Father David [place] Diabetes melli tus; Early Father David [place] Hearing loss Father David Zahida Heart attack Father David [place] Hypertension Father David Zahida Hypertension; Kidney disease Father David Zahida Vision loss Father David [place] Arthritis Maternal Grandmother Lakia Verdict Cancer Maternal Grandmother Lakia Verdict Allergy (severe) Mother Shante Waltersamy Anemia Mother Shantemary Waltersamy Arthritis Mother Shante [place] Asthma Mother Shante Waltersamy Bleeding Disorder Mother Shantemary Waltersamy Depression Mother Shante Zahida Hypertension Mother Shantemary Teague Hypertension ; Memory loss Mother Shante Teague Mental illness Mother Shante Teague Migraines Mother Shante Teague Migraine; Obesity Mother Shante Teague Cancer Mother's Sister 1 Evy Simon Diabetes Mother's Sister 1 Evy Simon Obesity Mother's Sister 1 Evy Simon Obesity Mother's Sister 2 Sherley Hannon Other Other 1 Family history of Cancer, brain; Other Other 2 Family history of diabetes, heart disease, kidney disease, hypertension cancer and arthritis.; Diabetes Paternal Grandfather Scott Teague Heart disease Paternal Grandfather Scott Teague Vision loss Paternal Grandfather Scott Teague Arthritis Paternal Grandmother Mary Contreras Heart disease Paternal Grandmother Mary Contreras Stroke Paternal Grandmother Mary Contreras Relation Name Status Comments Brother 1 Keith Zahida Brother 2 Julián [place] Daughter 1 Shanice Navarrete Daughter 2 Amanda Navarrete Daughter 3 Vlad Navarrete Father David Waltersamy Maternal Grandmother Lakia Verdict Mother Shante Teague Alive Mother's Sister 1 Evy Simon Mother's Sister 2 Sherley Hannon Other 1 Other 2 Paternal Grandfather Scott Teague Paternal Grandmother Mary Contreras Social History Tobacco Use Types Packs/Day Years Used Date Smoking Tobacco: Every Day Cigarettes 0.4 4.1 Started: 03/04/2021 Smokeless Tobacco: Never Tobacco Cessation:Ready to Q uit: Not Asked; Counseling Given: Not Answered Comments:Smoking History Packs/day: 0.5 Packs Alcohol Use Standard Drinks/Week Comments No 0 (1 standard drink = 0.6 oz pur e alcohol) PHQ-2 Answer Date Recorded PHQ-2 Total Score (If total score is 3 or more points, staff should administer the PHQ-9) 0 03/03/2025 Comments No Sex and Gender Information Value Date Recorded Sex Assigned at Not on file Legal Sex Female 2:39 PM CHEMIST INSTRUMENTATION Gender Identity Female 10/02/2023 5:09 PM CDT Sexual Orientation Straight 10/02/2023 5: 09 PM CDT Obstetrics History Last Filed Vital Signs Vital Sign Reading Time Taken Comments Blood Pressure 132/80 03/03/2025 9:50 AM CDT Pulse 76 03/03/2025 9:24 AM CDT Temperature 36.9 C (98.5 F) 03/03/2025 9:24 AM CDT Respiratory Rate 19 03/23/2024 10:52 AM CDT Oxygen Saturation 99% 03/03/2025 9:24 AM CDT Inhaled Oxygen Concentration - - Weight 83.6 kg (184 lb 6.4 oz) 03/03/2025 9:24 A M CDT Height 162.6 cm (5' 4) 03/03/2025 9:24 AM CDT Body Mass Index 31.65 03/03/2025 9:24 AM CDT Plan of Treatment Health Maintenance Due Date Last Done Comments DTaP/Tdap/Td Vaccine (1 - Tdap) 02/02/1995 Varicella Vaccines (1 of 2 - 13+ 2-dose series) 02/02/1997 Hepatitis B Screening 02/02/2002 Pneumococcal vaccine <65 (1 of 2 - PCV) 02/02/2003 HPV Vaccines (1 - 3-dose SCD M series) 02/02/2011 Covid-19 Vaccine (3 - 2024-2 6 season) 2025 07/27/2021, 10/05/2020 Influenza Vaccine (#1) 2025 , 06/05/2022, 04/22/2020, Additional history exists Regular Well Visit/Exam 18-64 01/26/2026 01/26/2025, 06/10/2022 Breast Cancer Screening-Mammogram 02/14/2026 02/14/2025, 02/14/2025, 03/17/2023, Additional history exists Depression Screening 03/03/2026 03/03/2025, 01/26/2025, 05/21/2023, Additional history exists Hepatitis C Screening Completed 01/26/2025 Procedures Procedure Name Priority Date/Time Associated Diagnosis Comments CT HEAD WO CONTRAST Schedule MADELYN, Read MADELYN (Appt Today, Awaiting Results) 03/03/2025 12:05 PM CDT Dizziness Tingling sensation Vision changes New onset headache URINALYSIS AND REFLEX TO MICROSCOPIC AND CULTURE Routine 03/03/2025 10:10 AM CDT Dizziness Tingling sensation Vision changes New onset headache EGFR Routine 03/03/2025 9:58 AM CDT Dizziness Tingling sensation Vision changes New onset headache DIFFERENTIAL AUTO Routine 03/03/2025 9:5 8 AM CDT Dizziness Tingling sensation Vision changes New onset headache CBC WITH AUTO DIFFERENTIAL Routine 03/03/2025 9:58 AM CDT Dizziness Tingling sensation Vision changes New onset headache COMPREHENSIVE METABOLIC PANEL Routine 03/03/2025 9:58 AM CDT Dizziness Tingling sensation Vision changes New onset headache VITAMIN B12 Routine 03/03/2025 9:58 AM CDT Dizziness Tingling sensation Vision changes New onset headache THYROID FUNCTION CASCADE Routine 03/03/2025 9:58 AM CDT Dizziness Tingling sensation Vision changes New onset headache ERYTHROCYTE SEDIMENTATION RATE Routine 03/03/2025 9:58 AM CDT Dizziness Tingling sensation Vision changes New onset headache CRP (ACUTE PHASE) Routine 03/03/2025 9:5 8 AM CDT Dizziness Tingling sensation Vision changes New onset headache EGFR Routine 01/26/2025 9:32 AM CDT Annual physical exam Essential hypertension DIFFERENTIAL AUTO Routine 01/26/2025 9:3 2 AM CDT Annual physical exam CBC WITH AUTO DIFFERENTIAL Routine 01/26/2025 9:32 AM CDT Annual physical exam COMPREHENSIVE METABOLIC PANEL Routine 01/26/2025 9:32 AM CDT Annual physical exam Essential hypertension LIPID PANEL Routine 01/26/2025 9:32 AM CDT Annual physical exam TSH Routine 01/26/2025 9:32 AM CDT Annual physical exam VITAMIN D 25 HYDROXY Routine 01/26/2025 9:32 AM CDT Vitamin D deficiency HEPATITIS B SURFACE ANTIGEN Routine 01/26/2025 9:32 AM CDT Need for hepatitis B screening test HEPATITIS C ANTIBODY Routine 01/26/2025 9:32 AM CDT Encounter for hepatitis C screening test for low risk patient SCREENING MAMMOGRAM Routine 11/17/2012 1 1:28 AM CDT from Last 3 Months or Most Recently Relevant to Health Maintenance Results * CT Head WO Contrast (03/03/2025 12:05 PM CDT) Anatomical Region Laterality Modality Head and Neck N/A Computed Tomogra phy 03/03/2025 12:4 0 PM CDT Impressions 03/03/2025 12:40 PM CDT No acute intracranial abnormality. Electronically signed by: Ramon Hanson M.D. Narrative 03/03/2025 12:40 PM CDT EXAMINATION: CT head without contrast HISTORY: New onset headache. TECHNIQUE: CT of the head was performed with images acquired from skull base to vertex without intravenous contrast. COMPARISON: MRI brain dated 07/18/2011. FINDINGS: There is no acute intracranial hemorrhage. There is slight asymmetry in the left lateral ventricle that is unchanged compared with prior MRI brain dated 07/18/2011 and likely congenital. Otherwise, the ventricles and cortical sulci are normal in size and configuration. No mass effect or midline shift is present. The carranza-white matter differentiation is normal. The visualized portions of the orbits are normal. The visualized portions of the mastoids are normal. The visualized portions of the paranasal sinuses are normal. No fractures are identified. Procedure Note Ramon Hanson MD - 03/03/2025 EXAMINATION: CT head without contrast HISTORY: New onset headache. TECHNIQUE: CT of the head was performed with images acquired from skull base to vertex without intravenous contrast. COMPARISON: MRI brain dated 07/18/2011. FINDINGS: There is no acute intracranial hemorrhage. There is slight asymmetry in the left lateral ventricle that is unchanged compared with prior MRI brain dated 07/18/2011 and likely congenital. Otherwise, the ventricles and cortical sulci are normal in size and configuration. No mass effect or midline shift is present. The carranza-white matter differentiation is normal. The visualized portions of the orbits are normal. The visualized portions of the mastoids are normal. The visualized portions of the paranasal sinuses are normal. No fractures are identified. IMPRESSION: No acute intracranial abnormality. Electronically signed by: Ramon Hanson M.D. Caitlin Vivar NP IMG CT PROCEDURES Final Result * Urinalysis reflex to microscopic and culture Urine, clean voided (03/03/2025 10:10 AM CDT) Color, ur Yellow Yellow Clarity, ur Clear Clear [facility] Specific gravity, ur 1.009 1.003 - 1.030 [facility] pH, urine 6.0 [facility] Comment: Interpretive Data U rine pH is affected by diet, medications, systemic acid-base disturbances, and renal tubular function. pH may affect urinary stone formation. For example, urine pH below 6.0 may help reduce the tendency for calcium phosphate stones and pH greater than 6.0 may reduce the tendency for uric acid stone formation. Source: [facility] Current Interpretive Data was last revised on 2017 Protein, ur ql Negative Negative [facility] Glucose, ur ql Negative Negative [facility] Ketones, ur Negative Negative [facility] Bilirubin, ur Negative Negative [facility] Blood, ur Negative Negative [facility] Urobilinogen, ur <2.0 <2.0 mg/dL [facility] Nitrite, ur Negative Negative [facility] Leukocyte esterase, ur Negative Negative [facility] UA reflex comment Reflex conditions for microscopic UA and culture not met. [facility] Urine, clean voided 03/03/2025 10:10 AM CDT 03/03/2025 10:10 AM CDT Caitlin Vivar NP LAB MICROBIOLOGY - GENERAL ORDER GAGE Final Result Performing Organization Address City/[facility] Co de Phone Number [facility] [address] Department of Laboratories [place], [place] [id number] * eGFR (03/03/2025 9:58 AM CDT) eGFR >90 >=60 mL/min/1. 73 m2 Comment: Interpretive Data Reference Interval Normal >/= 90 mL/min/1.73m2 Mildly decreased* 60 - 89 mL/min/1.73m2 Mildly to moderately decreased 45 - 59 mL/min/1.73m2 Moderately to severely decreased 30 - 44 mL/min/1.73m2 Severely decreased 15 - 29 mL/min/1.73m2 Kidney Failure < 15 mL/min/1.73m2 *Relative to young adult level Estimated glomerular filtration rate is determined by the 2020 CKD-EPI equation recommended by the National [employer] (A Unifying Approach to GFR Estimation: Recommendations of the NKF-ASK Task Force on Reassessing the Inclusion of Race in Diagnosing Kidney Disease, JASN 2020). The CKD-EPI equation should not be used for patients with unstable renal function and has not been validated in children and those over 70. Current interpretive data was last reviewed 2021. Blood 03/03/2025 9:58 AM CDT 03/03/2025 3:36 PM CDT Caitlin Vivar BIAZZI NITRATOR OPERATOR LAB BLOOD ORDERABLES Final Resul t Performing Organization Address City/[facility]/ZIP Co de Phone Number [facility] [address] [place] [address] * (ABNORMAL) Differential, auto (03/03/2025 9:58 AM CDT) Pathologist [facility] Neutrophil abs 9.55(H) 1.50 - 6.50 K/cumm Imm gran abs 0.07 0.00 - 0.10 K/cumm [facility] Lymphocyte abs 4.08(H) 0.80 - 3.30 K/cumm [facility] Monocyte abs 1.07(H) 0.20 - 0.80 K/cumm [facility] Eosinophil abs 0.44 0.00 - 0.50 K/cumm [facility] Basophil abs 0.08 0.00 - 0.10 K/cumm [facility] Neutrophil pct 62.4 % [facility] Comment: Interpretive Data Percent cell count reference ranges are not reported, since discordance with absolute values may lead to misinterpretation of CBC data. Current Interpretive Data was last revised on 2017. Imm gran pct 0.5 % [facility] Comment: Interpretive Data Percent cell count reference ranges are not reported, since discordance with absolute values may lead to misinterpretation of CBC data. Current Interpretive Data was last revised on 2017. Lymphocyte pct 26.7 % [facility] Comment: Interpretive Data Percent cell count reference ranges are not reported, since discordance with absolute values may lead to misinterpretation of CBC data. Current Interpretive Data was last revised on 2017. Monocyte pct 7.0 % [facility] Comment: Interpretive Data Percent cell count reference ranges are not reported, since discordance with absolute values may lead to misinterpretation of CBC data. Current Interpretive Data was last revised on 2017. Eosinophil pct 2.9 % [facility] Comment: Interpretive Data Percent cell count reference ranges are not reported, since discordance with absolute values may lead to misinterpretation of CBC data. Current Interpretive Data was last revised on 2017. Basophil pct 0.5 % [facility] Comment: Interpretive Data Percent cell count reference ranges are not reported, since discordance with absolute values may lead to misinterpretation of CBC data. Current Interpretive Data was last revised on 2017. Blood 03/03/2025 9:58 AM CDT 03/03/2025 3:36 PM CDT us Caitlin Vivar NP LAB BLOOD ORDERABLES Final Resul t [facility] [address] [place] [address] * Thyroid Function [place] (03/03/2025 9:58 AM CDT) Pathologist [facility] TSH 1.03 0.30 - 4.20 mcIUnit/mL Blood 03/03/2025 9:58 AM CDT 03/03/2025 3:36 PM CDT Caitlin Ghazala BIAZZI NITRATOR OPERATOR LAB BLOOD ORDERABLES Final Resul t Performing Organization Address [facility] Co de Phone Number [facility] [address] [facility] [place], [place] [id number] * (ABNORMAL) CBC with auto differential (03/03/2025 9:58 AM CDT) [facility] WBC 15.29(H) 3.80 - 9.90 K/cumm Hgb 14.5 11.9 - 15.5 g/dL [facility] Hct 43.1 35.6 - 45.5 % [facility] Plt 426(H) 150 - 400 K/cumm [facility] MPV 9.9 9.1 - 12.3 fL [facility] RBC 4.66 3.90 - 5.20 M/cumm [facility] MCV 92.5 81.3 - 96.4 fL [facility] MCH 31.1 27.1 - 33.3 pg [facility] MCHC 33.6 32.3 - 35.7 g/dL [facility] RDW CV 14.5 11.1 - 14.9 % [facility] RDW SD 48.9(H) 35.7 - 48.1 fL [facility] NRBC abs 0.00 0.00 - 0.01 K/cumm [facility] Blood 03/03/2025 9:58 AM CDT 03/03/2025 3:36 PM CDT Caitlin Vivar BIAZZI NITRATOR OPERATOR LAB BLOOD ORDERABLES Final Resul t Performing Organization Address [facility]/ZIP Co de Phone Number [facility] [address] Department [employer] [place], [place] [id number] * Erythrocyte sedimentation rate (03/03/2025 9:58 AM CDT) Erythrocyte sedimentation rate 10 1 - 20 mm/hr Blood 03/03/2025 9:58 AM CDT 03/03/2025 3:36 PM CDT [facility] BIAZZI NITRATOR OPERATOR LAB BLOOD ORDERABLES Final Resul t Performing Organization Address City/[facility] Co de Phone Number [facility] [address] [facility] [place] [address] * (ABNORMAL) CRP (acute phase) (03/03/2025 9:58 AM CDT) Pathologist [facility] CRP 10.2(H) <=10.0 mg/L Blood 03/03/2025 9:58 AM CDT 03/03/2025 3:36 PM CDT [facility] LAB BLOOD ORDERABLES Final Resul t Performing Organization Address [facility] de Phone Number [facility] [address] [facility] [place], [place] [id number] * Vitamin B12 (03/03/2025 9:58 AM CDT) Pathologist [facility] Vitamin B12 280 230 - 1,250 pg/mL Blood 03/03/2025 9:58 AM CDT 03/03/2025 3:36 PM CDT [facility] LAB BLOOD ORDERABLES Final Resul t Performing Organization Address [facility] de Phone Number [facility] [address] [facility] [place], [place] [id number] * Comprehensive metabolic panel (03/03/2025 9:58 AM CDT) Pathologist [facility] Sodium 140 135 - 145 mmol/L Potassium, pl 4.0 3.3 - 4.9 mmol/L [facility] Chloride 105 97 - 110 mmol/L [facility] CO2 22 22 - 32 mmol/L [facility] Anion gap 13 2 - 15 mmol/L [facility] BUN 8 6 - 25 mg/dL [facility] Creatinine 0.68 0.60 - 1.10 mg/dL [facility] Glucose 92 70 - 199 mg/dL [facility] Comment: Interpretive Data Fasting glucose >/= 126 mg/dl is diagnostic for diabetes. Fasting is defined as no caloric intake for at least 8 hours. Fasting glucose between 100 mg/dl to 125 mg/dl is diagnostic of prediabetes. In a patient with classic symptoms of hyperglycemia or hyperglycemic crisis, a random glucose >/= 200 mg/dl is diagnostic for diabetes. In the absence of unequivocal hyperglycemia, results should be confirmed by repeat testing. The classification and Diagnosis of Diabetes Diabetes Care 202; 46: S19-S40. Current interpretive data was last revised 2022. Calcium 9.8 8.5 - 10.3 mg/dL [facility] Bilirubin, total 0.3 0.1 - 1.2 mg/dL [facility] Protein, pl 7.3 6.5 - 8.5 g/dL [facility] Albumin 4.3 3.5 - 5.0 g/dL [facility] Alk phos 61 40 - 130 Units/L [facility] ALT 29 7 - 45 Units/L [facility] AST 20 10 - 45 Units/L [facility] Blood 03/03/2025 9:58 AM CDT 03/03/2025 3:36 PM CDT us Caitlin Vivar NP LAB BLOOD ORDERABLES Final Resul t [facility] [address] [place] [address] * eGFR (01/26/2025 9:32 AM CDT) eGFR >90 >=60 mL/min/1. 73 m2 Comment: Interpretive Data Reference Interval Normal >/= 90 mL/min/1.73m2 Mildly decreased* 60 - 89 mL/min/1.73m2 Mildly to moderately decreased 45 - 59 mL/min/1.73m2 Moderately to severely decreased 30 - 44 mL/min/1.73m2 Severely decreased 15 - 29 mL/min/1.73m2 Kidney Failure < 15 mL/min/1.73m2 *Relative to young adult level Estimated glomerular filtration rate is determined by the 2020 CKD-EPI equation recommended by the National Kidney [employer] (A Unifying Approach to GFR Estimation: Recommendations of the NKF-ASK Task Force on Reassessing the Inclusion of Race in Diagnosing Kidney Disease, JASN 2020). The CKD-EPI equation should not be used for patients with unstable renal function and has not been validated in children and those over 70. Current interpretive data was last reviewed 2021. Blood 01/26/2025 9:32 AM CDT 01/26/2025 3:49 PM CDT us Ama Ramirez BIAZZI NITRATOR OPERATOR LAB BLOOD ORDERABLES Final Res ult [facility] [address] [place] [address] * (ABNORMAL) Differential, auto (01/26/2025 9:32 AM CDT) Neutrophil abs 5.81 1.50 - 6.50 K/cumm Imm gran abs 0.03 0.00 - 0.10 K/cumm [facility] Lymphocyte abs 4.17(H) 0.80 - 3.30 K/cumm [facility] Monocyte abs 0.68 0.20 - 0.80 K/cumm [facility] Eosinophil abs 0.18 0.00 - 0.50 K/cumm [facility] Basophil abs 0.05 0.00 - 0.10 K/cumm [facility] Neutrophil pct 53.2 % [facility] Comment: Interpretive Data Percent cell count reference ranges are not reported, since discordance with absolute values may lead to misinterpretation of CBC data. Current Interpretive Data was last revised on 2017. Imm gran pct 0.3 % [facility] Comment: Interpretive Data Percent cell count reference ranges are not reported, since discordance with absolute values may lead to misinterpretation of CBC data. Current Interpretive Data was last revised on 2017. Lymphocyte pct 38.2 % [facility] Comment: Interpretive Data Percent cell count reference ranges are not reported, since discordance with absolute values may lead to misinterpretation of CBC data. Current Interpretive Data was last revised on 2017. Monocyte pct 6.2 % [facility] Comment: Interpretive Data Percent cell count reference ranges are not reported, since discordance with absolute values may lead to misinterpretation of CBC data. Current Interpretive Data was last revised on 2017. Eosinophil pct 1.6 % [facility] Comment: Interpretive Data Percent cell count reference ranges are not reported, since discordance with absolute values may lead to misinterpretation of CBC data. Current Interpretive Data was last revised on 2017. Basophil pct 0.5 % [facility] Comment: Interpretive Data Percent cell count reference ranges are not reported, since discordance with absolute values may lead to misinterpretation of CBC data. Current Interpretive Data was last revised on 2017. Blood 01/26/2025 9:32 AM CDT 01/26/2025 3:49 PM CDT Ama Ramirez BIAZZI NITRATOR OPERATOR LAB BLOOD ORDERABLES Final Res ult [facility] [address] [place] [address] * (ABNORMAL) CBC with auto differential (01/26/2025 9:32 AM CDT) WBC 10.92(H) 3.80 - 9.90 K/cumm Hgb 14.3 11.9 - 15.5 g/dL [facility] Hct 42.7 35.6 - 45.5 % [facility] Plt 357 150 - 400 K/cumm [facility] MPV 10.0 9.1 - 12.3 fL [facility] RBC 4.59 3.90 - 5.20 M/cumm [facility] MCV 93.0 81.3 - 96.4 fL [facility] MCH 31.2 27.1 - 33.3 pg [facility] MCHC 33.5 32.3 - 35.7 g/dL [facility] RDW CV 14.9 11.1 - 14.9 % [facility] RDW SD 51.5(H) 35.7 - 48.1 fL [facility] NRBC abs 0.00 0.00 - 0.01 K/cumm [facility] Blood 01/26/2025 9:32 AM CDT 01/26/2025 3:49 PM CDT us Ama Ramirez NP LAB BLOOD ORDERABLES Final Res ult Performing Organization Address [facility] Co de Phone Number [facility] [address] [place] [address] * Hepatitis C antibody Blood (01/26/2025 9:32 AM CDT) Pathologist [facility] Hep C Ab Nonreactive Nonreactive Comment: Interpretive Data Nonreactive: Antibodies to HCV not detected. Does NOT exclude the possibility of recent exposure to HCV. Equivocal: Equivocal for HCV antibodies. Supplemental molecular testing will be automatically performed to determine infection status in accordance with current CDC screening recommendations. Reactive: Positive for HCV antibodies. This may represent current or past HCV infection. Supplemental molecular testing will be automatically performed to determine current infection status in accordance with current CDC screening recommendations. Interpretive data was last revised on 2019. Blood 01/26/2025 9:32 AM CDT 01/26/2025 3:48 PM CDT us Ama Ramirez NP LAB MICROBIOLOGY - GENERAL ORD ERABLES Final Result Performing Organization Address City/[facility]/ZIP Co de Phone Number [facility] [address] [place] [address] * Vitamin D 25 hydroxy (01/26/2025 9:32 AM CDT) Vitamin D 25-OH 47 30 - 80 ng/mL Blood 01/26/2025 9:32 AM CDT 01/26/2025 3:49 PM CDT us Ama Ramirez BIAZZI NITRATOR OPERATOR LAB BLOOD ORDERABLES Final Res ult Performing Organization Address [facility] Co de Phone Number [facility] [address] [facility] [place] [address] * Hepatitis B Surface Antigen Blood (01/26/2025 9:32 AM CDT) HepBsAg Nonreactive Nonreactive Blood 01/26/2025 9:32 AM CDT 01/26/2025 3:48 PM CDT us Ama Ramirez NP LAB MICROBIOLOGY - GENERAL ORD ERABLES Final Result Performing Organization Address [facility] Co de Phone Number [facility] [address] [place] [address] * TSH (01/26/2025 9:32 AM CDT) Thyroid Stimulating Hormone 0.93 0.30 - 4.20 mcIUnit/mL Blood 01/26/2025 9:32 AM CDT 01/26/2025 3:49 PM CDT us Ama Ramirez BIAZZI NITRATOR OPERATOR LAB BLOOD ORDERABLES Final Res ult Performing Organization Address [facility] Co de Phone Number [facility] [address] [place] [address] * (ABNORMAL) Lipid panel (01/26/2025 9:32 AM CDT) Cholesterol 271(H) 30 - 199 mg/dL Comment: Interpretive Data Ages < or = 19 years Acceptable: <170 mg/dL Borderline high: 170-199 mg/dL High: >or= 200 mg/dL Ages > or = 20 years Desirable: <200 mg/dL Borderline high: 200-239 mg/dL High: >or= 240 mg/dL Literature References: 1. Expert Panel on Integrated Guidelines for Cardiovascular Health and Risk Reduction in Children and Adolescents. Pediatrics 2011;128:S213 2. NCEP Expert Panel. Circulation 2004;110:227 Current Interpretive Data was last revised on 2018. Triglycerides 310(H) <=149 mg/dL [facility] Comment: Interpretive Data Ages < or = 9 years Acceptable: <75 mg/dL Borderline high: 75-99 mg/dL High: >or= 100 mg/dL Ages 10 to 20 years Acceptable: <90 mg/dL Borderline high: 90-129 mg/dL High: >or= 130 mg/dL Ages > or = 20 years Desirable: <150 mg/dL Borderline high: 150-199 mg/dL High: 200-499 mg/dL Very high: >or= 499 mg/dL Literature References: 1. Expert Panel on Integrated Guidelines for Cardiovascular Health and Risk Reduction in Children and Adolescents. Pediatrics 2011;128:S213 2. NCEP Expert Panel. Circulation 2004;110:227 Current Interpretive Data was last revised on 2018. HDL 53 >=40 mg/dL [facility] Comment: Interpretive Data Ages < or = 19 years Acceptable: >45 mg/dL Borderline low: 40-45 mg/dL Low: <40 mg/dL Ages > or = 20 years Desirable: >or= 60 mg/dL Low: <40 mg/dL Literature References: 1. Expert Panel on Integrated Guidelines for Cardiovascular Health and Risk Reduction in Children and Adolescents. Pediatrics 2011;128:S213 2. NCEP Expert Panel. Circulation 2004;110:227 Current Interpretive Data was last revised on 2018. LDL, calculated 160(H) <=129 mg/dL [facility] Comment: Interpretive Data Ages < or = 19 years Acceptable: <110 mg/dL Borderline high: 110-129 mg/dL High: >or= 130 mg/dL Ages > or = 20 years Optimal: <100 mg/dL Near optimal: 100-129 mg/dL Borderline high: 130-159 mg/dL High: >160 mg/dL Calculated using the Junior LDL-C estimating equation. This equation was implemented on 2024. Prior to this date LDL-C was estimated using the Friedewald equation. Literature References: 1. Expert Panel on Integrated Guidelines for Cardiovascular Health and Risk Reduction in Children and Adolescents. Pediatrics 2011;128:S213 2. NCEP Expert Panel. Circulation 2004;110:227 3. Vernon M et al. RYLEE Cardiol. 2020 October 28;5(5):540-548. doi: 10.1001/[email or web address] Current Interpretive Data was last revised on 2024. Non-HDL Cholesterol 218 mg/dL [facility] Comment: Interpretive Data Ages < or = 19 years Acceptable: <120 mg/dL Borderline high: 120-144 mg/dL High: >145 mg/dL Ages > or = 20 years When triglycerides are >200 mg/dL, Non-HDL cholesterol is a secondary target of therapy with treatment goals that are 30 mg/dL greater than the LDL cholesterol target. Literature References: 1. Expert Panel on Integrated Guidelines for Cardiovascular Health and Risk Reduction in Children and Adolescents. Pediatrics 2011;128:S213 2. NCEP Expert Panel. Circulation 2004;110:227 Current Interpretive Data was last revised on 2018. Chol/HDL ratio 5 [facility] Blood 01/26/2025 9:32 AM CDT 01/26/2025 3:49 PM CDT us Ama Ramirez BIAZZI NITRATOR OPERATOR LAB BLOOD ORDERABLES Final Res ult [facility] [address] [place] [address] * Comprehensive metabolic panel (01/26/2025 9:32 AM CDT) Sodium 137 135 - 145 mmol/L Potassium, pl 4.3 3.3 - 4.9 mmol/L [facility] Chloride 104 97 - 110 mmol/L [facility] CO2 22 22 - 32 mmol/L [facility] Anion gap 11 2 - 15 mmol/L [facility] BUN 9 6 - 25 mg/dL [facility] Creatinine 0.78 0.60 - 1.10 mg/dL [facility] Glucose 91 70 - 199 mg/dL [facility] Comment: Interpretive Data Fasting glucose >/= 126 mg/dl is diagnostic for diabetes. Fasting is defined as no caloric intake for at least 8 hours. Fasting glucose between 100 mg/dl to 125 mg/dl is diagnostic of prediabetes. In a patient with classic symptoms of hyperglycemia or hyperglycemic crisis, a random glucose >/= 200 mg/dl is diagnostic for diabetes. In the absence of unequivocal hyperglycemia, results should be confirmed by repeat testing. The classification and Diagnosis of Diabetes Diabetes Care 2021; 46: S19-S40. Current interpretive data was last revised 2022. Calcium 9.7 8.5 - 10.3 mg/dL [facility] Bilirubin, total 0.2 0.1 - 1.2 mg/dL [facility] Protein, pl 6.7 6.5 - 8.5 g/dL [facility] Albumin 4.1 3.5 - 5.0 g/dL [facility] Alk phos 54 40 - 130 Units/L [facility] ALT 30 7 - 45 Units/L [facility] AST 27 10 - 45 Units/L [facility] Comment:Slightly Hemolyzed S pecimen Blood 01/26/2025 9:32 AM CDT 01/26/2025 3:49 PM CDT us Ama Ramirez BIAZZI NITRATOR OPERATOR LAB BLOOD ORDERABLES Final Res ult [facility] [address] [place] [address] from Last 3 Months Insurance [facility] Care Teams Tax Investigator Relationship Specialty Start Date End Date Ama Ramirez NP [address] [address] PCP - General Internal Medicine 06/10/22
--- OUTSIDE RECORDS SUMMARY | 2025-04-20 10:42 | XMS_ITS | Clinical Summary ---
Author Organization [facility] [employer] Address [address] [place] [address] Care Team Providers Care Garbage Collection Supervisor Name Role Phone Ashley Ama Floyd APRN-ASSET PROTECTION MANAGER Primary Care Provider [phone] Clifton Moreno MD Unavailable Hawa Villarreal APRN-ASSET PROTECTION MANAGER Unavailable [phone] Rissa Mercer MD Unavailable Source Comments [facility],non-owned Affiliates and Associated Physician Practices is amultiple site organization consisting of ambulatory clinics and hospital sitesin [place], [place], [place] and [place]. This disclosure is being madepursuant to the Care Everywhere program and may not contain all information available regarding this patient. Last updated 18.[facility] Allergies Active Allergy Reactions Criticality Noted Date Comments Adhesive Sensitivity Urticaria High 06/05/2016 Amoxicillin-Pot Clavulanate Rash Medium 06/12/2020 Metoclopramide Dizziness,Myalgias,S hortness of Breath,Swelling,Syst emic,OFFICE CLERK ROUTINE Dysfunction High 10/19/2018 Other reaction(s): Dystonia Penicillins Urticaria Medium 10/19/2024 Sulfamethoxazole W-Trimethoprim Urticaria,Rash Medium 06/12/2020 Medications * Be aware that medications may not be up to date on this document. Alwaysverify current medications with the patient. tiZANidine (ZANAFLEX) 4 MG tablet Take 1 (one) tablet by mouth every 8 hours as needed for Muscle Spasms Active ALPRAZolam (XANAX) 1 MG tablet Take 1 (one) tablet by mouth 3 times daily as needed 9 Active ondansetron, disintegrating, (ZOFRAN ODT) 8 MG tablet 0 Active Quercetin 500 MG CAPS Take 1 tablet by mouth 2 times daily Active spironolactone (Aldactone) 50 MG tablet Take 1 (one) tablet by mouth once daily 3 Active buPROPion XL 24hr (Wellbutrin-XL) 300 MG tablet Take 1 (one) tablet by mouth once daily 3 Active amLODIPine (Norvasc) 5 MG tablet Take 1 (one) tablet by mouth once daily Active escitalopram (Lexapro) 10 MG tablet Take 1 (one) tablet by mouth once daily 3 Active vitamin D, ergocalciferol, (Drisdol) 1.25 MG (43719 UT) capsule Take 1 (one) capsule by mouth every 7 days (once a week) Active ascorbic acid (Vitamin C) 250 MG tablet Take 1 (one) tablet by mouth once daily Active folic acid (Folvite) 1 MG tablet Take 1 (one) tablet by mouth once daily 90 tablet 4 4 Active montelukast (Singulair) 10 MG tablet Take 1 (one) tablet by mouth every evening 30 tablet 6 5 Active famotidine (Pepcid) 20 MG tablet Take 1 (one) tablet by mouth 2 times daily 60 tablet 6 5 Active levocetirizine (Xyzal) 5 MG tablet Take 1 (one) tablet by mouth 2 times daily 60 tablet 6 5 Active tofacitinib 24hr (Xeljanz XR) 11 MG tabletIndications :Psoriatic arthritis (HCC) TAKE 1 TABLET (11 MG) BY MOUTH ONE TIME DAILY 30 tablet 3 5 Active atorvastatin (Lipitor) 10 MG tablet Take 1 (one) tablet by mouth once daily 5 01/28/20 26 Active baclofen (Lioresal) 10 MG tablet Take 1 (one) tablet by mouth 2 times daily as needed 5 Active celecoxib (CeleBREX) 200 MG capsule Take 1 (one) capsule by mouth once daily 5 Active meclizine (Antivert) 12.5 MG tablet TAKE 1 TABLET BY MOUTH 3 TIMES A DAY NEEDED FOR DIZZINESS. 5 Active nortriptyline (Pamelor) 10 MG capsule TAKE 1 CAPSULE (10 MG TOTAL) BY MOUTH NIGHTLY. Active rOPINIRole (Requip) 0.5 MG tablet Take 1 (one) tablet by mouth at bedtime 4 Active nebivolol (Bystolic) 10 MG tablet Take 1 (one) tablet by mouth once daily 5 Active HYDROcodone-aceta minophen (Grafton) 5-325 MG tabletIndications :Lumbosacral radiculopathy Take 1 (one) tablet by mouth every 6 hours as needed for Pain 12 tablet 5 Active cyclobenzaprine (Flexeril) 10 MG tablet Take 1 (one) tablet by mouth 3 times daily as needed for Muscle Spasms 30 tablet 5 Active nebivolol (Bystolic) 5 MG tablet Take 1 (one) tablet by mouth once daily 3 03/29/20 25 Discontin ued(List Clean-Up) Varenicline Tartrate, Starter, (Chantix Starting Month ) 0.5 MG X 11 & 1 MG X 42 tablets Use as directed on package instructions , try to quit smoking after 1 week. 5 03/29/20 25 Discontin ued(List Clean-Up) Active Problems Problem Noted Date Diagnosed Date Cyclical vomiting syndrome 03/29/2021 Chronic constipation 03/29/2021 Duodenal ulcer 03/29/2021 Esophagitis 03/29/2021 Interstitial cystitis 01/30/2021 Endometriosis 10/19/2020 Chronic pelvic pain in female 10/19/2020 Myalgia of pelvic floor 10/19/2020 Dyspareunia, female 10/19/2020 Discitis of lumbosacral region 06/25/2018 Acute renal failure 06/24/2018 MSSA bacteremia 06/24/2018 Wound infection after surgery 06/09/2018 Lumbosacral radiculopathy 06/16/2017 Lumbar degenerative disc disease 07/26/2015 Migraine 04/16/2011 Psoriasis 07/20/2010 Overview (07/20/2010): No meds Depression 07/20/2010 Overview (07/20/2010): Stable, no meds Tobacco use disorder 07/20/2010 Lumbar radiculopathy Resolved Problems Problem Noted Date Diagnosed Date Resolved Date Pain of left sacroiliac joint 11/07/2017 06/24/2018 Back pain with left-sided radiculopathy 11/04/2017 06/24/2018 Abnormal uterine bleeding (AUB) 02/01/2016 06/24/2018 Ear pain 04/16/2011 06/24/2018 labor 07/20/2010 06/24/2018 Current with histo ry of labor 07/20/2010 06/24/2018 Overview (07/20/2010): Had tPTL with previous but delivered at term. Thinks she took Procardia at one point. Supervision of other high-risk 07/20/2010 05/03/2021 Overview (05/07/2015): A+/I/-/-; HIV NR GCT 138 Dichorionic diamniotic twin gestation 07/20/2010 06/24/2018 Overview (07/20/2010): Clomid Concordant growth Encounters Date Type Department Care Team Description 04/08/2025 12:35 PM CDT Anesthesia Event [facility] [address] [place] [address] Laury Obando MD OsterloNatividad, INBOUND SALES MANAGER-OFFICE CLERK ROUTINE 04/08/2025 12:18 PM CDT - 04/08/2025 2:33 PM CDT Surgery [facility] [address] [place] [address] Prabhu Estevez MD T9-T10 laminectomy for placement of a spinal stimulation system and placement of the battery in the left lower lumbar region 04/08/2025 10:32 AM CDT - 04/08/2025 5:31 PM CDT Hospital Encounter [facility] [address] [place] [address] Prabhu Estevez MD Neurosurgery Discharge Disposition: Home or Self Care 04/08/2025 Lab Requisition [facility] MAIN LAB [address] [place] [address] Leeroy Walters, INBOUND SALES MANAGER-ASSET PROTECTION MANAGER 04/08/2025 Travel 03/29/2025 3:44 PM CDT - 03/29/2025 11:59 PM CDT Hospital Encounter [facility] DIAGNOSTIC RAD OP [address] [place] [address] Prabhu Estevez MD Discharge Disposition: Home or Self Care 03/29/2025 3:43 PM CDT Hospital Encounter [facility] DIAGNOSTIC RAD [address] [place] [address] Prabhu Estevez MD Discharge Disposition: Home or Self Care 03/29/2025 3:30 PM CDT - 03/29/2025 3:42 PM CDT Hospital Encounter [facility] LAB OP DRAW STATION [address] [place] [address] Discharge Disposition: Home or Self Care 03/29/2025 2:55 PM CDT - 03/29/2025 3:29 PM CDT Hospital Encounter [facility] [address] [place] [address] Prabhu Estevez MD Neurosurgery Discharge Disposition: Home or Self Care 03/29/2025 8:15 AM CDT - 03/29/2025 2:54 PM CDT Hospital Encounter [facility] EKG/HOLTER [address] [place] [address] Prabhu Estevez MD Discharge Disposition: Home or Self Care 03/29/2025 Travel 03/28/2025 Orders Only [facility] - Neurosurgery [address] [facility], [place] [address] Jose Moore RN Pre-op testing 03/14/2025 Telephone [facility] Neurosurgery [address] [place] [phone] Jose Moore RN General 03/11/2025 Travel 03/09/2025 Travel 02/14/2025 3:22 PM CDT - 02/14/2025 11:59 PM CDT Hospital Encounter [address] [address] Hawa Villarreal, INBOUND SALES MANAGER-[facility] Discharge Disposition: Home or Self Care 02/10/2025 Orders Only [facility] - Neurosurgery [address] [place] [address] Jose Moore RN Chronic thoracic back pain, unspecified back pain laterality 02/07/2025 11:42 AM CDT - 02/07/2025 11:59 PM CDT Hospital Encounter [facility] EKG/HOLTER [address] [place] [address] Prabhu Estevez MD Discharge Disposition: Home or Self Care 02/07/2025 11:06 AM CDT - 02/07/2025 11:41 AM CDT Hospital Encounter [facility] DIAGNOSTIC RAD OP [address] [place] [address] Prabhu Estevez MD Discharge Disposition: Home or Self Care 02/07/2025 11:05 AM CDT Hospital Encounter [facility] LAB OP [place]RAW [facility] [address] [place] [address] Prabhu Estevez MD Discharge Disposition: Home or Self Care 02/07/2025 10:30 AM CDT Office Visit [facility] Neurosurgery [address] [place] [phone] Prabhu Estevez MD Pre-op testing (Primary Dx) 02/07/2025 Travel 01/24/2025 Travel 01/21/2025 Orders Only [facility] - Rheumatology [address] [place] [address], [place] [address] Rissa Mercer MD Therapeutic drug monitoring 01/18/2025 Refill [facility] Rheumatology [address] [place] [address], [place] [address] Rissa Mercer MD Refill Request from Last 3 Months Immunizations Immunization Administration Dates Next Due INFLUENZA VACCINE 07/22/2010 INFLUENZA VACCINE, CELL CULT URE, QUADR. (FLUCELVAX QUADRIVALENT; 6MO+) (CCIIV4) 04/22/2020 INFLUENZA VACCINE, QUADR. (F LUZONE; FLULAVAL; FLUARIX; AFLURIA QUADRIVALENT; 6MO+), 0.5 ML (IIV4) 06/25/2018,05/19/2016 Influenza Intradermal 05/17/2015 iNFLUENZA VACCINE, RECOM-CHAPPELL, QUADR. (FLUBLOCK QUADRIVALENT; 18Y+) (RIV4) 06/05/2022 Family History Medical History Relation Name Comments Cancer Brother 1 Cancer Brother 2 Anesthesia Reaction Father CAD (Coronary Artery Disease) Father Diabetes Father Heart Failure Father Hypertension Father Renal Disease Father Arthritis - Osteo Maternal Grandmother Cancer Maternal Grandmother Asthma Mother Hypertension Mother Migraine Mother Diabetes Paternal Grandfather Arthritis - Rheumatoid Paternal Grandmother Cancer Paternal Grandmother Relation Name Status Comments Brother 1 Brother 2 Father Maternal Grandmother Mother Paternal Grandfather Paternal Grandmother Social History Tobacco Use Types Packs/Day Years Used Date Smoking Tobacco: Every Day Cigarettes 0.5 11 Started: 2004; Last attempted to quit: 2015 Smokeless Tobacco: Never Tobacco Cessation:Ready to Q uit: Not Asked; Counseling Given: Not Answered Comments:quit 3 years ago, restarted Alcohol Use Standard Drinks/Week Comments Yes 0 [...] AM CDT Legal Sex Female 12:38 PM SPINNER FRAME Gender Identity Female 10/16/2020 9:09 AM CDT Sexual Orientation Straight 10/16/2020 9: 09 AM CDT Last Filed Vital Signs Vital Sign Reading Time Taken Comments Blood Pressure 135/93 04/08/2025 5:00 PM CDT Pulse 78 04/08/2025 5:00 PM CDT Temperature 36.4 C (97.5 F) 04/08/2025 3:40 PM CDT Respiratory Rate 14 04/08/2025 5:00 PM CDT Oxygen Saturation 95% 04/08/2025 5:00 PM CDT Inhaled Oxygen Concentration - - Weight 83 kg (183 lb) 04/08/2025 11:36 AM CDT Height 162.6 cm (5' 4) 04/08/2025 11:36 AM CDT Body Mass Index 31.41 04/08/2025 11:36 AM CDT Plan of Treatment Upcoming Encounters Date Type Department Care Team (Late st Contact Info) Description 05/02/2025 8:00 AM SPINNER FRAME Office Visit [facility] - Neurosurgery [address] [place] [address], [place] [phone] Prabhu Estevez MD [address] [place] [address] [place] [address] Health Maintenance Due Date Last Done Comments DTAP/TDAP/TD VACCINES (1 - Tdap) 02/02/2003 HEPATITIS B VACCINE (1 of 3 - 19+ 3-dose series) 02/02/2003 PNEUMOCOCCAL VACCINE (1 of 2 - PCV) 02/02/2003 HPV VACCINE (1 - 3-dose SCDM series) 02/02/2011 COVID-19 VACCINE (2 - season) 2025 10/05/2020 INFLUENZA VACCINE (#1) 2025 , 06/05/2022, 04/22/2020, Additional history exists MAMMOGRAM 02/14/2027 02/14/2025, 02/28, 06/04/2017, Additional history exists SCREENING FOR DIABETES 03/29/2028 , 02/07/2025, 03/08/2021, Additional history exists ZOSTER VACCINE (1 of 2) 02/02/2034 DEPRESSION SCREENING Completed 09/09/2024, 09/10/2023, 06/05/2022 HEPATITIS C SCREENING Completed 04/08/2025 , 01/26/2025, 01/24/2015 HIV SCREENING Completed 04/08/2025 HIB VACCINE Aged Out No longer eligi ble based on patient's age to complete this topic MENINGOCOCCAL (Group B) VACCINE SHARED DECISION-MAKING Aged Out No longer eligible based on patient's age to complete this topic MENINGOCOCCAL GROUPS A/C/Y/W VACCINE Aged Out No longer eligible based on patient's age to complete this topic Goals Goal Patient Goal Type Associated Problems Recent Progress Patient-Stated? Author Medication Management General On track( 023 9:21 AM CDT) Helen Santana RN Note: Expected end date: ongoing Interventions: Take all medications as prescribed Let your doctor know right away about any changes in your medications Make sure to request a refill of your medication at least one week prior to your last dose Medical Devices Implanted Type Area Setup Technician Device Identifier Shelf Expiration Date Model / Serial / Lot Slnt Dura Duraseal Pg Trilysine Amine 5 Implanted:Qty: 1 on 04/08/2025 by Prabhu Estevez MD at [facility] Left: Spine Lumbar Integra [employer] Jaqui 12/02/2025 [id number] / / [id number] Lead Ns 65cm Spc Surescan 3 Clmn 16 Implanted:Qty: 1 on 04/08/2025 by Prabhu Estevez MD at [facility] Left: Spine Lumbar [employer] Inc 01/11/2029 [id number] / / [id number] Kit Acc .133in Injex Kathleen Baso4 Biwing Implanted:Qty: 1 on 04/08/2025 by Prabhu Estevez MD at [facility] Left: Spine Lumbar [employer] Inc 01/12/2029 [id number] / / [id number] Nrstm Impl Inceptiv Mri Strl Lf Disp - [id number] Implanted:Qty: 1 on 04/08/2025 by Prabhu Estevez MD at [facility] Left: Spine Lumbar [employer] 02/10/2027 [id number] / [id number] / Jhon Stm Nrv Inceptiv Spnl Cord Prgmr Xtrn - [id number] Implanted:Qty: 1 on 04/08/2025 by Prabhu Estevez MD at [facility] Left: Spine Lumbar [employer] Inc 05/07/2026 [id number] BILL ONLY / [id number] / Env Absb Med 2.7x2.5in Polyarylate Implanted:Qty: 1 on 04/08/2025 by Prabhu Estevez MD at [facility] Left: Spine Lumbar [employer] Inc [id number] 12/16/2025 [id number] / / [id number] Procedures Procedure Name Priority Date/Time Associated Diagnosis Comments FL ERIKA SURGERY Routine 04/08/2025 2:28 PM CDT Spinal stenosis of lumbar region, unspecified whether neurogenic claudication present HEPATITIS C AB SCREEN RFLX NAAT QUANT STAT 04/08/2025 2:26 PM CDT HEPATITIS B SURFACE ANTIGEN W RFLX CONFIRMATION Routine 04/08/2025 2:26 PM CDT HIV-1 HIV-2 ANTIBODY + HIV P24 AG PANEL Routine 04/08/2025 2:26 PM CDT ENDOTRACHEAL TUBE NOTE Routine 04/08/2025 1:23 PM CDT SC PERCUT IMPLNT NEUROELECT,EPIDURAL 04/08/2025 12:10 PM CDT Spinal stenosis of lumbar region, unspecified whether neurogenic claudication present Special Needs Prone C-ARM Neuromonitoring: SSEP, EMG, MEP--Case #: [id number] Equipment Vendors: Ranjit De La Vega 04/07 TYPE + SCREEN PANEL STAT 04/08/2025 11:08 AM CDT Pre-op evaluation CULTURE URINE Routine 03/29/2025 5:00 PM CDT Pre-op testing TYPE + SCREEN PANEL Routine 03/29/2025 3 :59 PM CDT Pre-op evaluation PTT Routine 03/29/2025 3:59 PM CDT Pre-op testing CBC W AUTO DIFFERENTIAL Routine 03/29/2025 3:59 PM CDT Pre-op testing BASIC METABOLIC PANEL (CALCIUM TOTAL) Routine 03/29/2025 3:59 PM CDT Pre-op testing XR CHEST 2VW Routine 03/29/2025 3:46 PM CDT Pre-op testing EKG 12-LEAD Routine 03/29/2025 2:20 PM CDT Pre-op testing MAMMO BILAT SCREENING W MOISÉS Routine 02/14/2025 3:38 PM CDT Encounter for screening mammogram for breast cancer CULTURE URINE Routine 02/07/2025 11:33 AM CDT Pre-op testing PTT Routine 02/07/2025 11:26 AM CDT Pre-op testing CBC W AUTO DIFFERENTIAL Routine 02/07/2025 11:26 AM CDT Pre-op testing BASIC METABOLIC PANEL (CALCIUM TOTAL) Routine 02/07/2025 11:26 AM CDT Pre-op testing XR CHEST 2VW Routine 02/07/2025 11:12 AM CDT Pre-op testing EKG 12-LEAD Routine 02/07/2025 10:59 AM CDT Pre-op testing from Last 3 Months Results * FL Erika Surgery (04/08/2025 2:28 PM CDT) Narrative [facility] RADIOLOGY - 04/08/2025 2:44 PM CDT Fluoroscopy was used for this exam in the OR. Please see the Operative report. us Prabhu Estevez MD FLUOROSCOPY ORDERABLES F inal Result [facility] RADIOLOG[facility] * HEPATITIS C AB SCREEN RFLX NAAT QUANT (04/08/2025 2:26 PM CDT) Hepatitis C Antibody Non-react demetra Non-reac tive 04/08/2025 3:46 PM CDT [facility] Comment:Hepatitis C Antibody screen indicates [...] CDT 04/08/2025 2:54 PM CDT Leeroy Walters APRN-ASSET PROTECTION MANAGER LAB - CHEMISTRY ORDERAB LES Final Result Performing Organization Address [facility] Co de Phone Number [address] [address], [facility] [phone] * HIV-1 HIV-2 ANTIBODY + HIV P24 AG PANEL (04/08/2025 2:26 PM CDT) HIV Antigen/Antibod y 1 & 2 Non-reacti ve Non-react demetra 04/08/2025 3:46 PM CDT [facility] Comment:No Laboratory eviden ce of HIV infection. Blood BLOOD SPECIMEN / Unknown 04/08/2025 2:26 PM CDT 04/08/2025 2:54 PM CDT Leeroy Walters INBOUND SALES MANAGER-ASSET PROTECTION MANAGER LAB - CHEMISTRY ORDERAB LES Final Result Performing Organization Address City/[facility]/ZIP Co de Phone Number [address] [place] [address], [place] [phone] * HEPATITIS B SURFACE ANTIGEN W RFLX CONFIRMATION (04/08/2025 2:26 PM CDT) Hepatitis B Virus Surface Antigen Non-reacti ve Non-reacti ve 04/08/2025 3:46 PM CDT [facility] Blood BLOOD SPECIMEN / Unknown 04/08/2025 2:26 PM CDT 04/08/2025 2:54 PM CDT Leeroy Walters INBOUND SALES MANAGER-ASSET PROTECTION MANAGER LAB - CHEMISTRY ORDERAB LES Final Result [address] [address], [facility] [phone] * ETT LINE PERFORMABLE (04/08/2025 1:23 PM CDT) Narrative Mario Atkinson CAA - 04/08/2025 1:23 PM CDT Mario Atkinson CAA 04/08/2025 1:26 PM Endotracheal Tube Placement: Patient Location: OR. Intubation Event Date/Time: 04/08/2025 12:44 PM Procedure: intubation (42704) Procedure Section: Sedation: under general anesthesia. Indications for Airway Management: anesthesia Induction: standard IV Patient Position: sniffing Mask Ventilation: easy with oral airway. Blade Type: Bird Blade Size: 2 Laryngoscopy View: grade 1 (full cords) Intubation Adjuncts: cricoid pressure and stylet Tube: endotracheal tube Placement: oral Tube type: cuff - inflated Tube Size (MM): 7 Depth of Insertion (CM): 20 Measured From: gums Cuff Inflated With: air Number of Attempts: 1. Placement Verified By: direct visualization, bilateral breath sounds, chest auscultation and CO2 monitor Tube secured with: adhesive tape (Tegaderms). Dentition unchanged? Yes Difficult Airway? No. Procedure Start Time: 04/08/2025 12:44 PM. Staff Section Anesthesia Provider: Mario Atkinson CAA, Performed the procedure Provider #1: Metal Cabinet Finisher, Student Anesthesiology Metal Cabinet Finisher Student Anesthesiology, Performed the procedure. Provider #2: Laury Obando MD. Additional Comments: Intubation performed under direct supervision by ALEXUS Arambula-1. Laury Obando MD GENERAL ANESTHESIA ORDERABL ES Edited Result - Final * TYPE + SCREEN PANEL (04/08/2025 11:08 AM CDT) Only the most recent of2 resultswithin the time period is included. Antibody Screen NEG 12:14 PM CDT [facility] ABO Rh A POS 04/08/2025 12:14 PM CDT [facility] Blood Bank BLOOD SPECIMEN / Unknown Venipuncture / Unknown 04/08/2025 11:08 AM CDT 04/08/2025 11:21 AM CDT Jovani Mayen MD LAB - BLOOD BANK ORDERABLES Fin al Result [facility]OD [facility] [address] [place] [address], [facility] [phone] * CULTURE URINE (03/29/2025 5:00 PM CDT) Only the most recent of2 resultswithin the time period is included. Pathologist [facility] Culture Urine 50,000-100,000 CFU/mL urogenital kamla 03/31/2025 3:13 AM CDT [facility] MICROBIOLOGY Urine URINE SPECIMEN OBTAINED BY CLEAN CATCH PROCEDURE / Unknown Collection / Unknown 03/29/2025 5:00 PM CDT 03/29/2025 5:20 PM CDT Prabhu Estevez MD LAB - MICROBIOLOGY ORDER GAGE Final Result [facility] MICROBIOLOGY [address] [place] [address], [facility] [phone] * PTT (03/29/2025 3:59 PM CDT) Only the most recent of2 resultswithin the time period is included. APTT 28.3 23.0 - 38.4 Seconds 03/29/2025 5:08 PM CDT [facility] Comment:Suggested therapeuti c range for full dose I.V. unfractionated heparin therapy for venous thromboembolism is 71 to 109 seconds. Blood BLOOD SPECIMEN / Unknown Lab Venipuncture / Unknown 03/29/2025 3:59 PM CDT 03/29/2025 4:43 PM CDT us Prabhu Estevez MD LAB - COAGULATION ORDERA BLES Final Result [facility] [address] [place] [address], [facility] [phone] * (ABNORMAL) CBC WITH DIFFERENTIAL (03/29/2025 3:59 PM CDT) Only the most recent of2 resultswithin the time period is included. WBC 13.0(H) 4.0 - 10.7 x10E9/L 03/29/2025 4:49 PM [facility] RBC Count 4.98 3.90 - 5.20 x10E12/L 03/29/2025 4:49 PM [facility] Hemoglobin 15.7 11.9 - 15.8 g/dL 03/29/2025 4:49 PM [facility] Hematocrit 45.5 34.8 - 46.1 % 03/29/2025 4:49 PM [facility] MCV 91.4 80.0 - 98.0 fL 03/29/2025 4:49 PM [facility] MCH 31.5 26.7 - 33.6 pg 03/29/2025 4:49 PM [facility] MCHC 34.5 31.7 - 36.3 g/dL 03/29/2025 4:49 PM [facility] RDW-CV 13.0 11.3 - 14.8 % 03/29/2025 4:49 PM [facility] Platelet Count 443(H) 150 - 420 x10E9/L 03/29/2025 4:49 PM [facility] MPV 9.9 7.8 - 11.4 fL 03/29/2025 4:49 PM [facility] Neutrophil % 59.5 41.0 - 74.0 % 03/29/2025 4:49 PM [facility] Lymphocyte % 28.1 17.0 - 47.0 % 03/29/2025 4:49 PM [facility] Monocyte % 6.9 3.0 - 11.0 % 03/29/2025 4:49 PM [facility] Eosinophil % 4.4 0.0 - 7.0 % 03/29/2025 4:49 PM [facility] Basophil % 0.5 0.0 - 1.6 % 03/29/2025 4:49 PM [facility] Immature Granulocytes % 0.6 0.0 - 1.0 % 03/29/2025 4:49 PM [facility] Neutrophil Absolute 7.71(H) 1.60 - 7.50 x10E9/L 03/29/2025 4:49 PM [facility] Lymphocyte Absolute 3.64 1.00 - 4.40 x10E9/L 03/29/2025 4:49 PM [facility] Monocyte Absolute 0.90 0.15 - 1.00 x10E9/L 03/29/2025 4:49 PM [facility] Eosinophil Absolute 0.57 0.00 - 0.60 x10E9/L 03/29/2025 4:49 PM [facility] Basophil Absolute 0.07 0.00 - 0.13 x10E9/L 03/29/2025 4:49 PM [facility] Blood BLOOD SPECIMEN / Unknown Lab Venipuncture / Unknown 03/29/2025 3:59 PM CDT 03/29/2025 4:43 PM CDT us Prabhu Estevez MD LAB - HEMATOLOGY ORDERAB LES Final Result [facility] [address] [place] [address], [facility] [phone] * (ABNORMAL) BASIC METABOLIC PANEL (CALCIUM TOTAL) (03/29/2025 3:59 PM CDT) Only the most recent of2 resultswithin the time period is included. BUN 6(L) 7 - 26 mg/dL 03/29/2025 5:11 PM [facility] Creatinine 0.78 0.56 - 0.96 mg/dL 03/29/2025 5:11 PM [facility] Sodium 142 136 - 145 mmol/L 03/29/2025 5:11 PM [facility] Potassium 3.8 3.5 - 4.5 mmol/L 03/29/2025 5:11 PM [facility] Chloride 107 98 - 107 mmol/L 03/29/2025 5:11 PM [facility] CO2 25 22 - 29 mmol/L 03/29/2025 5:11 PM [facility] Glucose 92 70 - 99 mg/dL 03/29/2025 5:11 PM [facility] Calcium 9.2 8.4 - 10.2 mg/dL 03/29/2025 5:11 PM [facility] Anion Gap 10 6 - 16 03/29/2025 5:11 PM [facility] BUN/Creatinine Ratio 8 7 - 23 03/29/2025 5:11 PM [facility] Osmolality Calculated 291 275 - 295 mOsm/kg 03/29/2025 5:11 PM [facility] eGFR by CKD-EPI >90 >=90 mL/min/1.7 3 m2 03/29/2025 5:11 PM [facility] Comment:Estimated Glomerular Filtration Rate (eGFR) calculated using the CKD-EPI Creatinine Equation (2020), per the National Kid[employer] Foundation and [place] [employer] recommendations. Blood BLOOD SPECIMEN / Unknown Lab Venipuncture / Unknown 03/29/2025 3:59 PM CDT 03/29/2025 4:43 PM T us Prabhu Estevez MD LAB - CHEMISTRY ORDERABL ES Final Result [facility] [address] [place] [address] [phone] * XR Chest 2Vw (03/29/2025 3:46 PM CDT) Only the most recent of2 resultswithin the time period is included. Anatomical Region Laterality Modality Chest Digital Radiogra phy 03/30/2025 7:52 AM CDT Narrative 03/30/2025 11:34 AM CDT PROCEDURE: XR CHEST 2VW, DATE/TIME OF EXAM: 03/29/2025 3:46 PM, LOCATION [facility] INDICATION: Z01.818: Pre-op testing Ordering Provider Reason For Exam: Technologist Note: Additional: None. COMPARISON: Chest x-ray on 02/07/2025 FINDINGS/IMPRESSION: No focal consolidation, pneumothorax, or pleural effusion. The cardiomediastinal silhouette is normal. Left hilar calcified granuloma. No displaced fractures identified. Report dictated by Omi Walker DO (residential manager). > Dictated by [employer]ber [employer] Pl[employer] Worker ISandra MD have personally reviewed and interpreted this examination/study. > Interpreting Provider: Sandra Cannon MD on 03/30/2025 11:34 AM Procedure Note Sandra Cannon MD - 03/30/2025 PROCEDURE: XR CHEST 2VW, DATE/TIME OF EXAM: 03/29/2025 3:46 PM, LOCATION [facility] INDICATION: Z01.818: Pre-op testing Ordering Provider Reason For Exam: Technologist Note: Additional: None. COMPARISON: Chest x-ray on 02/07/2025 FINDINGS/IMPRESSION: No focal consolidation, pneumothorax, or pleural effusion. The cardiomediastinal silhouette is normal. Left hilar calcified granuloma.No displaced fractures identified. Report dictated by Omi Walker DO (residential manager). > Dictated by Rubber And Plastics Worker Sandra Kessler MD have personally reviewed and interpreted this examination/study. > Interpreting Provider: Sandra Cannon MD on 03/30/2025 11:34 AM Prabhu Estevez MD DIAGNOSTIC IMAGING ORDER GAGE Final Result * EKG 12-Lead (03/29/2025 2:20 PM CDT) Only the most recent of2 resultswithin the time period is included. Ventricular Rate 70 BPM [facility] Atrial Rate 70 BPM [facility] P-R Interval 162 ms [facility] QRS Duration ms 86 ms [facility] Q-T Interval ms 416 ms [facility] QTC Calculation (Bezet) 449 ms [facility] Calculated P [place] 66 degrees [facility] Calculated R [place] 40 degrees [facility] Calculated T [place] 46 degrees [facility] Interpretation EKG NORMAL SINUS RHYTHM NORMAL ECG WHEN COMPARED WITH ECG OF 07-FEB-2025 10:59, NO SIGNIFICANT CHANGE WAS FOUND Confirmed by DEVIKA CESAR MD ([id number]) on 04/03/2025 11:37:59 PM Also confirmed by DEVIKA CESAR MD ([id number]) on 04/03/2025 11:40:39 PM [facility] 03/29/2025 2:20 PM CDT 04/03/2025 11:40 PM CDT us Prabhu Estevez MD ECG ORDERABLES Edited R esult - Final [facility] * Mammo Bilat Screening W [place] (02/14/2025 3:38 PM CDT) Anatomical Region Laterality Modality Breast Bilateral Mammography 02/15/2025 11:0 8 AM CDT Impressions 02/15/2025 1:08 PM CDT IMPRESSION: Annual screening mammography is recommended. OVERALL FINAL ASSESSMENT: BI-RADS CATEGORY 2: BENIGN. > Interpreting Provider: Tricia Lozada MD on 02/15/2025 1:08 PM Narrative 02/15/2025 1:08 PM CDT EXAMINATION: BILATERAL DIGITAL SCREENING MAMMOGRAM AND BILATERAL BREAST TOMOSYNTHESIS HISTORY: Screening. COMPARISON: 03/17/2023 and serial prior mammogram examinations dating back to 06/04/2017. TECHNIQUE: BILATERAL digital breast tomosynthesis (DBT) and synthetic 2D digital mammogram images were obtained (bilateral craniocaudal and mediolateral oblique projections) including computer aided detection (CAD.) A LXCCL projection was included. BREAST PARENCHYMAL COMPOSITION: Category B: There are scattered areas of fibroglandular density. MAMMOGRAM FINDINGS: There is no suspicious finding in either breast. There are expected findings of bilateral reduction mammoplasty with extensive areas of benign calcified fat necrosis. Overall, there has been no significant interval change. Hawa Villarreal INBOUND SALES MANAGER-ASSET PROTECTION MANAGER MAMMO ORDERABLES Final R esult from Last 3 Months Insurance Advance Directives * Full Code (Latest Code Status on File) Date Activated Date Inactivated Comments 06/26/2018 1:20 AM 07/02/2018 7:19 PM * Full Code Date Activated Date Inactivated Comments 06/24/2018 9:40 AM 06/25/2018 11:01 PM * Full Code Date Activated Date Inactivated Comments 06/24/2018 3:17 AM 06/24/2018 9:40 AM * Full Code Date Activated Date Inactivated Comments 02/01/2016 6:07 PM 02/02/2016 1:58 PM * Full Code Date Activated Date Inactivated Comments 07/20/2010 8:48 PM 07/24/2010 5:27 AM Care Teams Garbage Collection Supervisor Relationship Specialty Start Date End Date Ama Ramirez INBOUND SALES MANAGER-ASSET PROTECTION MANAGER [address] [facility] [address], [place] [phone] PCP - General Internal Medicine 01/23/23 Clifton Moreno MD [address] [place] [address] Prototype Model Maker Urogynecology 01/31/23 Hawa Villarreal, INBOUND SALES MANAGER-ASSET PROTECTION MANAGER [address] [place] [address] [address], [address] [place] [address] Nurse Practitioner 01/31/23 Rissa Mercer MD [address] [place] [address] Gang Head Saw Operator Rheumatology 01/18/25
--- OUTSIDE RECORDS SUMMARY | 2025-04-20 10:42 | XMS_ITS | Encounter Summary ---
Author Organization [facility] Healthcare Address [address] [place] [address] Care Team Providers Care Sheet Metal Insulator Name Role Phone Ama Ramirez NP Primary Care Provider [phone] Encounter Details Date Type Department Care Team (Latest Contact Info) Description 03/03/2025 Results Follow-Up [facility] [address] [facility] [address] [place] [address] Caitlin Vivar NP [address] [facility] [address] [address] CT Head WO Contrast, CRP (acute phase), Erythrocyte sedimentation rate, Additional followed-up results: 7 Social History Tobacco Use Types Packs/Day Years Used Date Smoking Tobacco: Every Day Cigarettes 0.4 4.1 Started: 03/04/2021 Smokeless Tobacco: Never Comments:Smoking History Pac ks/day: 0.5 Packs Alcohol Use Standard Drinks/Week Comments No 0 (1 standard drink = 0.6 oz pur e alcohol) PHQ-2 Answer Date Recorded PHQ-2 Total Score (If total score is 3 or more points, staff should administer the PHQ-9) 0 03/03/2025 Comments No Sex and Gender Information Value Date Recorded Sex Assigned at Not on file Legal Sex Female 2:39 PM MAPPING PILOT Gender Identity Female 10/02/2023 5:09 PM CDT Sexual Orientation Straight 10/02/2023 5: 09 PM CDT documented as of this encounter Plan of Treatment Not on file documented as of this encounter Visit Diagnoses Not on filedocumented in this encounter Care Teams Sheet Metal Insulator Relationship Specialty Start Date End Date Ama Ramirez NP [address] [address] PCP - General Internal Medicine 06/10/22 documented as of this encounter
--- OUTSIDE RECORDS SUMMARY | 2025-04-20 10:42 | XMS_ITS | Encounter Summary ---
Author Organization [facility] Address [address] [facility] [address] Care Team Providers Care Stringing Machine Operator Name Role Phone Danish Gibbs Primary Care Provider [phone] Ama Ramirez SALES INTERN-HEALTH SERVICES COORDINATOR Primary Care Provider [phone] Clifton Moreno MD Unavailable [phone] Hawa Villarreal SALES INTERN-HEALTH SERVICES COORDINATOR Unavailable [phone] Rissa Mercer MD Unavailable [phone] Encounter Details Date Type Department Care Team (Late st Contact Info) Description 07/08/2022 Telephone [facility] [address] [place] [address] Rissa Mercer MD [address] [address] Social History Tobacco Use Types Packs/Day Years Used Date Smoking Tobacco: Former Cigarettes 1 - 2015 Smokeless Tobacco: Never Comments:quit 3 years [...] occasion? Never 09/12/2021 PHQ-2 Answer Date Recorded PHQ2 TOTAL SCORE 0 06/05/2022 Comments No Sex and Gender Information Value Date Recorded Sex Assigned at Female 10/16/2020 9:09 AM CDT Legal Sex Female 12:38 PM SPECIAL FORCES ENGINEER SERGEANT Gender Identity Female 10/16/2020 9:09 AM CDT [...] Rosi French RN documented in this encounter Plan of Treatment Upcoming Encounters Date Type Department Care Team (Late st Contact Info) Description 05/02/2025 8:00 AM SPECIAL FORCES ENGINEER SERGEANT Office Visit [facility] - Neurosurgery [address] [place] [address], [place] [address] Prabhu Estevez MD [address] [place] [address] [place] [phone] documented as of this encounter Goals Goal [...] on filedocumented in this encounter Care Teams Stringing Machine Operator Relationship Specialty Start Date End Date Danish Gibbs PA [address] [place] [address] PCP - General Physician Mixer Attendant 04/14/15 01/22/23 Ama Ramirez, SALES INTERN-HEALTH SERVICES COORDINATOR [address] [facility] [address], [place] [phone] PCP - General Internal Medicine 01/23/23 Clifton Moreno MD [address] [place] [address] Produce Laborer Urogynecology 01/31/23 Hawa Villarreal, SALES INTERN-HEALTH SERVICES COORDINATOR [address] [facility] [address] [place] [address] Nurse Practitioner 01/31/23 Rissa Mercer MD [address] [place] [address] Power Plant Technician Rheumatology 01/18/25 documented as of this encounter
== END 2025-04-20 09:47 | disposition home or self-care (01) ==
PROVIDERS: Emergency Provider Emergency Medicine
DX: Z48.811 Encounter for surgical aftercare following surgery on the nervous system (principal); I10 Essential (primary) hypertension; Z87.891 Personal history of nicotine dependence; Z79.899 Other long term (current) drug therapy
CPT/HCPCS: 99281